=== PATIENT | male | born 1935 | race Caucasian/White ===

== ENCOUNTER 2025-02-06 14:50 | Inpatient (IN) | payer MEDICARE, SELFPAY ==
[2025-02-06] VITALS (32 sets, daily range): BP systolic 100–160; BP diastolic 41–110; PULSE 35–89; RESP 13–30; TEMP 36.4–36.5; O2SAT 90–100; BMI 24.5
--- NOTE | ~2025-02-06 | CT_ITS ---
CT cervical spine wo con Ordering provider: Fernando Banuelos MD History: . Found down . Comparison: None. Technique: CT of the cervical spine was performed without contrast. Sagittal and coronal reformatted images were also obtained and reviewed. Automated exposure control and iterative reconstruction satish hnique were employed. The dose-length product was 459.76 mGy-cm. FINDINGS: VERTEBRAE: No subluxation or acute fracture. The occipital condyles are intact. Postoperative changes involving C5, C6 and C7. 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 DISC SPACES: Normal. Multilevel facet joint disease.. Multilevel uncovertebral joint osteoarthritic changes. Narrowing of the foramina at the level of C3-C4. Narrowing of the left foramina at the level of C4-C5. PARASPINOUS SOFT TISSUES: Normal. Atelectatic changes in the right lung posteriorly. Enlarged thyroid gland with nodules. Ultrasound ev aluation advised. IMPRESSION: No acute osseous abnormality cervical spine. Multilevel degenerative disc disease. Postoperative changes. Reviewed, dictated and finalized at location A.
--- NOTE | ~2025-02-06 | XR_ITS ---
XR knee LT 3V Ordering provider: Raza Terrazas MD History: . pain after a fall . Comparison: None. FINDINGS: BONES: No acute fracture or dislocation. JOINT SPACES: Normal. SOFT TISSUES: Normal. IMPRESSION: No acute osseous abnormality left knee. Reviewed, dictated and finalized at location A.
--- NOTE | ~2025-02-06 | US_ITS ---
Limited Abdominal Sonogram: Real-time sonographic imaging of the right upper quadrant was performed. Clinical History: Abnormal gallbladder on CT Findings: The liver appears echogenic, with no evidence of mass lesion or bile duct dilatation. Main portal vein demonstrates normal direction of flow. The gallbladder dose is mild wall thickening up t o 4 mm. Questionable stone at the gallbladder fundus. The common bile duct measures 5 mm. The visual ized pancreas, aorta, and IVC are unremarkable. Impression: Mild gallbladder wall thickening. Questionable gallstone. Consider MR/MRCP as indicated. Reviewed, dictated and finalized at location M. Impression: Mild gallbladder wall thickening. Questionable gallstone. Consider MR/MRCP as i ndicated.
--- NOTE | ~2025-02-06 | CT_ITS ---
CT brain wo con Ordering provider: Fernando Banuelos MD History: 89 years Male with . Found down, unresponsive . Comparison: July 02, 2007 Technique: CT of the head without contrast. Radiation reduction technique utilized.The dose-length pr oduct was 1210.67 mGy-cm. FINDINGS: BRAIN PARENCHYMA AND CSF SPACES: Mild leukoaraiosis and diffuse cortical atrophy. Mild atheromatous d isease. No midline shift, mass effect or hemorrhage. The brain parenchyma and CSF spaces are otherwi se normal. VISUALIZED PARANASAL SINUSES: Bilateral maxillary and ethmoid sinus disease. Otherwise, Well aerated. MASTOIDS: Status post left mastoidectomy with soft tissue density which may be fluid is seen in the l eft middle ear. Effusion is seen in the remaining left mastoid air cells and in the right mastoid air cells posteriorly. BONES: The bones appear intact. SOFT TISSUES: Visualized nasopharynx is normal. Superficial soft tissues are normal. IMPRESSION: No acute intracranial findings. Reviewed, dictated and finalized at location A.
--- NOTE | ~2025-02-06 | CT_ITS ---
EXAMINATION: CTA chest abdomen pelvis DATE: 02/06/2025 16:42 INDICATION: Found down and unresponsive TECHNIQUE: Computed tomographic angiography (CTA) of the chest, abdomen and pelvis was performed with 100 cc of Omnipaque-350 intravenous contrast. Additional 3D reconstructions utilizing rotating maxim um intensity projection (MIP) were performed. Automated exposure control and iterative reconstruction technique were employed. The dose-length product was 1116.75 mGy-cm. COMPARISON: None FINDINGS: Chest: There are few scattered bilateral calcified pulmonary nodules along with calcified bilateral hilar an d mediastinal lymph nodes consistent with old granulomatous disease. Dependent atelectasis in the alo ateral upper and lower lobes. No pneumonia, pulmonary edema, pleural effusion or pneumothorax. Cardio megaly. Atherosclerotic coronary artery calcification. No pericardial effusion. Thoracic aorta is nor mal in caliber with no dissection. No pathologically enlarged thoracic lymphadenopathy. Multinodular goiter with up to 3.6 cm mass in the left thyroid lobe. Possible small sliding-type hiatal hernia. C5 -C6 and C6-C7 anterior spinal fusion with interbody bone graft cages and anterior plate-screw fixatio n. There are bridging osteophytes at multiple levels in the thoracic spine consistent with diffuse id iopathic skeletal hyperostosis (DISH). Abdomen and pelvis: Stenting of the distal common bile duct extending through the ampulla into the duodenum with secondar y pneumobilia in the normal caliber common bile duct, the nondilated gallbladder and in the nondepend ent intrahepatic biliary tree in the left hepatic lobe. There is edematous wall thickening of the gal lbladder but without surrounding inflammatory stranding or dilation to suggest acute cholecystitis. S pleen, pancreas and bilateral adrenal glands are normal. There are multiple bilateral renal cysts. Th ere is severe left hydronephrosis with no evident obstructing stone or mass at the transition point a t the ureteropelvic junction. Asymmetric moderate to severe left-sided and mild right-sided renal atr ophy. There are few scattered colonic diverticula without adjacent inflammatory stranding to suggest diverticulitis. No bowel obstruction. Distention of the bladder which could be related to outlet obst ruction from the enlarged prostate which measures 5.6 x 4.9 cm. 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 No free intraperitoneal gas or fluid. No pathologically enlarged abdomin al or pelvic lymphadenopathy. Moderate lumbar spondylosis with L4 laminectomy and instrumented L4-L5 posterior spinal fusion with bilateral vertical saniya and pedicle screw fixation. Abdominal aorta is normal in caliber with extensive nonhemodynamically significant atherosclerotic pl aque. No aneurysm or dissection. 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 IMPRESSION: 1. Dependent atelectasis in both lungs. No aortic aneurysm, dissection or other acute cardiopulmonary disease. 2. Cardia megaly. 3. Possible small sliding-type hiatal hernia. 4. Pneumobilia likely related to a distal biliary stent. 5. Edematous wall thickening of the gallbladder but without dilation or pericholecystic inflammatory stranding to suggest acute cholecystitis is more likely related to either chronic cholecystitis, hear t failure, renal failure or other generalized edema forming states. 6. 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 7. 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 8. Distended bladder which could be due to chronic outlet obstruction from the enlarged prostate. Reviewed, dictated and finalized at location A. IMPRESSION: 1. Dependent atelectasis in both lungs. No aortic aneurysm, dissection or other acute cardiopulmonary disease. 2. Cardia megaly. 3. Possible small sliding-type hiatal hernia. 4. Pneumobilia likely related to a distal biliary stent. 5. Edematous wall thickening of the gallbladder but without dilation or pericho lecystic inflammatory stranding to suggest acute cholecystitis is more likely r elated to either chronic cholecystitis, heart failure, renal failure or other g eneralized edema forming states. 6. 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 7. 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 8. Distended bladder which could be due to chronic outlet obstruction from the enlarged prostate.
--- NOTE | ~2025-02-06 | XR_ITS ---
Exam: Abdomen 1V HISTORY: Pancreatic Stent Placement Verification COMPARISON: Reference is made to a CT examination of the chest abdomen and pelvis dated 02/06/2025 TECHNIQUE: Supine images of the abdomen FINDINGS: Redemonstration of what appears to be a bare metal stent, better seen on recent CT examination within the distal common bile duct rather than the pancreatic duct. The orientation of the stent is unchanged from recent CT scan. IMPRESSION: Orientation of the biliary stent is unchanged from recent CT examination dated 02/06/2025, as detailed above. Reviewed, dictated and finalized at location A.
--- NOTE | 2025-02-06 14:58 | ECG_ITS ---
Test Date: 2025-02-06 15:05:51 Measurements Intervals [place] Rate: 59 P: 0 CA: 0 QRS: 34 QRSD: 149 T: 40 QT: 475 QTc: 471 Interpretive Statements SINUS BRADYCARDIA WITH MARKED FIRST DEGREE AV BLOCK WITH VENTRICULAR PREMATURE COMPLEXES RIGHT BUNDLE BRANCH BLOCK BASELINE ARTIFACT- I, II, II, AVR, AVL, AVF, V1-V6 ABNORMAL ECG No previous ECG available for comparison Electronically Signed On 02-06-2025 15:12:49 CDT by Frederick Fried D.O.
--- NOTE | 2025-02-06 15:21 | ECG_ITS ---
Test Date: 2025-02-06 15:23:19 Measurements Intervals [place] Rate: 48 P: 0 [place]: 0 QRS: 22 QRSD: 158 T: 31 QT: 495 QTc: 443 Interpretive Statements SINUS RHYTHM WITH SECOND DEGREE AV BLOCK, TYPE I (MOBITZ I) RIGHT BUNDLE BRANCH BLOCK BASELINE ARTIFACT- I, II, III, AVR, AVL, AVF, V1-V6 ABNORMAL ECG Compared to ECG 02/06/2025 15:05:51 SECOND DEGREE AV BLOCK NOW PRESENT Electronically Signed On 02-06-2025 15:32:12 CDT by Frederick Fried D.O.
[2025-02-06 15:26] LABS: Basophils Percent Auto 0.4 % (0.2-1.2); Eosinophils Absolute Auto 0.1 K/mm3 (0-0.3); Eosinophils Percent Auto 0.6 % (0-4.4); Hematocrit 35.3 % (42.0-52.0); Hemoglobin 11.7 g/dL (14.0-18.0); Immature Granulocyte Absolute 0.03 K/mm3 (0.00-0.031); Immature Granulocyte Percent A 0.3 % (0-0.5); Lymphocytes Absolute Auto 1.59 K/mm3 (0.9-3.2); Lymphocytes Percent Auto 15.8 % (18.3-44.2); Mean Corpuscular HGB Conc 33.1 g/dl (32-36); Mean Corpuscular Hemoglobin 30.2 pg (26-34); Mean Corpuscular Volume 91.2 fl (80-100); Mean Platelet Volume 9.9 fl (7.4-10.4); Monocytes Absolute Auto 1.1 K/mm3 (0.1-0.6); Monocytes Percent Auto 10.9 % (2.6-8.5); Neutrophils Absolute Auto 7.2 K/mm3 (1.3-6.7); Platelet Count Result 307 k/mm3 (150-375); Red Blood Count 3.87 M/mm3 (4.6-6.20); Red Cell Distribution Width 14.4 % (11.5-14.5); White Blood Count 10.1 K/mm3 (4.5-10.0)
[2025-02-06] MEDS: NALOXONE HCL 0.4 MG/ML VIAL IV PUSH (15:27)
[2025-02-06 15:30] LABS: Glucose Point of Care 106 mg/dl (65-105)
[2025-02-06 15:38] LABS: Alanine Aminotransferase 17 U/L (6-50); Albumin Level 4.1 g/dL (3.5-5.1); Alkaline Phosphatase 152 U/L (38-126); Anion Gap 11 mmol/L (4-12); Aspartate Amino Transferase 24 U/L (17-59); Bilirubin,Total 0.7 mg/dL (0.2-1.3); Blood Urea Nitrogen 52 mg/dL (9-20); Calcium 8.8 mg/dL (8.4-10.2); Carbon Dioxide 21 mmol/L (22-30); Chloride 105 mmol/L (98-107); Estimated CRCL calculation 18 ml/min; Estimated Glomerular Filt Rate 22; Glucose 111 mg/dL (65-110); Potassium 4.6 mmol/L (3.4-5.0); Sodium 137 mmol/L (137-145)
[2025-02-06 15:42] LABS: INR 1.1; Prothrombin Time 14.6 Seconds (11.1-14.7)
[2025-02-06 15:43] LABS: Add Urine Microscopic? YES; Appearance Urine Cloudy (Clear); Bacteria Urine 4+ /hpf; Bilirubin Urine Negative (Negative); Blood Urine 2+ (Negative); Color Urine Yellow (Yellow); Glucose Urine UA Negative (Negative); Ketones Urine Negative (Negative); Leukocyte Esterase Ur 3+ LEU/UL (Negative); Nitrate Urine Negative (Negative); Protein Urine 1+ mg/dL (Negative); RBC Urine 21-50 /hpf (0-2); Specific Grav Ur 1.015 (1.001-1.035); Squamous Epithelial Cell Urine None Seen /hpf (Few); Urobilinogen Urine 0.2 mg/dL (<2.0); WBC Urine >100 /hpf (0-3); pH Urine 5.5 (5.0-9.0)
--- OUTSIDE RECORDS SUMMARY | 2025-02-06 15:45 | XMS_ITS | Clinical Summary ---
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 Name Role Phone Unavailable Primary Care Provider Unavailabl e Social History Tobacco Use Types Packs/Day Years Used Date Smoking Tobacco: Never Assessed Sex and Gender Information Value Date Recorded Sex Assigned at Not on file Legal Sex Male 5:43 PM CDT Gender Identity Not on file Sexual Orientation Not on file Plan of Treatment Health Maintenance Due Date Last Done Comments DTaP, Tdap and Td Vaccines ( 1 - Tdap) 1956 Zoster Vaccines (1 of 2) 1987 Pneumococcal Vaccine: 65+ Ye ars (1 of 1 - PCV) 2002 RSV Immunization or 60+ Years (1 - 1-dose 75+ series) 2012 COVID-19 Vaccine ( - 2023-2 5 season) 2024 Meningococcal B Vaccine Aged Out No l onger eligible based on patient's age to complete this topic Meningococcal Vaccine Aged Out No suyapa homer eligible based on patient's age to complete this topic RSV Immunizations Under 20 Months Aged Out No longer eligible based on patient's age to complete this topic
--- OUTSIDE RECORDS SUMMARY | 2025-02-06 15:46 | XMS_ITS | Clinical Summary ---
Author Organization [facility] Address [address] [place] [address] Care Team Providers Care Back Shoe Operator Name Role Phone Patricio Yeboah MD Primary Care Provider [phone] Allergies No known active allergies Medications miscellaneous medical supply misc 1 each once for 1 dose 1 each 1 02/12/20 24 Active mometasone (NASONEX) 50 mcg/actuation nasal sprayIndication s:Seasonal allergic rhinitis, unspecified trigger Administer 2 sprays into each nostril daily 17 g 11/11/19 25 Active diclofenac sodium (VOLTAREN) 1 % gel Apply 4 g topically 4 (four) times a day 200 g 01/07/20 25 026 Active lisinopril-hydr oCHLOROthiazide (ZESTORETIC) 20-25 mg per tabletIndicatio ns:hypertension Take 2 tablets by mouth daily 60 tablet 11 01/10/20 25 026 Active terazosin (HYTRIN) 5 mg capsuleIndicati ons:Primary hypertension,Be nign prostatic hyperplasia with nocturia Take 1 capsule (5 mg total) by mouth nightly 90 capsule 1 01/10/20 25 026 Active atenoloL (TENORMIN) 25 mg tabletIndicatio ns:Essential hypertension,Pr imary hypertension Take 1 tablet (25 mg total) by mouth daily 90 tablet 3 01/10/20 25 026 Active amLODIPine (NORVASC) 10 mg tabletIndicatio ns:Essential hypertension Take 1 tablet (10 mg total) by mouth daily 90 tablet 2 01/10/20 25 Active traMADoL (ULTRAM) 50 mg tabletIndicatio ns:Chronic midline low back pain without sciatica Take 1 tablet (50 mg total) by mouth every 8 (eight) hours as needed for pain 90 tablet 3 01/10/20 25 Active zolpidem CR (AMBIEN CR) 12.5 mg CR tabletIndicatio ns:Insomnia Take 1 tablet (12.5 mg total) by mouth nightly as needed for sleep 30 tablet 3 01/10/20 25 025 Active pregabalin (LYRICA) 25 mg capsuleIndicati ons:Neuropathy Take 2 capsules (50 mg total) by mouth nightly 180 capsule 3 01/10/20 25 026 Active testosterone 20.25 mg/1.25 gram (1.62 %) gel in metered-dose pumpIndications :Male hypogonadism Place 1 Pump on the skin daily 75 g 5 01/10/20 25 Active pregabalin (LYRICA) 25 mg capsule Take 2 capsules (50 mg total) by mouth nightly 180 capsule 3 05/10/20 23 025 Discontinued(R eorder) traMADoL (ULTRAM) 50 mg tabletIndicatio ns:Chronic midline low back pain without sciatica Take 1 tablet (50 mg total) by mouth every 8 (eight) hours as needed for pain 90 tablet 3 08/12/20 24 025 Discontinued lisinopril-hydr oCHLOROthiazide (ZESTORETIC) 20-25 mg per tabletIndicatio ns:hypertension Take 2 tablets by mouth daily 60 tablet 11 11/11/19 25 025 Discontinued(R eorder) terazosin (HYTRIN) 5 mg capsuleIndicati ons:Primary hypertension,Be nign prostatic hyperplasia with nocturia Take 1 capsule (5 mg total) by mouth nightly 90 capsule 1 11/11/19 25 025 Discontinued(R eorder) testosterone 20.25 mg/1.25 gram (1.62 %) gel in metered-dose pumpIndications :Male hypogonadism Place 1 Pump on the skin daily 75 g 5 11/11/19 25 025 Discontinued(R eorder) atenoloL (TENORMIN) 50 mg tabletIndicatio ns:Essential hypertension,Pr imary hypertension Take 1 tablet (50 mg total) by mouth daily 90 tablet 3 11/11/19 25 025 Discontinued amLODIPine (NORVASC) 10 mg tabletIndicatio ns:Essential hypertension Take 1 tablet (10 mg total) by mouth daily 90 tablet 2 11/11/19 25 025 Discontinued(R eorder) zolpidem CR (AMBIEN CR) 12.5 mg CR tabletIndicatio ns:Insomnia Take 1 tablet (12.5 mg total) by mouth nightly as needed for sleep 30 tablet 3 12/31/19 25 025 Discontinued(R eorder) traMADoL (ULTRAM) 50 mg tabletIndicatio ns:Chronic midline low back pain without sciatica Take 1-2 tablets (50-100 mg total) by mouth every 8 (eight) hours as needed for pain 60 tablet 12/31/19 25 025 Discontinued Active Problems Problem Noted Date Diagnosed Date Choledocholithiasis 01/20/2025 Erosive osteoarthritis of both hands 01/06/2025 Dental caries 08/12/2024 Hearing aid worn 05/12/2024 Pseudophakia of both eyes 03/20/2024 Assessment & Plan (03/20/2024 1:13 PM CDT): Stable. Observe. Epiretinal membrane (ERM) of right eye Assessment & Plan (03/20/2024 1:14 PM CDT): Minimal impact on vision at present. Observe. 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 Pre-treatment iop: 30/27. S/p SLT. IOP great today off drops. No loss on OCT. CTM off drops. F/u annually. 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 IOP high pretreatment. Has significant trouble with medications - SLT may not eliminate gtts. R/B/A discussed, offered SLT OU today. Pt would like to proceed with SLT OU today. Depression screening:Neg 2020 NOv 12/02/2019 Neuropathy 07/30/2019 Primary insomnia 06/16/2019 Alcohol screening Neg 11/2006/16/2019 Male hypogonadism 03/04/2019 Eczema 02/12/2019 Chronic midline low back pain without sciatica 0 12/03/2018 CRD (chronic renal disease), stage III 8 Does not exercise 09/05/2016 Chronic fatigue 07/08/2015 Erectile dysfunction 04/16/2014 Hypertension 06/27/2011 Hypogonadism in male 03/09/2008 Enlarged prostate without lo wer urinary tract symptoms (luts) 03/09/2008 Resolved Problems Problem Noted Date Diagnosed Date Resolved Date Medicare annual wellness vis it, subsequent:05/1705/18/2020 11/15/2021 Acute low back pain with right-sided sciatica 05/06/20 19 06/16/2019 Rash 01/29/2019 12/02/2019 Sudden hearing loss, bilateral 06/12/2018 06/03/2019 Assessment & Plan (06/12/2018 3:17 PM CDT): - likely secondary cerumen impaction; otherwise his SNHL is long-standing Bilateral impacted cerumen 06/12/2018 0 06/18/2018 Assessment & Plan (06/12/2018 3:16 PM CDT): I discussed the management of cerumen impaction, which includes avoiding q-tips and manipulation of the ear canal. The patient may also try either a few drops mineral oil, sweet oil, diluted hydrogen peroxide, or Debrox once a week 10-15 minutes prior to showering. The patient was advised to call if the ear canal became painful, started draining, or hearing loss was noticed. 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 06/12/2018 06/18/2018 Assessment & Plan (06/12/2018 3:17 PM CDT): - recommend trial of hearing aids Nuclear sclerotic cataract 11/15/2016 0 04/09/2019 Encounters Date Type Department Care Team Description 02/06/2025 Telephone [facility] Gastroenterology [address] [place] [address] Medical Office Building [address], [address] [place] [phone] Vaishali Nowak RN GI call back 02/05/2025 Telephone [facility] Gastroenterology [address] [place] [address] Medical Office Building [address], [address] [place] [address] Vaishali Nowak RN GI post ERCP kub recs 01/27/2025 2:30 PM CDT - 01/27/2025 3:30 PM CDT Surgery [address] [place] [id number] Doug Maldonado MD ENDO ENDOSCOPIC RETROGRADE CHOLANGIOPANCREATOGRAPHY WITH STENT PLACEMENT [GI509] 01/27/2025 2:16 PM CDT Anesthesia Event [address] [place] [id number] Teo Boykin MD Leach, Shannin L., CRNA 01/27/2025 1:51 PM CDT - 01/27/2025 4:35 PM CDT Hospital Encounter [address] [place] [id number] Doug Maldonado MD Calculus of bile duct without cholecystitis and without obstruction Discharge Disposition: Discharge to home or self care 01/21/[address] [phone] Patricio Yeboah MD 01/20/2025 3:20 PM CDT Office Visit [address] [phone] Patricio Yeboah MD Choledocholithiasis (Primary Dx) 01/16/2025 7:26 AM CDT - 01/16/2025 11:59 PM CDT Hospital Encounter [facility] Radiology [address] [place] [address] Elevated alkaline phosphatas e level; Transaminitis Discharge Disposition: Discharge to home or self care 01/16/2025 Telephone [facility] Services [address] [place] [address] Noemy Mascorro RN GI Preprocedure 01/16/2025 Orders Only [address] [phone] Patricio Yeboah MD Calculus of bile duct without cholecystitis and without obstruction (Primary Dx) 01/13/2025 Results Follow-Up [address] [phone] Maisha Carrera CMA 01/12/[address] [phone] Patricio Yeboah MD 01/12/2025 Orders Only [address] [phone] Patricio Yeboah MD Elevated alkaline phosphatase level (Primary Dx); Transaminitis 01/09/2025 2:20 PM CDT Office Visit [address] [phone] Patricio Yeboah MD Neuropathy (Primary Dx); Essential hypertension; Primary hypertension; Benign prostatic hyperplasia with nocturia; Chronic midline low back pain without sciatica; Primary insomnia; Male hypogonadism 01/06/2025 2:00 PM CDT Office Visit [facility] Rhe[facility]ology [id number] 5[address] [place] [address] [place] [phone] Eliseo Ziegler MD PhD Erosive osteoarthritis of both hands (Primary Dx); Pain in both hands 12/03/[address] [phone] Patricio Yeboah MD Med Refill 11/12/[address] [phone] Patricio Yeboah MD 11/11/2024 11:35 AM NITROGLYCERIN SUPERVISOR Lab [address] [phone] 11/11/2024 10:20 AM NITROGLYCERIN SUPERVISOR Office Visit [address] [phone] Patricio Yeboah MD Chronic fatigue (Primary Dx); Essential hypertension; Primary hypertension; Male hypogonadism; Stage 3b chronic kidney disease (HCC); Benign prostatic hyperplasia with nocturia; Primary insomnia; Seasonal allergic rhinitis, unspecified trigger from Last 3 Months Immunizations Immunization Administration Dates Next Due DT 03/02/2015 Influenza, Quadrivalent, Hig h Dose, Preservative Free, Intrr 08/24/2023,08/22/2022,08/16/2021,08/17 Influenza, Trivalent, Adjuva nted, Intramuscular 08/01/2018 Influenza, Trivalent, High D ose, Split, Preservative Free, Intramuscular 08/12/2024,07/04/2019,07/31/2017,07/08 Influenza, Trivalent, Preser vative Free, Intramuscular 07/13/2016 Influenza, Unspecified 07/29/2021,2019,08/12/2014,07/29,08/29/2009,08/03/2006,08/31/2005 ,09/05/2003,09/04/2002,09/05/2001 Moderna SARS-CoV-2 Monovalen t Vaccination (12+ YRS) 03/09/2022,09/12/2021,01/09/2021,12/12 Pneumococcal Conjugate PCV 13 03/02/2015, 013 Pneumococcal Conjugate Pcv20 01/30/2023 Pneumococcal Polysaccharide PPV23 11/27/2005 Pneumococcal, Unspecified 11/27/2005 Tdap 12/21/2023,08/12/2014 ZOSTER Recombinant 06/17/2019,03/29/2018 Surgical History Surgery Date Site/Laterality Comments BACK SURGERY Back Surgery - spinal fusion (Added by TW Conv) [place] TRACHEOSTOMY PLANNED SEPA RATE PROCEDURE Tracheostomy - for appx 4 months 1996 (Added by TW Conv) EYE SURGERY CATARACT EXTRACTION Bilateral Medical History Medical History Date Comments Personal history of other di seases of the circulatory system History of hypertension - (A dded by TW Conv) 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 - (Added by TW Conv) Rash and other nonspecific s kin eruption Maculopapular rash, generali zed - (Added by TW Conv) Personal history of other in fectious and parasitic diseases History of scabies - (Added by TW Conv) Pain in right hip Right hip pain - (Added by TW Conv) Generalized skin eruption du e to drugs and medicaments taken internally Cephalosporin drug ra sh - (Added by TW Conv) Family History Medical History Relation Name Comments Heart attack Brother Cancer Father Lung Heart attack Mother Family history of myocardial infarction - mi (Added by TW Conv) Glaucoma Neg Hx Relation Name Status Comments Brother Father Mother Social History Tobacco Use Types Packs/Day Years Used Date Smoking Tobacco: Never Smokeless Tobacco: Never Tobacco Cessation:Counseling Given: Not Answered Alcohol Use Standard Drinks/Week Comments Not Currently 0 (1 standard drink = 0.6 oz pur e alcohol) AUDIT-C Answer Date Recorded Q1: How often do you have a drink containing alc ohol? Never 01/27/2025 Average Number of Drinks Not on file 025 Frequency of Binge Drinking Not on file 10/2024 PHQ-2 Answer Date Recorded PHQ-2 Total Score (If total score is 3 or more points, staff should administer the PHQ-9) 0 05/16/2022 Personal Safety Answer Date Recorded Have you ever been in or are you currently in a harmful physical or emotional relationship or is someone making you feel afraid or unsafe? 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 Gender Identity Not on file Sexual Orientation Not on file Occupation Industry Job Start Date Job End Date Retired Not on file Not on file Not on file Obstetrics History Last Filed Vital Signs Vital Sign Reading Time Taken Comments Blood Pressure 113/60 01/27/2025 4:16 PM CDT Pulse 43 01/27/2025 4:16 PM CDT Temperature 36.1 C (97 F) 01/27/2025 3:16 PM CDT Respiratory Rate 17 01/27/2025 4:16 PM CDT Oxygen Saturation 96% 01/27/2025 4:16 PM CDT Inhaled Oxygen Concentration - - Weight 79.4 kg (175 lb) 01/27/2025 2:04 PM CDT Height 175.3 cm (5' 9 ) 01/27/2025 2:04 PM CDT Body Mass Index 25.84 01/27/2025 2:04 PM CDT Plan of Treatment Health Maintenance Due Date Last Done Comments Hepatitis B Screening 1953 Depression Screening 05/16/2023 05/16/2022 Covid-19 Vaccine (2023-11 5 season) 2024 03/09/2022, 09/12/2021, 01/09/2021, Additional history exists Well Visit 65+ 05/12/2025 05/12/2024, 04/28, 05/16/2022, Additional history exists Fall Risk Assessment 01/27/2026 01/27/2025, 05/16/20 22 DTaP/Tdap/Td Vaccine (4 - Td or Tdap) 12/21/2033 12/21/2023, 03/02/2015, 08/12/2014 Zoster Vaccine Completed 06/17/2019, 03/29/2018 Pneumococcal vaccine 65+ Completed 023, 03/02/2015, 08/25/2013, Additional history exists Influenza Vaccine Completed 08/12/2024, , 08/22/2022, Additional history exists Medical Devices Implanted Type Area Family Medicine Physician Assistant Device Identifier Shelf Expiration Date Model / Serial / Lot [employer] Carvalho 5fr 9cm Pancreatic Stent [id number] - [id number] Implanted:Qty: 1 on 01/27/2025 by Doug Maldonado MD at [facility] N/A: Pancreas [employer] 08/29/2029 [id number] / / [id number] Conmed Lashanda Viabil 8mm X 4cm Shortwire [id number] - [id number] - [id number] Implanted:Qty: 1 on 01/27/2025 by Doug Maldonado MD at [facility] N/A: Bile Duct [employer] L[employer] 09/29/2027 [id number] / [id number] / Procedures Procedure Name Priority Date/Time Associated Diagnosis Comments ERCP IP Routine 01/27/2025 3:12 PM CDT Calculus of bile duct without cholecystitis and without obstruction ERCP IP Routine 01/27/2025 3:12 PM CDT Calculus of bile duct without cholecystitis and without obstruction ERCP IP Routine 01/27/2025 3:12 PM CDT Calculus of bile duct without cholecystitis and without obstruction ERCP IP Routine 01/27/2025 3:01 PM CDT RAD S AND I BILIARY AND PANCREATIC DUCTAL SYSTEMS 01/27/2025 2:16 PM CDT Calculus of bile duct without cholecystitis and without obstruction ERCP 01/27/2025 1:54 PM CDT US ABDOMEN COMPLETE Schedule Routine, Read Routine (OP Routine) 01/16/2025 9:14 AM CDT Elevated alkaline phosphatase level Transaminitis TOTAL TESTOSTERONE Routine 01/09/2025 2: 39 PM CDT Male hypogonadism COMPREHENSIVE METABOLIC PANEL Routine 01/09/2025 2:39 PM CDT Essential hypertension CBC WITH AUTO DIFFERENTIAL Routine 01/09/2025 2:39 PM CDT Essential hypertension Male hypogonadism PSA SCREEN Routine 01/09/2025 2:39 PM CDT Benign prostatic hyperplasia with nocturia Male hypogonadism TOTAL TESTOSTERONE Routine 11/11/2024 11:17 AM NITROGLYCERIN SUPERVISOR Male hypogonadism COMPREHENSIVE METABOLIC PANEL Routine 11/11/2024 11:17 AM NITROGLYCERIN SUPERVISOR Chronic fatigue CBC WITH AUTO DIFFERENTIAL Routine 11/11/2024 11:17 AM NITROGLYCERIN SUPERVISOR Chronic fatigue Male hypogonadism from Last 3 Months Results * FL ERCP Biliary and Pancreatic (01/27/2025 3:01 PM CDT) Narrative RAD_PACS_[facility] - 01/27/2025 3:01 PM CDT The images from this study are not interpreted by Radiology. Please refer to the physician's procedure / OR operative note. us Doug Maldonado MD IMG FLUOROSCOPY PROCEDURES Final Result RAD_PACS[facility] * ERCP (01/27/2025 1:54 PM CDT) Anatomical Region Laterality Modality Other Narrative Procedure Note Doug Maldonado MD - 01/27/2025 1:54 PM CDT GI ENDOSCOPY [facility] Patient Name: Jose Armando Filter Procedure Date: 01/27/2025 1:54 PM Date of : 1935 Admit Type: Outpatient Age: 89 Gender: Male Attending MD: Doug Maldonado M.D. Room: [facility] ENDOSCOPY ROOM 1 Note Status: Finalized Procedure: ERCP Indications: Bile duct stone(s) Referring MD: Patricio Yeboah M.D. Providers: Doug Maldonado M.D. Medicines: Monitored Anesthesia Care Complications: No immediate complications. Estimated Blood Loss: Estimated blood loss: none. Procedure: Pre-Anesthesia Assessment: - The risks and benefits of the procedure and the sedation options and risks were discussed with the patient. All questions were answered and informed consent was obtained. - Immediately prior to administration ofmedications, the patient was re-assessed for adequacy to receive sedatives. The benefits, risks, and alternatives to theprocedure and sedation were discussed and informed consentwas obtained. The [id number] Duodenoscope wasintroduced through the mouth, and used to inject contrast into and used to inject contrast into the bile duct. The ERCP was accomplished without difficulty. Thepatient tolerated the procedure well. Findings: The basting cleaner film was normal. The esophagus was successfully intubated under direct vision without detailed examination of the pharynx,larynx, and associated structures, and upper GI tract. The upper GI tract was grossly normal. The major papilla was on the rim of a diverticulum.The ventral pancreatic duct was deeply cannulated with the short-nosed traction sphincterotome. Contrast was injected. I personallyinterpreted the pancreatic duct images. Ductal flow of contrast was adequate.Image quality was adequate. Contrast extended to the pancreatic duct. The entire opacified area was normal. A 0.035 inch x 260 cm straight Dreamwire was passed into the ventral pancreatic duct. The guidewirewas left in place to cannulate via the double wire technique. A 0.025inch x 450 cm straight Visiglide wire was passed into the biliary tree. The short-nosed traction sphincterotome was passed over the guidewire and the bile duct was then deeply cannulated. Contrast was injected. The main bile duct contained three stones, the largest of which was 6 mmin diameter. An 8 mm biliary sphincterotomy was made with a traction (standard) sphincterotome using ERBE electrocautery. There was no post-sphincterotomy bleeding. To discover objects, the biliary treewas swept with an 11.5 mm balloon starting at the upper third of the main bile duct. Three stones were removed. No stones remained. After stone removal there was a little oozing from the sphincterotomy site. One 5Fr by 9 cm plastic stent with a 3/4 external pigtail was placed into the ventral pancreatic duct. Clear fluid flowed through the stent. Thestent was in good position. One 8 mm by 4 cm covered metal stent was placed into the common bile duct. Bile flowed through the stent. The stentwas in good position. The endoscope was withdrawn from the patient. Impression: - The major papilla was on the rim of adiverticulum. - Choledocholithiasis was found. Complete removalwas accomplished by biliary sphincterotomy and balloon extraction. - A biliary sphincterotomy was performed. - The biliary tree was swept. - Normal limited pancreatogram, one plastic stentwas placed into the ventral pancreatic duct. - One covered metal stent was placed into thecommon bile duct. Recommendation: - Observe patient's clinical course. - Avoid aspirin and nonsteroidal anti-inflammatory medicines for 10 days. - Watch for pancreatitis, bleeding, perforation,and cholangitis. - Return to referring physician as previously scheduled. - Repeat ERCP in 4 months to remove stent. - KUB in 3 weeks to assess pancreatic duct stent. Attending Participation: I personally performed the entire procedure. Electronically signed by Doug Maldonado M.D. Doug Maldonado M.D. 02/04/2025 9:44:16 AM . Number of Addenda: 0 Note Initiated On: 01/27/2025 1:54 PM us Doug Maldonado MD ENDOSCOPY PROCEDURES Final Result * US Abdomen Complete (01/16/2025 9:14 AM CDT) Anatomical Region Laterality Modality Abdomen N/A Ultrasound 01/16/2025 9:51 AM CDT Impressions 01/16/2025 12:07 PM CDT 1. Dilated bile ducts with obstruction caused by multiple common bile duct stones. 2. Cystic area in the left renal sinus corresponding with a multilobulated cystic structure seen on comparison CT from 2014. This structure is grossly decreased in size compared to the 2014 exam. The Critical results were discussed with Dr. Yeboah by Dr. Espino on 01/16/2025 at 9:47 AM. Dictated by: Manijt Espino M.D. ([place]aman[place]) The radiology attending physician has personally reviewed this study, and had reviewed and/or edited this written report and agrees with it. Electronically signed by: London Madden M.D. Narrative 01/16/2025 12:07 PM CDT EXAMINATION: COMPLETE ABDOMINAL SONOGRAM HISTORY: 89-year-old male with elevated alkaline phosphatase and transaminitis. COMPARISON: Ultrasound 12/25/2013. Chest CT 07/22/2013. FINDINGS: Liver: The liver is normal in size. The echotexture is normal. The echogenicity is normal. There is no surface nodularity. No focal solid lesions are visualized. Gallbladder: The gallbladder is contracted. There are small stones and sludge within the gallbladder. There is no gallbladder wall thickening. Bile Duct: There is intrahepatic bile duct dilatation. The diameter of the common duct is 12 mm in the proximal segment and 10 mm in the mid segment and 6 mm in the distal segment. There are multiple stones in the distal segment of the common bile duct, one of them measuring 7 mm in size. Kidneys: There is a 3 x 2.6 x 1.8 cm simple simple cyst in the inferior pole of the right kidney. The left kidney is atrophic with cortical thinning and a cystic structure in the renal sinus that is decreased in size compared to prior examinations. Pancreas: The visualized portions of the pancreas demonstrate no focal lesions. The imaged portion of the pancreatic duct is normal. Spleen: The spleen is normal in size. Aorta: The proximal aorta is normal. Inferior vena cava: The proximal IVC is normal. Other Findings: There is no ascites. Procedure Note London Madden MD - 01/16/2025 EXAMINATION: COMPLETE ABDOMINAL SONOGRAM HISTORY: 89-year-old male with elevated alkaline phosphatase and transaminitis. COMPARISON: Ultrasound 12/25/2013. Chest CT 07/22/2013. FINDINGS: Liver: The liver is normal in size. The echotexture is normal. The echogenicity is normal. There is no surface nodularity. No focal solid lesions are visualized. Gallbladder: The gallbladder is contracted. There are small stones and sludge within the gallbladder. There is no gallbladder wall thickening. Bile Duct: There is intrahepatic bile duct dilatation. The diameter of the common duct is 12 mm in the proximal segment and 10 mm in the mid segment and 6 mm in the distal segment. There are multiple stones in the distal segment of the common bile duct, one of them measuring 7 mm in size. Kidneys: There is a 3 x 2.6 x 1.8 cm simple simple cyst in the inferior pole of the right kidney. The left kidney is atrophic with cortical thinning and a cystic structure in the renal sinus that is decreased in size compared to prior examinations. Pancreas: The visualized portions of the pancreas demonstrate no focal lesions. The imaged portion of the pancreatic duct is normal. Spleen: The spleen is normal in size. Aorta: The proximal aorta is normal. Inferior vena cava: The proximal IVC is normal. Other Findings: There is no ascites. IMPRESSION: 1. Dilated bile ducts with obstruction caused by multiple common bile duct stones. 2. Cystic area in the left renal sinus corresponding with a multilobulated cystic structure seen on comparison CT from 2014. This structure is grossly decreased in size compared to the 2014 exam. The Critical results were discussed with Dr. Yeboah by Dr. Espino on 01/16/2025 at 9:47 AM. Dictated by: Manjit Espino M.D. ([place]) The radiology attending physician has personally reviewed this study, and had reviewed and/or edited this written report and agrees with it. Electronically signed by: London Madden M.D. Patricio Yeboah MD IMG US PROCEDURES Final Re sult * (ABNORMAL) PSA screen (01/09/2025 2:39 PM CDT) Pathologist [facility] PSA, Total 9.7(HH) 0.0 - 4.0 ng/mL [facility] Comment:notified provider Blood 01/09/2025 2:39 PM CDT 01/09/2025 2:56 PM CDT Patricio Yeboah MD LAB BLOOD ORDERABLES Final Result [facility] [address] [place] [address] * (ABNORMAL) CBC with auto differential (01/09/2025 2:39 PM CDT) WBC 8.6 3.5 - 10.0 K/uL [facility] RBC 3.83(L) 4.60 - 6.20 M/uL [facility] Hemoglobin 11.7(L) 13.9 - 17.7 g/dL [facility] Hematocrit 33.0(L) 35.0 - 55.0 % [facility] MCV 86.1 75.0 - 100.0 fL [facility] MCH 30.70 25.00 - 35.00 pg [facility] MCHC 35.60 31.00 - 38.00 g/dL [facility] RDW 14.0 11.0 - 16.0 % [facility] Platelets 275 140 - 400 K/uL [facility] MPV 8.5 8.0 - 11.0 fL [facility] Granulocyte, Absolute 6.5 1.2 - 8.0 K/uL [facility] Lymphocyte, Absolute 1.6 0.5 - 5.0 K/uL [facility] Monocyte, Absolute 0.5 0.1 - 1.5 K/uL [facility] Granulocyte, Percentage 75.5 35.0 - 80.0 % [facility] Lymphocyte, Percentage 19.2 15.0 - 50.0 % [facility] Monocyte, Percentage 5.3 2.0 - 15.0 % [facility] Blood 01/09/2025 2:39 PM CDT 01/09/2025 2:56 PM CDT Patricio Yeboah MD LAB BLOOD ORDERABLES Final Result Performing Organization Address [facility] Co de Phone Number [facility] [address] [place] [address] * Total testosterone (01/09/2025 2:39 PM CDT) [facility] Testosterone 335.5 193.0 - 740.0 ng/dL [facility] Blood 01/09/2025 2:39 PM CDT 01/09/2025 2:56 PM CDT Patricio Yeboah MD LAB BLOOD ORDERABLES Final Result Performing Organization Address [facility] Co de Phone Number [facility] [address] [place] [address] * (ABNORMAL) Comprehensive metabolic panel (01/09/2025 2:39 PM CDT) Glucose 128 74 - 200 mg/dL [facility] BUN 39(H) 18 - 23 mg/dL [facility] Creatinine 2.0(H) 0.7 - 1.3 mg/dL [facility] eGFR 32 mL/min/1.7 3m2 [facility] BUN/Creat Ratio 20 Ratio [facility] Bilirubin, Total 1.0 0.0 - 1.2 mg/dL [facility] AST (SGOT) 64(H) 0 - 40 U/L [facility] ALT (SGPT) 53(H) 10 - 50 U/L [facility] Alkaline phosphatase 339(H) 40 - 129 U/L [facility] Calcium 8.6(L) 8.8 - 10.2 mg/dL [facility] Sodium 135 135 - 145 mEq/L [facility] Potassium 4.4 3.5 - 5.1 mEq/L [facility] Chloride 102 98 - 107 mEq/L [facility] CO2 22.2 22.0 - 32.0 mEq/L [facility] Anion Gap 11 3 - 12 mEq/L [facility] Total Protein 6.6 6.0 - 8.1 g/dL [facility] Albumin 3.7 3.5 - 5.2 g/dL [facility] Globulin 2.9 g/dL [facility] Albumin/Globulin 1.3 Ratio [facility] Blood 01/09/2025 2:39 PM CDT 01/09/2025 2:56 PM CDT Patricio Yeboah MD LAB BLOOD ORDERABLES Final Result Performing Organization Address City/State/[facility] Co de Phone Number [facility] [address] [place] [address] * CBC with auto differential (11/11/2024 11:17 AM NITROGLYCERIN SUPERVISOR) WBC 10.0 3.5 - 10.0 K/uL [facility] RBC 5.13 4.60 - 6.20 M/uL [facility] Hemoglobin 15.3 13.9 - 17.7 g/dL [facility] Hematocrit 44.1 35.0 - 55.0 % [facility] MCV 86.0 75.0 - 100.0 fL [facility] MCH 29.80 25.00 - 35.00 pg [facility] MCHC 34.70 31.00 - 38.00 g/dL [facility] RDW 13.8 11.0 - 16.0 % [facility] Platelets 223 140 - 400 K/uL [facility] MPV 9.3 8.0 - 11.0 fL [facility] Granulocyte, Absolute 7.7 1.2 - 8.0 K/uL [facility] Lymphocyte, Absolute 1.7 0.5 - 5.0 K/uL [facility] Monocyte, Absolute 0.6 0.1 - 1.5 K/uL [facility] Granulocyte, Percentage 77.7 35.0 - 80.0 % [facility] Lymphocyte, Percentage 17.1 15.0 - 50.0 % [facility] Monocyte, Percentage 5.2 2.0 - 15.0 % [facility] Blood 11/11/2024 11:1 7 AM NITROGLYCERIN SUPERVISOR 11/11/2024 11:29 AM NITROGLYCERIN SUPERVISOR Patricio Yeboah MD LAB BLOOD ORDERABLES Final Result Performing Organization Address [facility] de Phone Number [facility] [address] [place] [address] * Total testosterone (11/11/2024 11:17 AM NITROGLYCERIN SUPERVISOR) Pathologist [facility] Testosterone 278.8 193.0 - 740.0 ng/dL [facility] Blood 11/11/2024 11:1 7 AM NITROGLYCERIN SUPERVISOR 11/11/2024 11:29 AM NITROGLYCERIN SUPERVISOR Patricio Yeboah MD LAB BLOOD ORDERABLES Final Result Performing Organization Address [facility] de Phone Number [facility] [address] [place] [address] * (ABNORMAL) Comprehensive metabolic panel (11/11/2024 11:17 AM NITROGLYCERIN SUPERVISOR) Glucose 106 74 - 200 mg/dL [facility] BUN 40(H) 18 - 23 mg/dL [facility] Creatinine 2.3(H) 0.7 - 1.3 mg/dL [facility] eGFR 27 mL/min/1.7 3m2 [facility] BUN/Creat Ratio 18 Ratio [facility] Bilirubin, Total 0.2 0.0 - 1.2 mg/dL [facility] AST (SGOT) 21 0 - 40 U/L [facility] ALT (SGPT) 18 10 - 50 U/L [facility] Alkaline phosphatase 94 40 - 129 U/L [facility] Calcium 9.3 8.8 - 10.2 mg/dL [facility] Sodium 139 135 - 145 mEq/L [facility] Potassium 4.4 3.5 - 5.1 mEq/L [facility] Chloride 105 98 - 107 mEq/L [facility] CO2 24.8 22.0 - 32.0 mEq/L [facility] Anion Gap 9 3 - 12 mEq/L [facility] Total Protein 7.0 6.0 - 8.1 g/dL [facility] Albumin 4.1 3.5 - 5.2 g/dL [facility] Globulin 2.9 g/dL [facility] Albumin/Globulin 1.4 Ratio [facility] Blood 11/11/2024 11:1 7 AM NITROGLYCERIN SUPERVISOR 11/11/2024 11:29 AM NITROGLYCERIN SUPERVISOR Patricio Yeboah MD LAB BLOOD ORDERABLES Final Result Performing Organization Address City/State/[facility] Phone Number [facility] [address] [place] [address] from Last 3 Months Insurance [facility] MEDICARE ADVANTAGE [facility] Address: [facility] [address] [place] [address] [facility] MEDICARE ADVANTAGE MEDICARE COMMERCIAL GENERIC Member Subscriber Plan / Payer (Ef fective 2019-Present) Name:Jose Armando Greenberg Member ID:[id number] Relation to Subscriber:Self Name:Jose Armando Greenberg Subscriber ID:[id number] Payer ID:[id number] Type:COMMERCIAL Address: [place] [address] [facility] MEDICARE ADVANTAGE Care Teams Back Shoe Operator Relationship Specialty Start Date End Date Patricio Yeboah MD [address] [place] [address] PCP - General 12/11/16
--- OUTSIDE RECORDS SUMMARY | 2025-02-06 15:46 | XMS_ITS | Encounter Summary ---
Author Organization [facility] Address [address] [place] [address] Phone Care Team Providers Care Overnight Babysitter Name Role Phone Patricio Yeboah MD Primary Care Provider [phone] Reason for Visit * Reason Onset Date Comments GI post ERCP kub recs 02/05/2025 Encounter Details Date Type Department Care Team (Late st Contact Info) Description 02/05/2025 Telephone [facility] Gastroenterology [address] [place] [address] Medical Office [address] [place] [address] Vaishali Nowak RN GI post ERCP kub recs Social History Tobacco Use Types Packs/Day Years Used Date Smoking Tobacco: Never Smokeless Tobacco: Never Alcohol Use Standard Drinks/Week Comments Not Currently [...] on file 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 Gender Identity Not on file Sexual Orientation Not on file Occupation Industry Job Start Date Job End Date Retired Not on file Not on file Not on file documented as of this encounter Miscellaneous Notes * Telephone Encounter - Vaishali Nowak RN - 02/06/2025 10:58 AM CDT Called patient to discuss following information but had to leave a message for callback * Telephone Encounter - Vaishali Nowak RN - 02/05/2025 3:15 PM CDT Called patient to discuss following information but had to leave a message for callback ----- Message from Nurse Vaishali Duran sent at 02/05/2025 8:16 AM CDT ----- Regarding: post ERCP KUB 3 week due 02.17.2025 KUB in 3 weeks to assess pancreatic duct stent. documented in this encounter Plan of Treatment Not on file documented as of this encounter Visit Diagnoses Not on filedocumented in this encounter Care Teams Overnight Babysitter Relationship Specialty Start Date End Date Patricio Yeboah MD [address] [place] [address] PCP - General 12/11/16 documented as of this encounter
--- OUTSIDE RECORDS SUMMARY | 2025-02-06 15:46 | XMS_ITS | Referral Summary ---
Author Organization [facility] Address [address] [place] [address] Care Team Providers Care Associate Accountant Name Role Phone Patricio Yeboah MD Primary Care Provider [phone]- [phone] Encounters Date Type Department Care Team Description 02/06/2025 Telephone [facility] Gastroenterology [address] [place] [address] Office Building [address], [address] [place] [phone] Vaishali Nowak RN GI call back 02/05/2025 Telephone [facility] Gastroenterology [address] [place] [address] Medical Office Building [address], [address] [place] [phone] Vaishali Nowak RN GI post ERCP kub recs 01/27/2025 2:16 PM CDT Anesthesia Event [facility] Disease [address] [place] [address] Teo Boykin MD Leach, Shannin L., HAND WOOD SANDER 01/27/2025 2:30 PM CDT - 01/27/2025 3:30 PM CDT Surgery [facility] [address] [place] [address] Doug Maldoando MD ENDO ENDOSCOPIC RETROGRADE CHOLANGIOPANCREATOGRAPHY WITH STENT PLACEMENT [GI509] 01/27/2025 1:51 PM CDT - 01/27/2025 4:35 PM CDT Hospital Encounter [facility] [address] [place] [address] Doug Maldonado MD Calculus of bile duct without cholecystitis and without obstruction Discharge Disposition: Discharge to home or self care 01/21/[address] [address] Patricio Yeboah MD 01/20/2025 3:20 PM CDT Office Visit [address] [address] Patricio Yeboah MD Choledocholithiasis (Primary Dx) 01/16/2025 Telephone [facility] Specialty Services [address] [place] [address] Noemy Mascorro RN GI Preprocedure 01/16/2025 Orders Only [address] [address] Patricio Yeboah MD Calculus of bile duct without cholecystitis and without obstruction (Primary Dx) 01/16/2025 7:26 AM CDT - 01/16/2025 11:59 PM CDT Hospital Encounter [facility] Radiology [address] [place] [address] Elevated alkaline phosphatas e level; Transaminitis Discharge Disposition: Discharge to home or self care 01/13/2025 Results Follow-Up [address] [phone] Maisha Carrera CMA 01/12/[address] [phone] Patricio Yeboah MD 01/12/2025 Orders Only [address] [phone] Patricio Yeboah MD Elevated alkaline phosphatase level (Primary Dx); Transaminitis 01/09/2025 2:20 PM CDT Office Visit [address] [phone] Patricio Yeboah MD Neuropathy (Primary Dx); Essential hypertension; Primary hypertension; Benign prostatic hyperplasia with nocturia; Chronic midline low back pain without sciatica; Primary insomnia; Male hypogonadism 01/06/2025 2:00 PM CDT Office Visit [facility] Rheumatology [address] [facility] 5[address] [place] [address] [place] [address] Eliseo Ziegler MD PhD Erosive osteoarthritis of both hands (Primary Dx); Pain in both hands 12/03/[address] [address] Patricio Yeboah MD Med Refill 11/12/[address] [address] Patricio Yeboah MD 11/11/2024 11:35 AM BEEF GRADER Lab [address] [address] 11/11/2024 10:20 AM BEEF GRADER Office Visit [address] [phone] Patricio Yeboah MD Chronic fatigue (Primary Dx); Essential hypertension; Primary hypertension; Male hypogonadism; Stage 3b chronic kidney disease (HCC); Benign prostatic hyperplasia with nocturia; Primary insomnia; Seasonal allergic rhinitis, unspecified trigger from Last 3 Months Allergies No known active allergies Medications miscellaneous medical supply misc 1 each once for 1 dose 1 each 02/12/20 24 Active mometasone (NASONEX) 50 mcg/actuation nasal sprayIndication s:Seasonal allergic rhinitis, unspecified trigger Administer 2 sprays into each nostril daily 17 g 11/11/19 25 Active diclofenac sodium (VOLTAREN) 1 % gel Apply 4 g topically 4 (four) times a day 200 g 01/07/20 25 026 Active lisinopril-hydr oCHLOROthiazide (ZESTORETIC) 20-25 mg per tabletIndicatio ns:hypertension Take 2 tablets by mouth daily 60 tablet 01/10/20 25 026 Active terazosin (HYTRIN) 5 mg capsuleIndicati ons:Primary hypertension,Be nign prostatic hyperplasia with nocturia Take 1 capsule (5 mg total) by mouth nightly 90 capsule 01/10/20 026 Active atenoloL (TENORMIN) 25 mg tabletIndicatio [...] by mouth daily 90 tablet 2 11/11/19 025 Discontinued(R eorder) zolpidem CR (AMBIEN CR) 12.5 mg CR tabletIndicatio ns:Insomnia Take 1 tablet (12.5 mg total) by mouth nightly as needed for sleep 30 tablet 3 12/31/19 025 Discontinued(R eorder) traMADoL (ULTRAM) 50 mg tabletIndicatio ns:Chronic midline low back pain without sciatica Take 1-2 tablets (50-100 mg total) by mouth every 8 (eight) hours as needed for pain 60 tablet 12/31/19 025 Discontinued Active Problems Problem Noted Date [...] 1:13 PM CDT): Small c:d. Pre-treatment iop: . S/p SLT. IOP great today off drops. No loss on OCT. CTM off drops. F/u annually. Assessment & Plan (12/30/2019 11:30 AM BEEF GRADER): Small CD ratio - risc at risk. [...] aids Nuclear sclerotic cataract 11/15/2016 0 04/09/2019 Immunizations Immunization Administration Dates Next Due DT [...] Unspecified 11/27/2005 Tdap 12/21/2023,08/12/2014 ZOSTER Recombinant 06/17/2019,03/29/2018 Social History Tobacco Use Types Packs/Day Years [...] on file Legal Sex Male 3:29 AM BEEF GRADER Gender Identity Not on file Sexual Orientation Not on file Occupation Industry Job Start Date Job End Date Retired Not on file Not on file Not on file Last Filed Vital Signs Vital Sign Reading [...] 01/27/2025 2:04 PM CDT Plan of Treatment Not on file Medical Devices Implanted Type Area Allergist/Immunologist Physician Device Identifier Shelf Expiration Date Model / Serial / Lot [employer] Carvalho 5fr 9cm Pancreatic Stent [id number] - [id number] Implanted:Qty: 1 on 01/27/2025 by Doug Maldonado MD at [facility] N/A: Pancreas [employer] 08/29/2029 [id number] / / [id number] Conmed Lashanda Viabil 8mm X 4cm Shortwire [id number] - [id number] - [id number] Implanted:Qty: 1 on 01/27/2025 by Doug Maldonado MD at [facility] N/A: Bile Duct [employer] 09/29/2027 [id number] / [id number] / Procedures Procedure Name Priority Date/Time Associated [...] hypogonadism TOTAL TESTOSTERONE Routine 11/11/2024 11:17 AM BEEF GRADER Male hypogonadism COMPREHENSIVE METABOLIC PANEL Routine 11/11/2024 11:17 AM BEEF GRADER Chronic fatigue CBC WITH AUTO DIFFERENTIAL Routine 11/11/2024 11:17 AM BEEF GRADER Chronic fatigue Male hypogonadism from Last 3 Months Results * FL ERCP Biliary and Pancreatic (01/27/2025 3:01 PM CDT) Narrative [facility] - 01/27/2025 3:01 PM CDT The images from this study are not interpreted by Radiology. Please refer to the physician's procedure / OR operative note. us Doug Maldonado MD IMG FLUOROSCOPY PROCEDURES Final Result [facility] * ERCP (01/27/2025 1:54 PM CDT) Anatomical Region Laterality Modality Other Narrative Procedure Note Doug Maldonado MD - 01/27/2025 1:54 PM CDT [facility] END[facility] Patient Name: Jose Armando Filter Procedure Date: 01/27/2025 1:54 PM Date of : 1935 Admit Type: Outpatient Age: 89 Gender: Male Attending MD: Doug Maldonado M.D. Room: [facility] ENDOSCOPY ROOM 1 Note Status: Finalized [...] were discussed and informed consentwas obtained. The [id number] Duodenoscope wasintroduced through the mouth, and used to inject contrast into and used to inject contrast into the bile duct. The ERCP was accomplished without difficulty. Thepatient tolerated the procedure well. Findings: The orchard sprayer film was normal. The esophagus was successfully [...] (ABNORMAL) PSA screen (01/09/2025 2:39 PM CDT) PSA, Total 9.7(HH) 0.0 - 4.0 ng/mL [facility] Comment:notified provider Blood 01/09/2025 2:39 PM CDT 01/09/2025 2:56 PM CDT Patricio Yeboah MD LAB BLOOD ORDERABLES Final Result [facility] [address] [place] [address] * (ABNORMAL) CBC with auto differential (01/09/2025 2:39 PM CDT) WBC 8.6 3.5 - 10.0 K/uL [facility] RBC 3.83(L) 4.60 - 6.20 M/uL [facility] Hemoglobin 11.7(L) 13.9 - 17.7 g/dL [facility] Hematocrit 33.0(L) 35.0 - 55.0 % [facility] MCV 86.1 75.0 - 100.0 fL [facility] MCH 30.70 25.00 - 35.00 pg [facility] MCHC 35.60 31.00 - 38.00 g/dL [facility] RDW 14.0 11.0 - 16.0 % [facility] Platelets 275 140 - 400 K/uL [facility] MPV 8.5 8.0 - 11.0 fL [facility] Granulocyte, Absolute 6.5 1.2 - 8.0 K/uL [facility] Lymphocyte, Absolute 1.6 0.5 - 5.0 K/uL [facility] Monocyte, Absolute 0.5 0.1 - 1.5 K/uL [facility] Granulocyte, Percentage 75.5 35.0 - 80.0 % [facility] Lymphocyte, Percentage 19.2 15.0 - 50.0 % [facility] Monocyte, Percentage 5.3 2.0 - 15.0 % [facility] Blood 01/09/2025 2:39 PM CDT 01/09/2025 2:56 PM CDT Patricio Yeboah MD LAB BLOOD ORDERABLES Final Result Performing Organization Address City/[facility] Co de Phone Number [facility] [address] [place] [address] * Total testosterone (01/09/2025 2:39 PM CDT) Testosterone 335.5 193.0 - 740.0 ng/dL [facility] Blood 01/09/2025 2:39 PM CDT 01/09/2025 2:56 PM CDT Patricio Yeboah MD LAB BLOOD ORDERABLES Final Result Performing Organization Address City/[facility] Co de Phone Number [facility] [address] [place] [address] * (ABNORMAL) Comprehensive metabolic panel (01/09/2025 2:39 PM CDT) Pathologist [facility] Glucose 128 74 - 200 mg/dL [facility] BUN 39(H) 18 - 23 mg/dL [facility] Creatinine 2.0(H) 0.7 - 1.3 mg/dL [facility] eGFR 32 mL/min/1.7 3m2 [facility] BUN/Creat Ratio 20 Ratio [facility] Bilirubin, Total 1.0 0.0 - 1.2 mg/dL [facility] AST (SGOT) 64(H) 0 - 40 U/L [facility] ALT (SGPT) 53(H) 10 - 50 U/L [facility] Alkaline phosphatase 339(H) 40 - 129 U/L [facility] Calcium 8.6(L) 8.8 - 10.2 mg/dL [facility] Sodium 135 135 - 145 mEq/L [facility] Potassium 4.4 3.5 - 5.1 mEq/L [facility] Chloride 102 98 - 107 mEq/L [facility] CO2 22.2 22.0 - 32.0 mEq/L [facility] Anion Gap 11 3 - 12 mEq/L [facility] Total Protein 6.6 6.0 - 8.1 g/dL [facility] Albumin 3.7 3.5 - 5.2 g/dL [facility] Globulin 2.9 g/dL [facility] Albumin/Globulin 1.3 Ratio [facility] Blood 01/09/2025 2:39 PM CDT 01/09/2025 2:56 PM CDT Patricio Yeboah MD LAB BLOOD ORDERABLES Final Result [facility] [address] [place] [address] * CBC with auto differential (11/11/2024 11:17 AM BEEF GRADER) Pathologist [facility] WBC 10.0 3.5 - 10.0 K/uL [facility] RBC 5.13 4.60 - 6.20 M/uL [facility] Hemoglobin 15.3 13.9 - 17.7 g/dL [facility] Hematocrit 44.1 35.0 - 55.0 % [facility] MCV 86.0 75.0 - 100.0 fL [facility] MCH 29.80 25.00 - 35.00 pg [facility] MCHC 34.70 31.00 - 38.00 g/dL [facility] RDW 13.8 11.0 - 16.0 % [facility] Platelets 223 140 - 400 K/uL [facility] MPV 9.3 8.0 - 11.0 fL [facility] Granulocyte, Absolute 7.7 1.2 - 8.0 K/uL [facility] Lymphocyte, Absolute 1.7 0.5 - 5.0 K/uL [facility] Monocyte, Absolute 0.6 0.1 - 1.5 K/uL [facility] Granulocyte, Percentage 77.7 35.0 - 80.0 % [facility] Lymphocyte, Percentage 17.1 15.0 - 50.0 % [facility] Monocyte, Percentage 5.2 2.0 - 15.0 % [facility] Blood 11/11/2024 11:1 7 AM BEEF GRADER 11/11/2024 11:29 AM BEEF GRADER Patricio Yeboah MD LAB BLOOD ORDERABLES Final Result Performing Organization Address City/[facility] Co de Phone Number [facility] [address] [place] [address] * Total testosterone (11/11/2024 11:17 AM BEEF GRADER) Testosterone 278.8 193.0 - 740.0 ng/dL [facility] Blood 11/11/2024 11:1 7 AM BEEF GRADER 11/11/2024 11:29 AM BEEF GRADER Patricio Yeboah MD LAB BLOOD ORDERABLES Final Result Performing Organization Address [facility] Co de Phone Number [facility] [address] [place] [address] * (ABNORMAL) Comprehensive metabolic panel (11/11/2024 11:17 AM BEEF GRADER) Glucose 106 74 - 200 mg/dL [facility] BUN 40(H) 18 - 23 mg/dL [facility] Creatinine 2.3(H) 0.7 - 1.3 mg/dL [facility] eGFR 27 mL/min/1.7 3m2 [facility] BUN/Creat Ratio 18 Ratio [facility] Bilirubin, Total 0.2 0.0 - 1.2 mg/dL [facility] AST (SGOT) 21 0 - 40 U/L [facility] ALT (SGPT) 18 10 - 50 U/L [facility] Alkaline phosphatase 94 40 - 129 U/L [facility] Calcium 9.3 8.8 - 10.2 mg/dL [facility] Sodium 139 135 - 145 mEq/L [facility] Potassium 4.4 3.5 - 5.1 mEq/L [facility] Chloride 105 98 - 107 mEq/L [facility] CO2 24.8 22.0 - 32.0 mEq/L [facility] Anion Gap 9 3 - 12 mEq/L [facility] Total Protein 7.0 6.0 - 8.1 g/dL [facility] Albumin 4.1 3.5 - 5.2 g/dL [facility] Globulin 2.9 g/dL [facility] Albumin/Globulin 1.4 Ratio [facility] Blood 11/11/2024 11:1 7 AM BEEF GRADER 11/11/2024 11:29 AM BEEF GRADER Patricio Yeboah MD LAB BLOOD ORDERABLES Final Result Performing Organization Address City/State/[facility] de Phone Number [facility] [address] [place] [address] from Last 3 Months Insurance [facility] MEDICARE ADVANTAGE [facility] Address: [facility] [address] [place] [address] [facility] MEDICARE ADVANTAGE MEDICARE [facility] Address[facility] [id number] [place] [phone] COMMERCIAL GENERIC [facility] MEDICARE ADVANTAGE Care Teams Associate Accountant Relationship Specialty Start Date End Date Patricio Yeboah MD [address] [place] [address] PCP - General 12/11/16
--- OUTSIDE RECORDS SUMMARY | 2025-02-06 15:46 | XMS_ITS | Encounter Summary ---
Author Organization [facility] Address [address] [place] [address] Phone Care Team Providers Care Car Conditioner Name Role Phone Patricio Yeboah MD Primary Care Provider +1- [phone] Reason for Visit * Reason Onset Date Comments GI call back 02/06/2025 Encounter Details Date Type Department Care Team (Late st Contact Info) Description 02/06/2025 Telephone [facility] Gastroenterology [address] [place] [address] Medical Office Building [address], [address] [place] [address] Vaishali Nowak RN GI call back Social History Tobacco Use Types Packs/Day Years [...] on file 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 Hest[place] that Jose Armando has been going downhill the last couple of day and he fell out of bed this morning I advised that they should call an ambulance immediately for assistance as Adrian states the patient hasn't been cognitively at baseline today and hard to rouse. I called the non-emergency line of the [place] police dept and they stated an ambulance is already en route to the residence. documented in this encounter Plan of Treatment Not on file documented as of this encounter Visit Diagnoses Not on filedocumented in this encounter Care Teams Car Conditioner Relationship Specialty Start Date End Date Patricio Yeboah MD [address] [place] [address] PCP - General 12/11/16 documented as of this encounter
[2025-02-06 16:04] LABS: Alveolar/Arterial O2 Gradient 41.9 mmHg; Base Excess ABG -4.7 mEq/l (+/-2.0); Fractional Inspired Oxygen 21 %; HCO3 ABG 19.4 mEq/l (22.0-26.0); Oxygen Content ABG 15.7 %vol (16.0-22.0); Oxygen Saturation ABG 93.7 % (95.0-100.0); Oxyhemoglobin 92.7 % THb (90.0-100.0); PO2 ABG 68.3 mmHg (80.0-100.0); PO2 FiO2 Ratio Arterial Blood 3.25 %; pH ABG 7.388 (7.350-7.450)
[2025-02-06 16:05] LABS: Device ROOM AIR; Modified Allen's Test Pass; Site Drawn LEFT RADIAL
[2025-02-06 16:08] LABS: Acetaminophen < 10 ug/mL (10-30); Ethanol < 10 mg/dL (<10); Salicylate < 1.0 mg/dL (2-20)
[2025-02-06 16:09] LABS: Creatine Kinase 94 U/L (55-170); Lipase 109 U/L (23-300); Magnesium 2.4 mg/dL (1.6-2.3); Phosphorus 4.7 mg/dL (2.5-4.5)
[2025-02-06 16:21] LABS: NT Pro B Type Natriuretic Pept 2510 pg/mL (19.9-100); Troponin I < 0.012 ng/mL (0.000-0.034)
[2025-02-06 16:30] LABS: Influenza A QL RT-PCR Negative (Negative); Influenza B QL RT-PCR Negative (Negative); RSV RNA, RT-PCR Negative (Negative); SARS-CoV-2 RNA PCR Negative (Negative)
[2025-02-06 17:44] LABS: Amphetamine Screen Urine Negative (Negative); Barbiturate Screen Urine Negative (Negative); Benzodiazepines Screen Urine Negative (Negative); Cannabinoid Screen Urine Negative (Negative); Cocaine Screen Urine Negative (Negative); Methadone Screen Urine Negative (Negative); Opiate Screen Urine Negative (Negative); Phencyclidine Screen Urine Negative (Negative)
[2025-02-06] MEDS: LIDOCAINE 2% GEL UROJET 10 ML PKG (18:10)
[2025-02-06 18:36] LABS: Thyroid Stimulating Hormone Reflex 0.867 uIU/mL (0.465-4.68)
--- NOTE | 2025-02-06 18:42 | ED_ITS ---
HPI - General Adult General Chief complaint: Fall Stated complaint: AMS Time Seen by Provider: 02/06/25 15:18 History of Present Illness HPI narrative: This is an 89-year-old male presenting for altered mental status. On arrival patient is somnolent and cannot provide any meaningful information. His roommates heard bedside. They said they had a urologic procedure 2 weeks ago. He had been doing well afterwards but then starting several days ago he started to become more weak. He developed swelling of his legs was having difficulty getting around. When they woke him up for breakfast this morning he did not come upstairs and when they went back down to cm they found him laying on the floor. They called EMS and while he was arousable he would quickly fall back asleep. They deny any history drug or alcohol use. Unknown what urologic procedure the patient had but his daughter believes it was performed by a Dr. Maldonado at [facility]. Related Data Allergies Allergy/AdvReac Type Severity Reaction Status Date / Time No Known Allergies Allergy Verified 02/06/25 14:58 Exam 2 Narrative: APPEARANCE: Somnolent, responsive to pain Head: atraumatic. EYES: Pinpoint pupils NOSE: Atraumatic NECK: Trachea midline RESPIRATORY: No increased rate of breathing CTAB CARDIOVASCULAR: RRR, mild edema lower extremities ABDOMINAL: Non-distended, soft nontender MUSCULOSKELETAl: No obvious deformities NEURO: Somnolent, Moving 4/4 extremities SKIN:: Warm, dry. Normal color PSYCHIATRIC: Somnolent Course Vital Signs Vital signs: Vital Signs Temperature 97.6 F 02/06/25 14:49 Pulse Rate 65 02/06/25 14:49 Respiratory Rate 20 02/06/25 14:49 Blood Pressure 131/59 L 02/06/25 14:49 Pulse Oximetry 99 02/06/25 14:49 Oxygen Delivery Room Air 02/06/25 14:49 Temperature 97.6 F 02/06/25 14:49 Pulse Rate 53 L 02/06/25 17:17 Respiratory Rate 30 H 02/06/25 17:17 Blood Pressure 146/74 H 02/06/25 17:17 Pulse Oximetry 92 02/06/25 17:17 Oxygen Delivery Room Air 02/06/25 14:49 Medical Decision Making [facility] Narrative Medical decision making narrative: -Course: 89-year-old male presenting after being found down and unresponsive. Vital signs significant for bradycardia. Blood pressure stable. Patient had pinpoint pupils on arrival and was given 0.4 of Narcan without significant effect. Broad workup obtained. CT head/cspine unremarkable. CTA chest abdomen pelvis with multiple findings. Patient has cardiomegaly with dependent atelectasis in both lungs. Edematous wall thickening of gallbladder which is likely due to congestive changes as opposed to acute cholecystitis. 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 Distended bladder. A Nichole has been placed to relieve the bladder obstruction. Urine is positive for infection. Patient started on ceftriaxone. Independent interpretation of studies: White count 10.1, hemoglobin 11.7 ABG showed 7.38/33/68.3/19.4 -hypoxic respiratory failure - placed on 2 L oxygen Metabolic panel significant for a BUN of 52 with creatinine of 2.72. No baseline available as he has never been in our hospital for. could be obstructive versus pre renal. Urine drug screen and alcohol level were negative. tox negative. Viral swabs negative. On re-evaluation the patient has started to wake up more. He has slurred speech although I spoke with his roommates and they stated he has spoken like that for 10 years. I was also concerned for left facial droop however the roommate said that is normal for him and is not a new finding. Full neurologic exam was performed he is moving all extremities appropriately with no focal neurologic deficits. CVA is less likely given he has been getting weaker over the last several days. Patient will be admitted to the hospital for further management of his urinary tract infection and altered mental status. Vital Signs Vital Signs: Vital Signs Temperature 97.6 F 02/06/25 14:49 Pulse Rate 65 02/06/25 14:49 Respiratory Rate 20 02/06/25 14:49 Blood Pressure 131/59 L 02/06/25 14:49 Pulse Oximetry 99 02/06/25 14:49 Oxygen Delivery Room Air 02/06/25 14:49 Temperature 97.6 F 02/06/25 14:49 Pulse Rate 53 L 02/06/25 17:17 Respiratory Rate 30 H 02/06/25 17:17 Blood Pressure 146/74 H 02/06/25 17:17 Pulse Oximetry 92 02/06/25 17:17 Oxygen Delivery Room Air 02/06/25 14:49 Lab Data 02/06/25 15:17 02/06/25 15:17 Labs: Lab Results 02/06/25 02/06/25 02/06/25 Range/Units 15:15 15:17 15:24 WBC 10.1 H (4.5-10.0) K/mm3 RBC 3.87 L (4.6-6.20) M/mm3 Hgb 11.7 L (14.0-18.0) g/dL Hct 35.3 L (42.0-52.0) % MCV 91.2 (80-100) fl MCH 30.2 (26-34) pg MCHC 33.1 (32-36) g/dl RDW 14.4 (11.5-14.5) % Plt Count 307 (150-375) k/mm3 MPV 9.9 (7.4-10.4) fl Immature Gran % (Auto) 0.3 (0-0.5) % Neut % (Auto) 72.0 (45.5-73.1) % Lymph % (Auto) 15.8 L (18.3-44.2) % [place] % (Auto) 10.9 H (2.6-8.5) % Eos % (Auto) 0.6 (0-4.4) % Baso % (Auto) 0.4 (0.2-1.2) % Lymph # (Auto) 1.59 (0.9-3.2) K/mm3 [place] # (Auto) 1.1 H (0.1-0.6) K/mm3 Eos # (Auto) 0.1 (0-0.3) K/mm3 Baso # (Auto) 0.0 (0.0-0.1) K/mm3 Abs Immat Gran (auto) 0.03 (0.00-0.031) K/mm3 Absolute Neuts (auto) 7.2 H (1.3-6.7) K/mm3 Absolute Nucleated RBC 0.000 (0.0-0.012) K/mm3 Nucleated RBC % 0.0 (0.0-0.2) % PT 14.6 (11.1-14.7) Seconds INR 1.1 APTT 35.0 (22.3-36.8) Seconds Sodium 137 (137-145) mmol/L Potassium 4.6 (3.4-5.0) mmol/L Chloride 105 (98-107) mmol/L Carbon Dioxide 21 L (22-30) mmol/L Anion Gap 11 (4-12) mmol/L BUN 52 H (9-20) mg/dL Creatinine 2.72 H (0.7-1.3) mg/dL Estim Creat Clear Calc 18 ml/min Estimated GFR 22 L (59 - ) Glucose 111 H (65-110) mg/dL POC Capillary Glucose 106 H (65-105) mg/dl Lactic Acid Calcium 8.8 (8.4-10.2) mg/dL Phosphorus 4.7 H (2.5-4.5) mg/dL Magnesium 2.4 H (1.6-2.3) mg/dL Total Bilirubin 0.7 (0.2-1.3) mg/dL AST 24 (17-59) U/L ALT 17 (6-50) U/L Alkaline Phosphatase 152 H (38-126) U/L Total Creatine Kinase 94 (55-170) U/L Troponin I < 0.012 (0.000-0.034) ng/mL NT-Pro-B Natriuret Pep 2510 H (19.9-100) pg/mL Total Protein 8.0 (6.3-8.2) g/dL Albumin 4.1 (3.5-5.1) g/dL Lipase 109 (23-300) U/L TSH (Reflex) 0.867 (0.465-4.68) uIU/mL Urine Color (Yellow) Urine Appearance (Clear) Urine pH (5.0-9.0) Ur Specific [place] (1.001-1.035) Urine Protein (Negative) mg/dL Urine Glucose (UA) (Negative) mg/dL Urine Ketones (Negative) mg/dL Ur Blood (Man) (Negative) Urine Nitrate (Negative) Urine Bilirubin (Negative) Urine Urobilinogen (<2.0) mg/dL Leukocyte Esterase Rfl (Negative) MAMIE/UL Urine RBC (0-2) /hpf Urine WBC (0-3) /hpf Ur Squamous Epith Cells (Few) /hpf Urine Bacteria /hpf Urine Casts Salicylates < 1.0 L (2-20) mg/dL Urine Opiates Screen (Negative) Urine Methadone Screen (Negative) Acetaminophen < 10 L (10-30) ug/mL Ur Barbiturates Screen (Negative) Ur Phencyclidine Scrn (Negative) Ur Amphetamine Screen (Negative) U Benzodiazepines Scrn (Negative) Urine Cocaine Screen (Negative) U Cannabinoids Screen (Negative) Ethyl Alcohol < 10 (<10) mg/dL Influenza A (RT-PCR) (Negative) Influenza B (RT-PCR) (Negative) RSV (RT-PCR) (Negative) SARS-CoV-2 RNA (RT-PCR) (Negative) 02/06/25 02/06/25 02/06/25 Range/Units 15:32 15:49 18:08 WBC (4.5-10.0) K/mm3 RBC (4.6-6.20) M/mm3 Hgb (14.0-18.0) g/dL Hct (42.0-52.0) % MCV (80-100) fl MCH (26-34) pg MCHC (32-36) g/dl RDW (11.5-14.5) % Plt Count (150-375) k/mm3 MPV (7.4-10.4) fl Immature Gran % (Auto) (0-0.5) % Neut % (Auto) (45.5-73.1) % Lymph % (Auto) (18.3-44.2) % [place] % (Auto) (2.6-8.5) % Eos % (Auto) (0-4.4) % Baso % (Auto) (0.2-1.2) % Lymph # (Auto) (0.9-3.2) K/mm3 [place] # (Auto) (0.1-0.6) K/mm3 Eos # (Auto) (0-0.3) K/mm3 Baso # (Auto) (0.0-0.1) K/mm3 Abs Immat Gran (auto) (0.00-0.031) K/mm3 Absolute Neuts (auto) (1.3-6.7) K/mm3 Absolute Nucleated RBC (0.0-0.012) K/mm3 Nucleated RBC % (0.0-0.2) % PT Pending (11.1-14.7) Seconds INR Pending APTT Pending (22.3-36.8) Seconds Sodium (137-145) mmol/L Potassium (3.4-5.0) mmol/L Chloride (98-107) mmol/L Carbon Dioxide (22-30) mmol/L Anion Gap (4-12) mmol/L BUN (9-20) mg/dL Creatinine (0.7-1.3) mg/dL Estim Creat Clear Calc ml/min Estimated GFR (59 - ) Glucose (65-110) mg/dL POC Capillary Glucose (65-105) mg/dl Lactic Acid Pending Calcium (8.4-10.2) mg/dL Phosphorus (2.5-4.5) mg/dL Magnesium (1.6-2.3) mg/dL Total Bilirubin (0.2-1.3) mg/dL AST (17-59) U/L ALT (6-50) U/L Alkaline Phosphatase (38-126) U/L Total Creatine Kinase (55-170) U/L Troponin I Pending (0.000-0.034) ng/mL NT-Pro-B Natriuret Pep (19.9-100) pg/mL Total Protein (6.3-8.2) g/dL Albumin (3.5-5.1) g/dL Lipase (23-300) U/L TSH (Reflex) (0.465-4.68) uIU/mL Urine Color Yellow (Yellow) Urine Appearance Cloudy H (Clear) Urine pH 5.5 (5.0-9.0) Ur Specific [place] 1.015 (1.001-1.035) Urine Protein 1+ H (Negative) mg/dL Urine Glucose (UA) Negative (Negative) mg/dL Urine Ketones Negative (Negative) mg/dL Ur Blood (Man) 2+ H (Negative) Urine Nitrate Negative (Negative) Urine Bilirubin Negative (Negative) Urine Urobilinogen 0.2 (<2.0) mg/dL Leukocyte Esterase Rfl 3+ H (Negative) MAMIE/UL Urine RBC 21-50 H (0-2) /hpf Urine WBC >100 H (0-3) /hpf Ur Squamous Epith Cells None seen (Few) /hpf Urine Bacteria 4+ H /hpf Urine Casts 3-5 Salicylates (2-20) mg/dL Urine Opiates Screen Negative (Negative) Urine Methadone Screen Negative (Negative) Acetaminophen (10-30) ug/mL Ur Barbiturates Screen Negative (Negative) Ur Phencyclidine Scrn Negative (Negative) Ur Amphetamine Screen Negative (Negative) U Benzodiazepines Scrn Negative (Negative) Urine Cocaine Screen Negative (Negative) U Cannabinoids Screen Negative (Negative) Ethyl Alcohol (<10) mg/dL Influenza A (RT-PCR) Negative (Negative) Influenza B (RT-PCR) Negative (Negative) RSV (RT-PCR) Negative (Negative) SARS-CoV-2 RNA (RT-PCR) Negative (Negative) ABG Data ABG results: 02/06/25 15:58 Puncture Site Left radial ABG pH 7.388 ABG pCO2 33.0 L ABG pO2 68.3 L ABG PO2/FiO2 Ratio 3.25 ABG HCO3 19.4 L ABG O2 Saturation 93.7 L ABG O2 Content 15.7 L ABG Base Excess -4.7 A-a Gradient 41.9 Oxyhemoglobin 92.7 Total Hemoglobin 12.0 O2 Delivery Device Room air O2 Liters/Min Not Reportable FiO2 21 Discharge Plan Discharge Clinical Impression: AMS (altered mental status), Acute kidney injury, Acute UTI Patient Disposition: Still a Patient Condition: Guarded Prognosis Patient Language: Cuban Follow-up/Referrals: FARZANA,ANNETTE Rich M.D. [Primary Care Provider] -
[2025-02-06 18:56] LABS: Troponin I < 0.012 ng/mL (0.000-0.034)
[2025-02-06 19:06] LABS: Lactic Acid Reflex 1.4 mmol/L (0.7-2.0)
--- NOTE | 2025-02-06 19:44 | PM.IMHP ---
H&P: HPI History of Present Illness Date/Time: 02/06/25 19:44 Chief Complaint: 1. Loss of consciousness Narrative: Jose Armando Greenberg is an 89-year-old male with a mHx significant for BPH EMR, the for the [place] for his medical conditions and recently underwent a urologic procedure (unable to give information); was believed to have been discharged on opiates for pain control which has been taking religiously nose prior to admission by roommate is said to have become deeply somnolence and difficult to arouse. With no known modifying factors to his symptoms, it came to be associated with anorexia, and a restriction with ADLs. There were no mention of fevers, chills, dysuria, hematuria, dizziness or localized pain concerns. Unable to obtain information about his smoking history, alcohol dependence history or recreational/illicit drug use Work-up findings VS demonstrate bradycardia; worse on deep sleep WBC 10, Hb 11, MCV 91, PLT 307 ABG: pH 7.3; pCO2 33; PO2 68 Na 130 7p; K 4.6; Cl 105; CO2 21; HGB 11; BUN 652; CR 2.72; GFR 22 Lactic acid 1.4; phosphorus 4.7; Mg 2.4; AST 24; ALT 17; ALP 152; c. bilirubin 0.7 Troponin <0.012; BNP 2510 ECG: Sinus bradycardia; 1AVB; PVC; RBBB. no evidence of ischemia UDS: Unremarkable Influenza A/B, RSV, COVID-19: Negative CT head: No acute findings CTA chest, abdomen, Pelvis: 1. Dependent atelectasis in both lungs. No aortic aneurysm, dissection or other acute cardiopulmonary disease. 2. Cardia megaly. 3. Possible small sliding-type hiatal hernia. 4. Pneumobilia likely related to a distal biliary stent. 5. Edematous wall thickening of the gallbladder but without dilation or pericholecystic inflammatory stranding to suggest acute cholecystitis is more likely related to either chronic cholecystitis, heart failure, renal failure or other generalized edema forming states. 6. 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 7. 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 8. Distended bladder which could be due to chronic outlet obstruction from the enlarged prostate. CT cervical spine: No acute osseous abnormality cervical spine. Multilevel degenerative disc disease. Jose Armando Greenberg will be admitted, evaluated and managed for urinary retention and increased somnolence Review of Systems Review of Systems: ROS unobtainable: Yes unobtainable due to medical condition and unobtainable due to mental status Meds Home Medications and Allergies Allergies Allergy/AdvReac Type Severity Reaction Status Date / Time No Known Allergies Allergy Verified 02/06/25 14:58 Vital Signs Vital Signs - 24 hr 02/06/25 14:49 02/06/25 15:03 02/06/25 15:15 Temperature 97.6 F Pulse Rate 65 58 L 53 L Respiratory Rate 20 21 H 19 Blood Pressure 131/59 L Pulse Oximetry 99 95 92 Oxygen Delivery Room Air 02/06/25 15:21 02/06/25 15:31 02/06/25 15:32 Temperature Pulse Rate 63 66 73 Respiratory Rate 18 15 16 Blood Pressure 142/58 H 133/69 Pulse Oximetry 95 Oxygen Delivery 02/06/25 16:34 02/06/25 16:41 02/06/25 17:06 Temperature Pulse Rate 66 70 79 Respiratory Rate 15 16 15 Blood Pressure 149/65 H 139/62 100/83 Pulse Oximetry 93 95 96 Oxygen Delivery 02/06/25 17:17 02/06/25 17:45 02/06/25 18:30 Temperature Pulse Rate 53 L 75 49 L Respiratory Rate 30 H 18 20 Blood Pressure 146/74 H 160/68 H Pulse Oximetry 92 96 91 Oxygen Delivery 02/06/25 18:45 02/06/25 18:46 02/06/25 19:00 Temperature Pulse Rate 49 L 43 L 69 Respiratory Rate 16 16 20 Blood Pressure 136/55 L 128/110 H Pulse Oximetry 91 90 97 Oxygen Delivery 02/06/25 19:01 02/06/25 19:22 02/06/25 19:43 Temperature Pulse Rate 65 50 L 42 L Respiratory Rate 15 14 15 Blood Pressure 145/41 H Pulse Oximetry 98 98 96 Oxygen Delivery Exam Const: General: no acute distress HENMT: Face/Nose/Sinus: Normal nares present Mouth: Yes dry mucous membranes Eyes: Sclera: sclerae normal Pupils: Equal, round and reactive pupils present EOM: EOMs intact bilaterally Cardio: Rate: bradycardic Rhythm: abnormal rhythm Urinary Catheter: Urinary Catheter: patent and draining and urine clear Skin: General skin exam: normal color Neuro: Speech: No normal speech (Garbled speech) Psych: Mental Status: mental status grossly abnormal Affect: No normal affect H&P: Results Labs Labs: Short CBC 02/06/25 Range/Units 15:17 WBC 10.1 H (4.5-10.0) K/mm3 Hgb 11.7 L (14.0-18.0) g/dL Hct 35.3 L (42.0-52.0) % Plt Count 307 (150-375) k/mm3 BMP 02/06/25 15:17 Sodium 137 Potassium 4.6 Chloride 105 Carbon Dioxide 21 L BUN 52 H Creatinine 2.72 H Glucose 111 H Calcium 8.8 Cardiac Enzymes 02/06/25 02/06/25 Range/Units 15:15 18:08 Total Creatine Kinase 94 (55-170) U/L Troponin I < 0.012 < 0.012 (0.000-0.034) ng/mL Liver Function 02/06/25 Range/Units 15:17 Total Bilirubin 0.7 (0.2-1.3) mg/dL AST 24 (17-59) U/L ALT 17 (6-50) U/L Alkaline Phosphatase 152 H (38-126) U/L Albumin 4.1 (3.5-5.1) g/dL Urine 02/06/25 Range/Units 15:32 Urine Color Yellow (Yellow) Urine Appearance Cloudy H (Clear) Urine pH 5.5 (5.0-9.0) Ur Specific [place] 1.015 (1.001-1.035) Urine Protein 1+ H (Negative) mg/dL Urine Glucose (UA) Negative (Negative) mg/dL Assessment and Plan Assessment and plan (1) Acute metabolic encephalopathy: Code(s): G93.41 - Metabolic encephalopathy Status: Acute (2) Urinary retention: Code(s): R33.9 - Retention of urine, unspecified Status: Acute (3) Bradycardia: Code(s): R00.1 - Bradycardia, unspecified Status: Acute (4) Heart block AV first degree: Code(s): I44.0 - Atrioventricular block, first degree Status: Acute Plan Acute and principal conditions 1. Acute encephalopathy; likely metabolic 2. UTI 3. Urinary retention 4. Arrhythmias; Bradycardia. 1AVB 5. Elevated BNP; probable CHF, unknown EF 6. Hypermagnesemia; Hyperphosphatemia 7. Acute renal insufficiency; probably post-renal. Rx: A. Gentle hydration; IV Ceftriaxone B. Blood and urine cultures C. TTE; Telemetry monitoring; may need EPS involvement D. Monitor electrolytes; E. Falls and safety precautions F. Monitor renal function; avoid nephrotoxins Chronic and stable condition 1. Enlarged prostate; BPH Through medical history when he is more lucid Miscellaneous care 1. Code status. Full 2. Nutrition. Advance as tolerated 3. VTE prophylaxis. SCDs; [facility] Quality VTE Prophylaxis VTE prophylaxis: mechanical ordered and pharmacologic ordered Hospitalist [facility] Advance Care Plan I have confirmed that the patient's Advanced Care Plan is present, code status is documented, or surrogate decision maker is listed in patient medical record.: Yes Medication Reconciliation I have utilized all available resources to obtain, update and review the patients current medications (includes all prescriptions, OTC, herbals, cannabis, and nutritional supplements).: Yes The patient is not eligible for med reconciliation; the patient is in a emergent medical situation where delaying treatment would jeopardize the patients health.: Yes
--- NOTE | 2025-02-06 19:58 | PC.NURSE ---
RN notified that blue top hemolized. RN redraw complete.
[2025-02-06 20:13] LABS: INR 1.1; Prothrombin Time 14.3 Seconds (11.1-14.7)
[2025-02-06 20:15] LABS: Partial Thromboplastin Time 32.7 Seconds (22.3-36.8)
--- NOTE | 2025-02-06 21:44 | ADMGEN ---
This patient, Jose Armando Greenberg, was admitted to IMU Room 205-02 on 02/06/25 at 2110. Patient/family oriented to hospital policies and general routines including ID bracelet, bed and alarms, visiting hours, pain management, procedures, bathroom and other care routines, personal items, smoking policy, room service/diet, and visiting hours. Information on how to activate the Rapid Response Team has been discussed. Patient/Family are encouraged to report perceived risks to care and to ask questions if they do not understand what they are told or what they should do.
[2025-02-07] VITALS (22 sets, daily range): BP systolic 121–145; BP diastolic 43–98; PULSE 37–89; RESP 17–22; TEMP 36.4–37.4; O2SAT 94–100
--- NOTE | 2025-02-07 | ECHO_ITS ---
Patient Info Name: Jose Armando Greenberg Age: 89 years : 1935 Gender: Male Ht: 69 in Wt: 173 lbs BSA: 1.96 m2 HR: 40 bpm BP: 121 / 98 mmHg Heart Rhythm: Atrial Fibrillation Technical Quality: Fair Exam Date: 02/07/2025 8:36 AM Exam Location: Echo Lab Patient Status: Inpatient Admit Date: 02/06/2025 Staff Ordering Physician: Adan Stallings MD Academic Affairs Manager: Nancy Lin RDCS Attending Provider: Adan Stallings MD Referring Physician: Haylie SPENCER; Exam Type: CA echo doppler color flow Study Info Indications - Elevated BNP Complete two-dimensional, color flow and Doppler transthoracic echocardiogram is performed. Summary 1. Complete two-dimensional, color flow and Doppler transthoracic echocardiogram is performed. 2. There is normal biventricular size and systolic function. 3. There were no significant valvular abnormalities. Left Ventricle Left ventricle is normal in size and systolic function. The left ventricular ejection fraction is visually estimated to be 65-70%. There are no regional wall motion abnormalities. Right Ventricle The right ventricle is normal in size and systolic function. Left Atria The left atrium is mildly dilated. Right Atria The right atrium is normal size. Atrial Septum The atrial septum appears visually intact. Aortic Valve The aortic valve is trileaflet and sclerotic but opens well. There is no aortic regurgitation. Pulmonic Valve The pulmonic valve is not well visualized. There is no color Doppler evidence of pulmonic valve regurgitation. Mitral Valve The mitral valve is opening well. There is no mitral regurgitation. Tricuspid Valve The tricuspid valve is normal. There is trace tricuspid regurgitation. Pericardium/Pleural Pericardium is normal in appearance with no evidence for significant pericardial effusion. Inferior Vena Cava Inferior vena cava is not well visualized. Aorta The aortic root at the level of the sinus of Valsalva measures 3.6 cm in diameter. Left Ventricular Outflow Tract Name Value Normal LVOT 2D LVOT Diameter 2.1 cm LVOT Doppler LVOT Peak Gradient 4 mmHg LVOT Mean Gradient 2 mmHg LVOT VTI 25 cm LVOT VTI/AV VTI Ratio 0.6 LVOT Stroke Volume 86 ml LVOT CO 3.1 l/min LVOT CI 1.6 l/min/m2 Pulmonic Valve Name Value Normal RVOT Doppler RVOT Peak Gradient 3 mmHg PV Doppler PV Peak Gradient 5 mmHg Mitral Valve Name Value Normal MV Doppler MV Decel Ford 948 cm/s2 MV PHT 42 ms MV Area (PHT) 5.3 cm2 4.0-5.0 MV Diastolic Function MV E Peak Velocity 137 cm/s MV A Peak Velocity 2 cm/s MV E/A 89.6 MV Decel Time 144 ms MV Annular TDI MV E/e' (Septal) 12.1 <=8.0 MV E/e' (Lateral) 13.2 <=8.0 MV E/e' (Average) 12.6 Tricuspid Valve Name Value Normal TV Regurgitation Doppler TR Peak Velocity 305 cm/s TR Peak Gradient 37 mmHg Aortic Valve Name Value Normal AV Doppler AV Peak Velocity 179 cm/s AV Peak Gradient 13 mmHg AV Mean Gradient 6 mmHg AV VTI 42 cm AV Area (Cont Eq VTI) 2.0 cm2 >=3.0 AV Area (Cont Eq Tremaine) 2.0 cm2 AV Regurgitation 2D LVOT Area 3.4 cm2 Ventricles Name Value Normal LV Dimensions 2D/MM IVS Diastolic Thickness (2D) 1.1 cm 0.6-1.0 LVID Diastole (2D) 5.4 cm 4.2-5.8 LVIW Diastolic Thickness (2D) 0.9 cm 0.6-1.0 LVID Systole (2D) 3.9 cm 2.5-4.0 LVOT Diameter 2.1 cm LV Mass (2D Cubed) 205.07 g 88.00-224.00 LV Mass Index (2D Cubed) 104 g/m2 49-115 Relative Wall Thickness (2D) 0.33 LV Fractional Shortening/Ejection Fraction 2D/MM LV Fractional Shortening (2D) 29 % 25-43 LV EF (2D Teicholz) 55 % 52-72 LV Diastolic Volume (4C MOD) 141 ml LV EF (4C MOD) 71 % LV Diastolic Volume (2C MOD) 161 ml LV EF (2C MOD) 70 % LV Diastolic Volume (BP MOD) 151 ml 62-150 LV Diastolic Volume Index (BP MOD) 77 ml/m2 34-74 LV Systolic Volume (BP MOD) 46 ml 21-61 LV Systolic Volume Index (BP MOD) 23 ml/m2 11-31 LV EF (BP MOD) 70 % 52-72 LV Diastolic Length (4C) 9.7 cm LV Systolic Length (4C) 7.1 cm LV Stroke Volume (4C MOD) 101 ml Atria Name Value Normal LA Dimensions LA Volume (4C A-L) 69 ml LA Volume (BP A-L) 77 ml RA Dimensions RA Area (4C) 15.8 cm2 <=18.0 Report Signatures
[2025-02-07 00:27] LABS: Ammonia 10 umol/L (9-30)
[2025-02-07] MEDS: SODIUM CHLORIDE 0.9% IV 1,000 ML 30 ML IV CONT (00:30)
[2025-02-07] MEDS: HEPARIN SODIUM 5,000 UNITS/ML VIAL 5000 UNITS SUB-Q ×3 (00:30→21:16)
[2025-02-07] MEDS: ACETAMINOPHEN 325 MG TABLET 650 MG PO ×3 (00:58→12:06)
[2025-02-07 05:01] LABS: Basophils Percent Auto 0.5 % (0.2-1.2); Eosinophils Absolute Auto 0.1 K/mm3 (0-0.3); Eosinophils Percent Auto 1.3 % (0-4.4); Hematocrit 37.5 % (42.0-52.0); Hemoglobin 12.3 g/dL (14.0-18.0); Immature Granulocyte Absolute 0.02 K/mm3 (0.00-0.031); Immature Granulocyte Percent A 0.2 % (0-0.5); Lymphocytes Percent Auto 14.9 % (18.3-44.2); Mean Corpuscular HGB Conc 32.8 g/dl (32-36); Mean Corpuscular Hemoglobin 29.8 pg (26-34); Mean Corpuscular Volume 90.8 fl (80-100); Mean Platelet Volume 10.1 fl (7.4-10.4); Monocytes Absolute Auto 0.9 K/mm3 (0.1-0.6); Monocytes Percent Auto 10.7 % (2.6-8.5); Neutrophils Absolute Auto 6.3 K/mm3 (1.3-6.7); Neutrophils Percent Auto 72.4 % (45.5-73.1); Platelet Count Result 317 k/mm3 (150-375); Red Blood Count 4.13 M/mm3 (4.6-6.20); Red Cell Distribution Width 14.5 % (11.5-14.5); White Blood Count 8.7 K/mm3 (4.5-10.0)
[2025-02-07 05:12] LABS: Alanine Aminotransferase 15 U/L (6-50); Albumin Level 3.8 g/dL (3.5-5.1); Alkaline Phosphatase 146 U/L (38-126); Anion Gap 14 mmol/L (4-12); Aspartate Amino Transferase 22 U/L (17-59); Bilirubin,Total 0.7 mg/dL (0.2-1.3); Blood Urea Nitrogen 43 mg/dL (9-20); Calcium 8.9 mg/dL (8.4-10.2); Carbon Dioxide 19 mmol/L (22-30); Chloride 107 mmol/L (98-107); Estimated CRCL calculation 21 ml/min; Estimated Glomerular Filt Rate 27; Glucose 85 mg/dL (65-110); Potassium 4.3 mmol/L (3.4-5.0); Sodium 140 mmol/L (137-145)
--- NOTE | 2025-02-07 08:01 | ECG_ITS ---
Test Date: 2025-02-07 09:44:25 Measurements Intervals [place] Rate: 44 P: -72 PA: 332 QRS: -10 QRSD: 154 T: 42 QT: 476 QTc: 411 Interpretive Statements SINUS RHYTHM WITH SLOW VENTRICULAR RESPONSE WITH SECOND DEGREE AV BLOCK, TYPE I (MOBITZ I) RIGHT BUNDLE BRANCH BLOCK BASELINE ARTIFACT- I, II, III, AVR, AVL, AVF ABNORMAL ECG Compared to ECG 02/06/2025 15:23:19 HEART RATE HAS DECREASED Electronically Signed On 02-07-2025 10:04:07 CDT by Frederick Fried D.O.
--- NOTE | 2025-02-07 13:41 | PM.IMPN ---
Progress Note: A&P Assessment and Plan (1) Acute metabolic encephalopathy: Code(s): G93.41 - Metabolic encephalopathy Status: Acute Assessment and Plan: Patient presents with altered mental status. CT brain showing no acute findings. CT cervical spine showing no acute osseous abnormalities. WBC essentially normal. ABG 7.39/33/68 on RA. TSH normal. Lactic normal. Ammonia negative. UDS negative. Alcohol, Acet and Salicylate level negative. COVID, Influenza and RSV PCR negative. UA consistent with UTI; Blood and Urine cultures collected. Rocephin started. Related to UTI and/or medications (narcotics, Ambien) and/or DAVIDSON. Mental status better. Monitor for now. Follow up on cultures. Check B12 levels. 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 EKG initially showing 1st degree AVB. Repeat EKG showing 2nd degree AVB Type I. Echo showing normal biventricular size and systolic fxn, EF 65-70% and no significant valvular disease. He was on atenolol on admission but this was stopped. No plans on resuming this. Cardiology consulted with consideration of PM if his bradycardia does not improve. 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 Distended bladder which could be due to chronic outlet obstruction from the enlarged prostate. Nichole placed for retention. Retention could be related to recent urologic procedure and/or recent narcotics. Cr was 2.7 on admission and now trending down since Nichole in place. Metabolic mild gap acidosis noted felt related to the DAVIDSON. Baseline Cr unknown but suspect some CKD given the renal atrophy. Good UOP. Follow UOP, electrolytes and renal fxn. Monitor closely since CALLI inhibitor started. Plan for voiding trial prior to discharge when he is more awake and alert. (4) Urinary retention: Code(s): R33.9 - Retention of urine, unspecified Status: Acute Assessment and Plan: As above (5) Acute UTI: Code(s): N39.0 - Urinary tract infection, site not specified Status: Acute Assessment and Plan: UA is consistent with UTI. UCx collected. Rocephin started. UCx pending. Follow up on UCx results. (6) Hypertension: Code(s): I10 - Essential (primary) hypertension Status: Acute Assessment and Plan: Patient's blood pressure was reviewed on 02/07 Blood pressure remains reasonably well controlled. BP may run higher to compensate for low heart rate. Continue to monitor (7) Thyroid nodule: Code(s): E04.1 - Nontoxic single thyroid nodule Status: Acute Assessment and Plan: CTA chest showing multinodular goiter with up to 3.6 cm mass in the left thyroid lobe. TSH normal. Plan for thyroid US as outpatient. (8) BPH (benign prostatic hyperplasia): Code(s): N40.0 - Benign prostatic hyperplasia without lower urinary tract symptoms Status: Acute Assessment and Plan: Stable. Terazosin on hold. Plan Code status - Full VTE prophylaxis - SCDs; TANA Subjective Date/time seen: 02/07/25 13:41 Interval history: 89yo male with BPH here for altered mental status. He had recently underwent a urological procedure and was sent home with opioids for pain control. He is more awake but still confused. he has family/friends in the room. No alcohol or illegal drug use. No hx of seizures. Noted that patient has had weakness in his legs for the past 3-4 days. Review of Systems Review of Systems: ROS unobtainable: Yes unobtainable due to mental status Exam Narrative: AF 97.9 143/43 64 20 94% ra Gen - NARD Chest - clear anteriorly and in the flanks, nml RR CV - bradycardia. Tele showing 2nd degree AVB Type I Abd - Soft, NT/ND, Positive BS - Nichole secured draining clear yellow urine Ext - No pedal edema Neuro - Alert and oriented to location ('[facility]') and nabil name. Diffusely weak but no focal weakness. SHETTY. Psych - Nml mood and affect Skin - Warm and dry Objective Data Vital Signs Vital Signs: Vital Signs - 24 hr 02/06/25 14:49 02/06/25 15:03 02/06/25 15:15 Temperature 97.6 F Pulse Rate 65 58 L 53 L Respiratory Rate 20 21 H 19 Blood Pressure 131/59 L Pulse Oximetry 99 95 92 Oxygen Delivery Room Air 02/06/25 15:21 02/06/25 15:31 02/06/25 15:32 Temperature Pulse Rate 63 66 73 Respiratory Rate 18 15 16 Blood Pressure 142/58 H 133/69 Pulse Oximetry 95 Oxygen Delivery 02/06/25 16:34 02/06/25 16:41 02/06/25 17:06 Temperature Pulse Rate 66 70 79 Respiratory Rate 15 16 15 Blood Pressure 149/65 H 139/62 100/83 Pulse Oximetry 93 95 96 Oxygen Delivery 02/06/25 17:17 02/06/25 17:45 02/06/25 18:30 Temperature Pulse Rate 53 L 75 49 L Respiratory Rate 30 H 18 20 Blood Pressure 146/74 H 160/68 H Pulse Oximetry 92 96 91 Oxygen Delivery 02/06/25 18:45 02/06/25 18:46 02/06/25 19:00 Temperature Pulse Rate 49 L 43 L 69 Respiratory Rate 16 16 20 Blood Pressure 136/55 L 128/110 H Pulse Oximetry 91 90 97 Oxygen Delivery 02/06/25 19:01 02/06/25 19:22 02/06/25 19:43 Temperature Pulse Rate 65 50 L 42 L Respiratory Rate 15 14 15 Blood Pressure 145/41 H Pulse Oximetry 98 98 96 Oxygen Delivery 02/06/25 20:07 02/06/25 20:15 02/06/25 20:16 Temperature Pulse Rate 42 L 35 L 42 L Respiratory Rate 16 13 17 Blood Pressure 139/43 L Pulse Oximetry 93 99 95 Oxygen Delivery 02/06/25 20:30 02/06/25 20:31 02/06/25 20:45 Temperature Pulse Rate 49 L 42 L 40 L Respiratory Rate 17 17 13 Blood Pressure 149/47 H Pulse Oximetry 94 94 98 Oxygen Delivery 02/06/25 20:46 02/06/25 20:47 02/06/25 21:02 Temperature 97.6 F Pulse Rate 42 L 43 L 54 L Respiratory Rate 16 17 18 Blood Pressure 154/42 H 146/45 H Pulse Oximetry 98 97 100 Oxygen Delivery 02/06/25 21:10 02/06/25 21:20 02/06/25 21:27 Temperature 97.7 F Pulse Rate 62 62 63 Respiratory Rate 18 18 Blood Pressure 144/61 H Pulse Oximetry 96 96 Oxygen Delivery Room Air 02/06/25 22:00 02/06/25 23:01 02/07/25 00:00 Temperature Pulse Rate 54 L 89 68 Respiratory Rate 17 Blood Pressure 130/54 L Pulse Oximetry 100 Oxygen Delivery 02/07/25 00:30 02/07/25 02:00 02/07/25 03:35 Temperature 98.4 F Pulse Rate 89 44 L 54 L Respiratory Rate 17 17 Blood Pressure 121/98 H Pulse Oximetry 100 100 Oxygen Delivery Room Air 02/07/25 04:00 02/07/25 04:30 02/07/25 06:00 Temperature Pulse Rate 46 L 81 37 L Respiratory Rate 18 Blood Pressure Pulse Oximetry 100 Oxygen Delivery Room Air 02/07/25 08:00 02/07/25 08:00 02/07/25 08:01 Temperature 99.3 F Pulse Rate 75 75 44 L Respiratory Rate 22 H Blood Pressure 135/54 L Pulse Oximetry 98 Oxygen Delivery Room Air 02/07/25 10:00 02/07/25 11:33 02/07/25 12:00 Temperature 97.9 F Pulse Rate 52 L 48 L 75 Respiratory Rate 20 Blood Pressure 143/43 H Pulse Oximetry 94 Oxygen Delivery Room Air 02/07/25 12:00 Temperature Pulse Rate 64 Respiratory Rate Blood Pressure Pulse Oximetry Oxygen Delivery Intake/Output Intake/Output: Intake & Output 02/04/25 02/05/25 02/06/25 02/07/25 23:59 23:59 23:59 23:59 Intake Total 50 360 Output Total 700 1200 Balance -650 -840 Meds/Results Medications: Active Medications Generic Name Dose Route Start Last Admin Trade Name Rcq PRN Reason Stop Dose Admin Acetaminophen 650 mg 02/06/25 19:43 02/07/25 12:06 Acetaminophen 325 Mg Tablet PO 650 mg Q4H PRN Administration Mild Pain (1-3) or Fever Bisacodyl 10 mg 02/06/25 19:43 Bisacodyl 10 Mg Suppository RECTAL ONCE PRN Constipation Heparin Sodium (Porcine) 5,000 units 02/06/25 21:00 02/07/25 00:30 Heparin Sodium 5,000 Units/Ml Vial SUB-Q 5,000 units Q12HR TANA Administration Ceftriaxone Sodium 1 gm in 50 mls @ 100 mls/hr 02/07/25 18:00 Rocephin 1 Gm/Ns 50 Ml IVPB Q24H TANA Sodium Chloride 1,000 mls @ 30 mls/hr 02/06/25 20:03 02/07/25 00:30 Normal Saline Iv IV CONT 02/07/25 20:02 30 mls/hr .Q24H STA Administration Naloxone HCl 0.1 mg 02/06/25 19:43 Naloxone Hcl 0.4 Mg/Ml Vial IV PUSH Q2M PRN Opiate Reversal Perflutren Lipid Microsphere 0 ml 02/06/25 19:49 Perflutren Lipid Microspheres 1.5 Ml Vial Diluted To 10 Ml Total Volume IV PUSH 02/09/25 19:49 ONCE PRN adequate visualization Protocol Prochlorperazine Edisylate 10 mg 02/06/25 19:43 Prochlorperazine Edisylate 10 Mg/2 Ml Vial IV PUSH Q6H PRN Nausea And Vomiting Radiology Results: ITS Impressions Head CT 02/06/25 16:43 IMPRESSION: No acute intracranial findings. Chest/Abdomen/Pelvis CTA 02/06/25 16:45 IMPRESSION: 1. Dependent atelectasis in both lungs. No aortic aneurysm, dissection or other acute cardiopulmonary disease. 2. Cardia megaly. 3. Possible small sliding-type hiatal hernia. 4. Pneumobilia likely related to a distal biliary stent. 5. Edematous wall thickening of the gallbladder but without dilation or pericholecystic inflammatory stranding to suggest acute cholecystitis is more likely related to either chronic cholecystitis, heart failure, renal failure or other generalized edema forming states. 6. 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 7. 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 8. Distended bladder which could be due to chronic outlet obstruction from the enlarged prostate. Cervical Spine CT 02/06/25 16:53 IMPRESSION: No acute osseous abnormality cervical spine. Multilevel degenerative disc disease. Postoperative changes. Labs Labs: Laboratory Results - last 24 hr 02/06/25 02/06/25 02/06/25 15:15 15:17 15:24 WBC 10.1 H RBC 3.87 L Hgb 11.7 L Hct 35.3 L MCV 91.2 MCH 30.2 MCHC 33.1 RDW 14.4 Plt Count 307 MPV 9.9 Immature Gran % (Auto) 0.3 Neut % (Auto) 72.0 Lymph % (Auto) 15.8 L [place] % (Auto) 10.9 H Eos % (Auto) 0.6 Baso % (Auto) 0.4 Lymph # (Auto) 1.59 [place] # (Auto) 1.1 H Eos # (Auto) 0.1 Baso # (Auto) 0.0 Abs Immat Gran (auto) 0.03 Absolute Neuts (auto) 7.2 H Absolute Nucleated RBC 0.000 Nucleated RBC % 0.0 PT 14.6 INR 1.1 APTT 35.0 Puncture Site ABG pH ABG pCO2 ABG pO2 ABG PO2/FiO2 Ratio ABG HCO3 ABG O2 Saturation ABG O2 Content ABG Base Excess A-a Gradient Oxyhemoglobin Total Hemoglobin O2 Delivery Device O2 Liters/Min FiO2 Sodium 137 Potassium 4.6 Chloride 105 Carbon Dioxide 21 L Anion Gap 11 BUN 52 H Creatinine 2.72 H Estim Creat Clear Calc 18 Estimated GFR 22 L Glucose 111 H POC Capillary Glucose 106 H Lactic Acid Calcium 8.8 Phosphorus 4.7 H Magnesium 2.4 H Total Bilirubin 0.7 AST 24 ALT 17 Alkaline Phosphatase 152 H Ammonia Total Creatine Kinase 94 Troponin I < 0.012 NT-Pro-B Natriuret Pep 2510 H Total Protein 8.0 Albumin 4.1 Lipase 109 TSH (Reflex) 0.867 Urine Color Urine Appearance Urine pH Ur Specific [place] Urine Protein Urine Glucose (UA) Urine Ketones Ur Blood (Man) Urine Nitrate Urine Bilirubin Urine Urobilinogen Leukocyte Esterase Rfl Urine RBC Urine WBC Ur Squamous Epith Cells Urine Bacteria Urine Casts Salicylates < 1.0 L Urine Opiates Screen Urine Methadone Screen Acetaminophen < 10 L Ur Barbiturates Screen Ur Phencyclidine Scrn Ur Amphetamine Screen U Benzodiazepines Scrn Urine Cocaine Screen U Cannabinoids Screen Ethyl Alcohol < 10 Influenza A (RT-PCR) Influenza B (RT-PCR) RSV (RT-PCR) SARS-CoV-2 RNA (RT-PCR) 02/06/25 02/06/25 02/06/25 15:32 15:49 15:58 WBC RBC Hgb Hct MCV MCH MCHC RDW Plt Count MPV Immature Gran % (Auto) Neut % (Auto) Lymph % (Auto) [place] % (Auto) Eos % (Auto) Baso % (Auto) Lymph # (Auto) [place] # (Auto) Eos # (Auto) Baso # (Auto) Abs Immat Gran (auto) Absolute Neuts (auto) Absolute Nucleated RBC Nucleated RBC % PT INR APTT Puncture Site Left radial ABG pH 7.388 ABG pCO2 33.0 L ABG pO2 68.3 L ABG PO2/FiO2 Ratio 3.25 ABG HCO3 19.4 L ABG O2 Saturation 93.7 L ABG O2 Content 15.7 L ABG Base Excess -4.7 A-a Gradient 41.9 Oxyhemoglobin 92.7 Total Hemoglobin 12.0 O2 Delivery Device Room air O2 Liters/Min Not Reportable FiO2 21 Sodium Potassium Chloride Carbon Dioxide Anion Gap BUN Creatinine Estim Creat Clear Calc Estimated GFR Glucose POC Capillary Glucose Lactic Acid Calcium Phosphorus Magnesium Total Bilirubin AST ALT Alkaline Phosphatase Ammonia Total Creatine Kinase Troponin I NT-Pro-B Natriuret Pep Total Protein Albumin Lipase TSH (Reflex) Urine Color Yellow Urine Appearance Cloudy H Urine pH 5.5 Ur Specific [place] 1.015 Urine Protein 1+ H Urine Glucose (UA) Negative Urine Ketones Negative Ur Blood (Man) 2+ H Urine Nitrate Negative Urine Bilirubin Negative Urine Urobilinogen 0.2 Leukocyte Esterase Rfl 3+ H Urine RBC 21-50 H Urine WBC >100 H Ur Squamous Epith Cells None seen Urine Bacteria 4+ H Urine Casts 3-5 Salicylates Urine Opiates Screen Negative Urine Methadone Screen Negative Acetaminophen Ur Barbiturates Screen Negative Ur Phencyclidine Scrn Negative Ur Amphetamine Screen Negative U Benzodiazepines Scrn Negative Urine Cocaine Screen Negative U Cannabinoids Screen Negative Ethyl Alcohol Influenza A (RT-PCR) Negative Influenza B (RT-PCR) Negative RSV (RT-PCR) Negative SARS-CoV-2 RNA (RT-PCR) Negative 02/06/25 02/06/25 02/07/25 18:08 19:57 00:11 WBC RBC Hgb Hct MCV MCH MCHC RDW Plt Count MPV Immature Gran % (Auto) Neut % (Auto) Lymph % (Auto) [place] % (Auto) Eos % (Auto) Baso % (Auto) Lymph # (Auto) [place] # (Auto) Eos # (Auto) Baso # (Auto) Abs Immat Gran (auto) Absolute Neuts (auto) Absolute Nucleated RBC Nucleated RBC % PT 14.3 INR 1.1 APTT 32.7 Puncture Site ABG pH ABG pCO2 ABG pO2 ABG PO2/FiO2 Ratio ABG HCO3 ABG O2 Saturation ABG O2 Content ABG Base Excess A-a Gradient Oxyhemoglobin Total Hemoglobin O2 Delivery Device O2 Liters/Min FiO2 Sodium Potassium Chloride Carbon Dioxide Anion Gap BUN Creatinine Estim Creat Clear Calc Estimated GFR Glucose POC Capillary Glucose Lactic Acid 1.4 Calcium Phosphorus Magnesium Total Bilirubin AST ALT Alkaline Phosphatase Ammonia 10 Total Creatine Kinase Troponin I < 0.012 NT-Pro-B Natriuret Pep Total Protein Albumin Lipase TSH (Reflex) Urine Color Urine Appearance Urine pH Ur Specific [place] Urine Protein Urine Glucose (UA) Urine Ketones Ur Blood (Man) Urine Nitrate Urine Bilirubin Urine Urobilinogen Leukocyte Esterase Rfl Urine RBC Urine WBC Ur Squamous Epith Cells Urine Bacteria Urine Casts Salicylates Urine Opiates Screen Urine Methadone Screen Acetaminophen Ur Barbiturates Screen Ur Phencyclidine Scrn Ur Amphetamine Screen U Benzodiazepines Scrn Urine Cocaine Screen U Cannabinoids Screen Ethyl Alcohol Influenza A (RT-PCR) Influenza B (RT-PCR) RSV (RT-PCR) SARS-CoV-2 RNA (RT-PCR) 02/07/25 04:45 WBC 8.7 RBC 4.13 L Hgb 12.3 L Hct 37.5 L MCV 90.8 MCH 29.8 MCHC 32.8 RDW 14.5 Plt Count 317 MPV 10.1 Immature Gran % (Auto) 0.2 Neut % (Auto) 72.4 Lymph % (Auto) 14.9 L [place] % (Auto) 10.7 H Eos % (Auto) 1.3 Baso % (Auto) 0.5 Lymph # (Auto) 1.30 [place] # (Auto) 0.9 H Eos # (Auto) 0.1 Baso # (Auto) 0.0 Abs Immat Gran (auto) 0.02 Absolute Neuts (auto) 6.3 Absolute Nucleated RBC 0.000 Nucleated RBC % 0.0 PT INR APTT Puncture Site ABG pH ABG pCO2 ABG pO2 ABG PO2/FiO2 Ratio ABG HCO3 ABG O2 Saturation ABG O2 Content ABG Base Excess A-a Gradient Oxyhemoglobin Total Hemoglobin O2 Delivery Device O2 Liters/Min FiO2 Sodium 140 Potassium 4.3 Chloride 107 Carbon Dioxide 19 L Anion Gap 14 H BUN 43 H Creatinine 2.31 H Estim Creat Clear Calc 21 Estimated GFR 27 L Glucose 85 POC Capillary Glucose Lactic Acid Calcium 8.9 Phosphorus Magnesium Total Bilirubin 0.7 AST 22 ALT 15 Alkaline Phosphatase 146 H Ammonia Total Creatine Kinase Troponin I NT-Pro-B Natriuret Pep Total Protein 8.0 Albumin 3.8 Lipase TSH (Reflex) Urine Color Urine Appearance Urine pH Ur Specific [place] Urine Protein Urine Glucose (UA) Urine Ketones Ur Blood (Man) Urine Nitrate Urine Bilirubin Urine Urobilinogen Leukocyte Esterase Rfl Urine RBC Urine WBC Ur Squamous Epith Cells Urine Bacteria Urine Casts Salicylates Urine Opiates Screen Urine Methadone Screen Acetaminophen Ur Barbiturates Screen Ur Phencyclidine Scrn Ur Amphetamine Screen U Benzodiazepines Scrn Urine Cocaine Screen U Cannabinoids Screen Ethyl Alcohol Influenza A (RT-PCR) Influenza B (RT-PCR) RSV (RT-PCR) SARS-CoV-2 RNA (RT-PCR)
--- NOTE | 2025-02-07 14:41 | P.CONCA_ITS ---
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: Code(s): I44.1 - Atrioventricular block, second degree Status: Acute (3) Hypertension: Code(s): I10 - Essential (primary) hypertension Status: Acute Plan 89-year-old man was brought in due to hypersomnolence now found to have bradycardia with intermittent and second-degree AV block (both type 1 as well as 2:1) Bradycardia -given his clinical presentation, would discontinue atenolol and continue to monitor -recommend physical therapy to ensure chronotropic competence while exercising/ambulating Second-degree AV block -permanently discontinue atenolol -natural progression of this disease would be high-grade AV block and if his bradycardia and AV ramon function does not normalize with withdrawal of beta blockade, would recommend pacemaker evaluation -will follow his transthoracic echocardiogram Hypertension -given his chronic kidney disease, I will resume his lisinopril at a lower dose of 10 mg p.o. daily and discontinue the hydrochlorothiazide -given his age condition will liberalize systolic blood pressure go to 140 mm Hg History of Present Illness History of Present Illness Consult date/time: 02/07/25 14:41 Requesting physician: Raza Terrazas MD Consult reason: Other Reason For Visit: AMS Narrative: 89-year-old man was brought in due to hypersomnolence now found to have bradycardia with intermittent and second-degree AV block (both type 1 as well as 2:1). Patient typically is a functionally active person who has a roommate. He describes half a flight of stairs that he typically walks up and down 3 to 5 times a day without any cardiopulmonary limitations. He denies any lightheadedness or syncopal events with exertion. He endorsed that he is forgetful and quite possibly took his medications repeatedly 2-3 times yesterday morning that may have led him to become significantly drowsy and difficult to arouse. Overall, he appears pleasant and awake and shows no evidence of being difficult to arouse and is very conversational. Only current issue he has right now is lack of hearing aids. Of the, on review of his medical electronic records, he does live independently however not with a roommate. He lives in the same house as the home later who noted that the patient has not been cognitively at baseline and has been difficult to arouse. Review of Systems 2 Cardiovascular: Cardiovascular: Reports as per HPI Respiratory: Respiratory: Reports as per HPI [facility] Family History Family History Son Overdose Mother Unknown family medical history Father Unknown family medical history Daughter Cancer Overdose Heart problem Gout Sibling Cancer Sibling Unknown family medical history Social History Social History Years smoked: 3 Smoking status: Former smoker Tobacco type: cigarettes Alcohol intake: never Substance use: never Substance use type: does not use Do You Feel Safe in your Home?: Yes Lack of Transportation: No Lack of Food: Never True Current Housing: I Have Housing Concerned About Future Housing: No Difficulty Paying Gas/Electric Bills: No Difficulty Paying for Meds: No Currently Unemployed: No Education: Grade School Difficulty w/ Childcare or Family Care: No Spiritual care concerns: No Meds Home Medications and Allergies Home Medications ?Medication ?Instructions ?Recorded ?Confirmed ?Type amlodipine 10 mg tablet 10 mg PO DAILY 02/07/25 02/07/25 History atenolol 25 mg tablet 25 mg PO DAILY 02/07/25 02/07/25 History lisinopril 20 2 tablet PO DAILY 02/07/25 02/07/25 History mg-hydrochlorothiazide 25 mg tablet pregabalin 25 mg capsule 50 mg PO HS 02/07/25 02/07/25 History terazosin 5 mg capsule 5 mg PO HS 02/07/25 02/07/25 History testosterone 1 pump topical DAILY 02/07/25 02/07/25 History zolpidem 12.5 mg tablet,extended 12.5 mg PO HS PRN sleep 02/07/25 02/07/25 History release,multiphase Allergies Allergy/AdvReac Type Severity Reaction Status Date / Time No Known Allergies Allergy Verified 02/06/25 21:52 Vital Signs Vital Signs - 24 hr 02/06/25 14:49 02/06/25 15:03 02/06/25 15:15 Temperature 36.4 C Pulse Rate 65 58 L 53 L Respiratory Rate 20 21 H 19 Blood Pressure 131/59 L Pulse Oximetry 99 95 92 Oxygen Delivery Room Air 02/06/25 15:21 02/06/25 15:31 02/06/25 15:32 Temperature Pulse Rate 63 66 73 Respiratory Rate 18 15 16 Blood Pressure 142/58 H 133/69 Pulse Oximetry 95 Oxygen Delivery 02/06/25 16:34 02/06/25 16:41 02/06/25 17:06 Temperature Pulse Rate 66 70 79 Respiratory Rate 15 16 15 Blood Pressure 149/65 H 139/62 100/83 Pulse Oximetry 93 95 96 Oxygen Delivery 02/06/25 17:17 02/06/25 17:45 02/06/25 18:30 Temperature Pulse Rate 53 L 75 49 L Respiratory Rate 30 H 18 20 Blood Pressure 146/74 H 160/68 H Pulse Oximetry 92 96 91 Oxygen Delivery 02/06/25 18:45 02/06/25 18:46 02/06/25 19:00 Temperature Pulse Rate 49 L 43 L 69 Respiratory Rate 16 16 20 Blood Pressure 136/55 L 128/110 H Pulse Oximetry 91 90 97 Oxygen Delivery 02/06/25 19:01 02/06/25 19:22 02/06/25 19:43 Temperature Pulse Rate 65 50 L 42 L Respiratory Rate 15 14 15 Blood Pressure 145/41 H Pulse Oximetry 98 98 96 Oxygen Delivery 02/06/25 20:07 02/06/25 20:15 02/06/25 20:16 Temperature Pulse Rate 42 L 35 L 42 L Respiratory Rate 16 13 17 Blood Pressure 139/43 L Pulse Oximetry 93 99 95 Oxygen Delivery 02/06/25 20:30 02/06/25 20:31 02/06/25 20:45 Temperature Pulse Rate 49 L 42 L 40 L Respiratory Rate 17 17 13 Blood Pressure 149/47 H Pulse Oximetry 94 94 98 Oxygen Delivery 02/06/25 20:46 02/06/25 20:47 02/06/25 21:02 Temperature 36.4 C Pulse Rate 42 L 43 L 54 L Respiratory Rate 16 17 18 Blood Pressure 154/42 H 146/45 H Pulse Oximetry 98 97 100 Oxygen Delivery 02/06/25 21:10 02/06/25 21:20 02/06/25 21:27 Temperature 36.5 C Pulse Rate 62 62 63 Respiratory Rate 18 18 Blood Pressure 144/61 H Pulse Oximetry 96 96 Oxygen Delivery Room Air 02/06/25 22:00 02/06/25 23:01 02/07/25 00:00 Temperature Pulse Rate 54 L 89 68 Respiratory Rate 17 Blood Pressure 130/54 L Pulse Oximetry 100 Oxygen Delivery 02/07/25 00:30 02/07/25 02:00 02/07/25 03:35 Temperature 36.9 C Pulse Rate 89 44 L 54 L Respiratory Rate 17 17 Blood Pressure 121/98 H Pulse Oximetry 100 100 Oxygen Delivery Room Air 02/07/25 04:00 02/07/25 04:30 02/07/25 06:00 Temperature Pulse Rate 46 L 81 37 L Respiratory Rate 18 Blood Pressure Pulse Oximetry 100 Oxygen Delivery Room Air 02/07/25 08:00 02/07/25 08:00 02/07/25 08:01 Temperature 37.4 C Pulse Rate 75 75 44 L Respiratory Rate 22 H Blood Pressure 135/54 L Pulse Oximetry 98 Oxygen Delivery Room Air 02/07/25 10:00 02/07/25 11:33 02/07/25 12:00 Temperature 36.6 C Pulse Rate 52 L 48 L 75 Respiratory Rate 20 Blood Pressure 143/43 H Pulse Oximetry 94 Oxygen Delivery Room Air 02/07/25 12:00 Temperature Pulse Rate 64 Respiratory Rate Blood Pressure Pulse Oximetry Oxygen Delivery Exam 2 Const: General: comfortable HENMT: Mouth: Yes moist mucous membranes Eyes: EOM: EOMs intact bilaterally Neck: Neck: no JVD Resp: Effort & Inspection: normal respiratory effort Auscultation: clear to auscultation bilaterally Cardio: Rate: bradycardic Rhythm: regular rhythm GI: GI Palp: Yes Soft to palpation Extrem: General: no pedal edema Results Labs and Meds 02/07/25 04:45 02/07/25 04:45 Lab results: Cardiac Enzymes 02/06/25 02/06/25 02/06/25 Range/Units 15:15 15:17 18:08 AST 24 (17-59) U/L Troponin I < 0.012 < 0.012 (0.000-0.034) ng/mL 02/07/25 Range/Units 04:45 AST 22 (17-59) U/L Troponin I (0.000-0.034) ng/mL Coagulation 02/06/25 02/06/25 Range/Units 15:17 19:57 PT 14.6 14.3 (11.1-14.7) Seconds APTT 35.0 32.7 (22.3-36.8) Seconds CBC 02/06/25 02/07/25 Range/Units 15:17 04:45 WBC 10.1 H 8.7 (4.5-10.0) K/mm3 RBC 3.87 L 4.13 L (4.6-6.20) M/mm3 Hgb 11.7 L 12.3 L (14.0-18.0) g/dL Hct 35.3 L 37.5 L (42.0-52.0) % Plt Count 307 317 (150-375) k/mm3 Lymph # (Auto) 1.59 1.30 (0.9-3.2) K/mm3 [place] # (Auto) 1.1 H 0.9 H (0.1-0.6) K/mm3 Eos # (Auto) 0.1 0.1 (0-0.3) K/mm3 Baso # (Auto) 0.0 0.0 (0.0-0.1) K/mm3 Comprehensive Metabolic Panel 02/06/25 02/07/25 Range/Units 15:17 04:45 Sodium 137 140 (137-145) mmol/L Potassium 4.6 4.3 (3.4-5.0) mmol/L Chloride 105 107 (98-107) mmol/L Carbon Dioxide 21 L 19 L (22-30) mmol/L BUN 52 H 43 H (9-20) mg/dL Creatinine 2.72 H 2.31 H (0.7-1.3) mg/dL Glucose 111 H 85 (65-110) mg/dL Calcium 8.8 8.9 (8.4-10.2) mg/dL AST 24 22 (17-59) U/L ALT 17 15 (6-50) U/L Alkaline Phosphatase 152 H 146 H (38-126) U/L Total Protein 8.0 8.0 (6.3-8.2) g/dL Albumin 4.1 3.8 (3.5-5.1) g/dL Intake and Output 02/06/25 02/07/25 02/07/25 23:59 07:59 15:59 Intake Total 50 360 Output Total 700 1200 Balance -650 -1200 360 Intake: IV 50 cefTRIAXone 1 GM/NS 50 ML 1 gm 50 In 50 ml @ 100 mls/hr IVPB ONCE STA Rx#:[id number] Oral 360 Output: Catheter Urine 700 1200 Urethral Catheter 700 1200 Patient Weight 02/07/25 23:59 Weight 75.2 kg
[2025-02-07] MEDS: lisinopriL 10 MG TABLET PO (15:10)
[2025-02-08] VITALS (19 sets, daily range): BP systolic 141–166; BP diastolic 48–73; PULSE 38–84; RESP 18–20; TEMP 36.7–36.9; O2SAT 97–100
[2025-02-08] MEDS: ACETAMINOPHEN 325 MG TABLET 650 MG PO ×4 (03:19→22:21)
[2025-02-08 05:09] LABS: Basophils Absolute Auto 0.1 K/mm3 (0.0-0.1); Basophils Percent Auto 0.6 % (0.2-1.2); Eosinophils Absolute Auto 0.3 K/mm3 (0-0.3); Eosinophils Percent Auto 2.8 % (0-4.4); Hematocrit 38.4 % (42.0-52.0); Hemoglobin 12.5 g/dL (14.0-18.0); Immature Granulocyte Absolute 0.06 K/mm3 (0.00-0.031); Immature Granulocyte Percent A 0.6 % (0-0.5); Immature Platelet Fraction Pct 2.7 % (0.9-11.2); Lymphocytes Absolute Auto 2.08 K/mm3 (0.9-3.2); Lymphocytes Percent Auto 20.2 % (18.3-44.2); Mean Corpuscular HGB Conc 32.6 g/dl (32-36); Mean Corpuscular Hemoglobin 30.1 pg (26-34); Mean Corpuscular Volume 92.5 fl (80-100); Mean Platelet Volume 10.3 fl (7.4-10.4); Monocytes Absolute Auto 1.4 K/mm3 (0.1-0.6); Monocytes Percent Auto 13.8 % (2.6-8.5); Neutrophils Absolute Auto 6.4 K/mm3 (1.3-6.7); Platelet Count Result 300 k/mm3 (150-375); Red Blood Count 4.15 M/mm3 (4.6-6.20); Red Cell Distribution Width 14.6 % (11.5-14.5); White Blood Count 10.3 K/mm3 (4.5-10.0)
[2025-02-08 05:24] LABS: Alanine Aminotransferase 13 U/L (6-50); Albumin Level 3.7 g/dL (3.5-5.1); Alkaline Phosphatase 156 U/L (38-126); Anion Gap 12 mmol/L (4-12); Aspartate Amino Transferase 24 U/L (17-59); Bilirubin,Total 0.5 mg/dL (0.2-1.3); Blood Urea Nitrogen 36 mg/dL (9-20); Calcium 8.7 mg/dL (8.4-10.2); Carbon Dioxide 17 mmol/L (22-30); Chloride 111 mmol/L (98-107); Estimated CRCL calculation 23 ml/min; Estimated Glomerular Filt Rate 31; Glucose 105 mg/dL (65-110); Potassium 3.9 mmol/L (3.4-5.0); Sodium 140 mmol/L (137-145)
[2025-02-08 05:41] LABS: Vitamin D 25 Hydroxy 19.6 ng/mL
[2025-02-08 07:43] LABS: Folic Acid 5.9 ng/mL (2.76->20)
[2025-02-08] MEDS: HEPARIN SODIUM 5,000 UNITS/ML VIAL 5000 UNITS SUB-Q ×2 (09:41→22:18)
[2025-02-08] MEDS: CYANOCOBALAMIN INJ 1,000 MCG/ML VIAL 1000 MCG IM (09:41)
[2025-02-08] MEDS: CHOLECALCIFEROL 1,000 UNITS TABLET 1000 UNITS PO (09:42)
[2025-02-08] MEDS: amLODIPine BESYLATE 10 MG TABLET PO (09:43)
--- NOTE | 2025-02-08 09:56 | PM.IMPN ---
Progress Note: A&P Assessment and Plan (1) Acute metabolic encephalopathy: Code(s): G93.41 - Metabolic encephalopathy Status: Acute Assessment and Plan: Patient presents with altered mental status. CT brain showing no acute findings. CT cervical spine showing no acute osseous abnormalities. WBC essentially normal. ABG 7.39/33/68 on RA. TSH normal. Lactic normal. Ammonia negative. B12 311 (MMA ordered). VitD 19.6 UDS negative. Alcohol, Acet and Salicylate level negative. COVID, Influenza and RSV PCR negative. UA consistent with UTI; Blood and Urine cultures collected. Rocephin started. UCx negative BCx NGTD Related to medications (narcotics, Ambien) and/or DAVIDSON and/or urine retention. Mental status better. Monitor for now. Follow up on cultures. 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 EKG initially showing 1st degree AVB. Repeat EKG showing 2nd degree AVB Type I. Echo showing normal biventricular size and systolic fxn, EF 65-70% and no significant valvular disease. He was on atenolol on admission but this was stopped. No plans on resuming this. Cardiology consulted with consideration of PM if his bradycardia does not improve. 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 Distended bladder which could be due to chronic outlet obstruction from the enlarged prostate. Nichole placed for retention. Retention could be related to recent urologic procedure and/or recent narcotics. Cr was 2.7 on admission and now trending down since Nichole in place. Metabolic mild gap acidosis noted felt related to the DAVIDSON. Baseline Cr unknown but suspect some CKD given the renal atrophy. Good UOP. Follow UOP, electrolytes and renal fxn. Plan for voiding trial prior to discharge when he is more awake and alert. (4) Urinary retention: Code(s): R33.9 - Retention of urine, unspecified Status: Acute Assessment and Plan: As above (5) Acute UTI: Code(s): N39.0 - Urinary tract infection, site not specified Status: Acute Assessment and Plan: UA was consistent with UTI. UCx collected. Rocephin started. UCx negative. UTI ruled out (6) Hypertension: Code(s): I10 - Essential (primary) hypertension Status: Acute Assessment and Plan: Patient's blood pressure was reviewed on 02/08 Blood pressure remains mildly elevated Lisinopril and Norvasc resumed Continue to monitor (7) Thyroid nodule: Code(s): E04.1 - Nontoxic single thyroid nodule Status: Acute Assessment and Plan: CTA chest showing multinodular goiter with up to 3.6 cm mass in the left thyroid lobe. TSH normal. Plan for thyroid US as outpatient. (8) BPH (benign prostatic hyperplasia): Code(s): N40.0 - Benign prostatic hyperplasia without lower urinary tract symptoms Status: Acute Assessment and Plan: Stable. Terazosin on hold. Plan Code status - Full VTE prophylaxis - SCDs; TANA Subjective Date/time seen: 02/08/25 09:56 Interval history: 89yo male with BPH here for altered mental status. He had recently underwent a urological procedure and was sent home with opioids for pain control. Complains of left knee pain after a fall prior to admission. No CP or SOB. Denies using narcotics at home. No n/v. Eating okay. no dysuria or heamturia prior to admission. No urine retention symptoms prior to admission. Exam Narrative: AF 98.0 148/51 66 20 100% ra Gen - NARD Chest - CTA bilaterally CV - bradycardia. Tele showing 2nd degree AVB Abd - Soft, NT/ND, Positive BS - Nichole secured draining clear yellow urine Ext - No pedal edema. no pain to the right LE joints or the left hip or ankle. Localized and exquisite pain to the medial distal left knee overlying the tibial head (small amount of bruising noted at the site). Exam limited due to pain. no left knee joint swelling. Neuro - Alert and appropriate. Psych - Nml mood and affect Skin - Warm and dry Objective Data Vital Signs Vital Signs: Vital Signs - 24 hr 02/07/25 10:00 02/07/25 11:33 02/07/25 12:00 Temperature 97.9 F Pulse Rate 52 L 48 L 75 Respiratory Rate 20 Blood Pressure 143/43 H Pulse Oximetry 94 Oxygen Delivery Room Air 02/07/25 12:00 02/07/25 13:30 02/07/25 14:00 Temperature Pulse Rate 64 44 L Respiratory Rate Blood Pressure Pulse Oximetry Oxygen Delivery Room Air 02/07/25 15:41 02/07/25 16:00 02/07/25 16:00 Temperature 98.3 F Pulse Rate 45 L 75 37 L Respiratory Rate 20 Blood Pressure 138/83 Pulse Oximetry 95 Oxygen Delivery Room Air 02/07/25 18:00 02/07/25 18:13 02/07/25 19:42 Temperature 97.6 F Pulse Rate 71 59 L Respiratory Rate 20 Blood Pressure 145/59 H Pulse Oximetry 95 96 Oxygen Delivery Room Air 02/07/25 20:00 02/07/25 21:10 02/07/25 22:00 Temperature Pulse Rate 41 L 59 L 43 L Respiratory Rate 20 Blood Pressure Pulse Oximetry 96 Oxygen Delivery Room Air 02/07/25 23:50 02/08/25 00:00 02/08/25 00:00 Temperature 98.4 F Pulse Rate 40 L 40 L 38 L Respiratory Rate 20 20 Blood Pressure 156/48 H Pulse Oximetry 97 97 Oxygen Delivery Room Air 02/08/25 01:56 02/08/25 03:10 02/08/25 03:15 Temperature 98.3 F Pulse Rate 42 L 45 L 45 L Respiratory Rate 20 20 Blood Pressure 166/53 H Pulse Oximetry 99 99 Oxygen Delivery Room Air 02/08/25 04:00 02/08/25 06:00 02/08/25 07:49 Temperature 98.0 F Pulse Rate 51 L 45 L 66 Respiratory Rate 20 Blood Pressure 148/51 H Pulse Oximetry 100 Oxygen Delivery Intake/Output Intake/Output: Intake & Output 02/05/25 02/06/25 02/07/25 02/08/25 23:59 23:59 23:59 23:59 Intake Total 50 950 300 Output Total 700 2150 900 Balance -650 -1200 -600 Meds/Results Medications: Active Medications Generic Name Dose Route Start Last Admin Trade Name Freq PRN Reason Stop Dose Admin Acetaminophen 650 mg 02/06/25 19:43 02/08/25 09:41 Acetaminophen 325 Mg Tablet PO 650 mg Q4H PRN Administration Mild Pain (1-3) or Fever Amlodipine Besylate 10 mg 02/08/25 09:00 02/08/25 09:43 Amlodipine Besylate 10 Mg Tablet PO 10 mg DAILY TANA Administration Bisacodyl 10 mg 02/06/25 19:43 Bisacodyl 10 Mg Suppository RECTAL ONCE PRN Constipation Cyanocobalamin 1,000 mcg 02/08/25 09:00 02/08/25 09:41 Cyanocobalamin Inj 1,000 Mcg/Ml Vial IM 1,000 mcg WEEKLY TANA Administration Heparin Sodium (Porcine) 5,000 units 02/06/25 21:00 02/08/25 09:41 Heparin Sodium 5,000 Units/Ml Vial SUB-Q 5,000 units Q12HR TANA Administration Ceftriaxone Sodium 1 gm in 50 mls @ 100 mls/hr 02/07/25 18:00 02/07/25 19:00 Rocephin 1 Gm/Ns 50 Ml IVPB Infused Q24H TANA Infusion Lisinopril 10 mg 02/07/25 15:05 02/07/25 15:10 Lisinopril 10 Mg Tablet PO 10 mg DAILY TANA Administration Naloxone HCl 0.1 mg 02/06/25 19:43 Naloxone Hcl 0.4 Mg/Ml Vial IV PUSH Q2M PRN Opiate Reversal Perflutren Lipid Microsphere 0 ml 02/06/25 19:49 Perflutren Lipid Microspheres 1.5 Ml Vial Diluted To 10 Ml Total Volume IV PUSH 02/09/25 19:49 ONCE PRN adequate visualization Protocol Prochlorperazine Edisylate 10 mg 02/06/25 19:43 Prochlorperazine Edisylate 10 Mg/2 Ml Vial IV PUSH Q6H PRN Nausea And Vomiting Vitamin D 1,000 units 02/08/25 09:00 02/08/25 09:42 Cholecalciferol 1,000 Units Tablet PO 1,000 units DAILY TANA Administration Radiology Results: ITS Impressions Head CT 02/06/25 16:43 IMPRESSION: No acute intracranial findings. Chest/Abdomen/Pelvis CTA 02/06/25 16:45 IMPRESSION: 1. Dependent atelectasis in both lungs. No aortic aneurysm, dissection or other acute cardiopulmonary disease. 2. Cardia megaly. 3. Possible small sliding-type hiatal hernia. 4. Pneumobilia likely related to a distal biliary stent. 5. Edematous wall thickening of the gallbladder but without dilation or pericholecystic inflammatory stranding to suggest acute cholecystitis is more likely related to either chronic cholecystitis, heart failure, renal failure or other generalized edema forming states. 6. 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 7. 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 8. Distended bladder which could be due to chronic outlet obstruction from the enlarged prostate. Cervical Spine CT 02/06/25 16:53 IMPRESSION: No acute osseous abnormality cervical spine. Multilevel degenerative disc disease. Postoperative changes. Labs Labs: Laboratory Results - last 24 hr 02/08/25 04:55 WBC 10.3 H RBC 4.15 L Hgb 12.5 L Hct 38.4 L MCV 92.5 MCH 30.1 MCHC 32.6 RDW 14.6 H Plt Count 300 MPV 10.3 Immature Gran % (Auto) 0.6 H Neut % (Auto) 62.0 Lymph % (Auto) 20.2 [place] % (Auto) 13.8 H Eos % (Auto) 2.8 Baso % (Auto) 0.6 Lymph # (Auto) 2.08 [place] # (Auto) 1.4 H Eos # (Auto) 0.3 Baso # (Auto) 0.1 Abs Immat Gran (auto) 0.06 H Absolute Neuts (auto) 6.4 Absolute Nucleated RBC 0.000 Nucleated RBC % 0.0 % Immature Plt Fraction 2.7 Sodium 140 Potassium 3.9 Chloride 111 H Carbon Dioxide 17 L Anion Gap 12 BUN 36 H Creatinine 2.07 H Estim Creat Clear Calc 23 Estimated GFR 31 L Glucose 105 Calcium 8.7 Total Bilirubin 0.5 AST 24 ALT 13 Alkaline Phosphatase 156 H Total Protein 8.0 Albumin 3.7 Vitamin B12 311.0 Vitamin D 25-Hydroxy 19.6 Folate 5.9
--- NOTE | 2025-02-08 10:26 | PM.PNCARD ---
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: Code(s): I44.1 - Atrioventricular block, second degree Status: Acute (2) Bradycardia: Code(s): R00.1 - Bradycardia, unspecified Status: Acute (3) Hypertension: Code(s): I10 - Essential (primary) hypertension Status: Acute Plan 89-year-old man was brought in due to hypersomnolence now found to have bradycardia with intermittent and second-degree AV block (both type 1 as well as 2:1) Bradycardia -given his clinical presentation, would discontinue atenolol permanently and avoid beta-blockade -he endorses that he work with physical therapy yesterday without any lightheadedness or cardiopulmonary limitations -he is acceptable for discharge to follow-up with cardiology clinic 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 daily and amlodipine 10 p.o. daily -given his age condition will liberalize systolic blood pressure go to 140 mm Hg Knee pain -significant tenderness in the medial aspect his left knee -management per primary I have message my office to set up an appointment to follow-up with us in clinic and discussed with patient that he should be receiving a phone call from our office to set up an appointment Subjective Date/time seen: 02/08/25 10:26 Interval history: No lightheadedness or syncopal events. No chest pain or shortness of breath. Review of Systems Cardiovascular: Cardiovascular: Reports as per HPI Respiratory: Respiratory: Reports as per HPI Exam Const: General: comfortable HENMT: Mouth: Yes moist mucous membranes Eyes: EOM: EOMs intact bilaterally Neck: Neck: no JVD Resp: Effort & Inspection: normal respiratory effort Auscultation: clear to auscultation bilaterally Cardio: Rate: regular rate Rhythm: regular rhythm GI: GI Palp: Yes Soft to palpation Extrem: Other: Left medial knee tenderness Objective Data Vital Signs Vital Signs: Vital Signs - 24 hr 02/07/25 11:33 02/07/25 12:00 02/07/25 12:00 Temperature 36.6 C Pulse Rate 48 L 75 64 Respiratory Rate 20 Blood Pressure 143/43 H Pulse Oximetry 94 Oxygen Delivery Room Air 02/07/25 13:30 02/07/25 14:00 02/07/25 15:41 Temperature 36.8 C Pulse Rate 44 L 45 L Respiratory Rate 20 Blood Pressure 138/83 Pulse Oximetry 95 Oxygen Delivery Room Air 02/07/25 16:00 02/07/25 16:00 02/07/25 18:00 Temperature Pulse Rate 75 37 L 71 Respiratory Rate Blood Pressure Pulse Oximetry Oxygen Delivery Room Air 02/07/25 18:13 02/07/25 19:42 02/07/25 20:00 Temperature 36.4 C Pulse Rate 59 L 41 L Respiratory Rate 20 Blood Pressure 145/59 H Pulse Oximetry 95 96 Oxygen Delivery Room Air 02/07/25 21:10 02/07/25 22:00 02/07/25 23:50 Temperature Pulse Rate 59 L 43 L 40 L Respiratory Rate 20 20 Blood Pressure Pulse Oximetry 96 97 Oxygen Delivery Room Air Room Air 02/08/25 00:00 02/08/25 00:00 02/08/25 01:56 Temperature 36.9 C Pulse Rate 40 L 38 L 42 L Respiratory Rate 20 Blood Pressure 156/48 H Pulse Oximetry 97 Oxygen Delivery 02/08/25 03:10 02/08/25 03:15 02/08/25 04:00 Temperature 36.8 C Pulse Rate 45 L 45 L 51 L Respiratory Rate 20 20 Blood Pressure 166/53 H Pulse Oximetry 99 99 Oxygen Delivery Room Air 02/08/25 06:00 02/08/25 07:49 Temperature 36.7 C Pulse Rate 45 L 66 Respiratory Rate 20 Blood Pressure 148/51 H Pulse Oximetry 100 Oxygen Delivery Intake/Output Intake/Output: Intake & Output 02/05/25 02/06/25 02/07/25 02/08/25 23:59 23:59 23:59 23:59 Intake Total 50 950 540 Output Total 700 2150 900 Balance -650 -1200 -360 Meds/Results Medications: Active Medications Generic Name Dose Route Start Last Admin Trade Name Freq PRN Reason Stop Dose Admin Acetaminophen 650 mg 02/06/25 19:43 02/08/25 09:41 Acetaminophen 325 Mg Tablet PO 650 mg Q4H PRN Administration Mild Pain (1-3) or Fever Amlodipine Besylate 10 mg 02/08/25 09:00 02/08/25 09:43 Amlodipine Besylate 10 Mg Tablet PO 10 mg DAILY TANA Administration Bisacodyl 10 mg 02/06/25 19:43 Bisacodyl 10 Mg Suppository RECTAL ONCE PRN Constipation Cyanocobalamin 1,000 mcg 02/08/25 09:00 02/08/25 09:41 Cyanocobalamin Inj 1,000 Mcg/Ml Vial IM 1,000 mcg WEEKLY TANA Administration Heparin Sodium (Porcine) 5,000 units 02/06/25 21:00 02/08/25 09:41 Heparin Sodium 5,000 Units/Ml Vial SUB-Q 5,000 units Q12HR TANA Administration Ceftriaxone Sodium 1 gm in 50 mls @ 100 mls/hr 02/07/25 18:00 02/07/25 19:00 Rocephin 1 Gm/Ns 50 Ml IVPB Infused Q24H TANA Infusion Lisinopril 10 mg 02/07/25 15:05 02/07/25 15:10 Lisinopril 10 Mg Tablet PO 10 mg DAILY TANA Administration Naloxone HCl 0.1 mg 02/06/25 19:43 Naloxone Hcl 0.4 Mg/Ml Vial IV PUSH Q2M PRN Opiate Reversal Perflutren Lipid Microsphere 0 ml 02/06/25 19:49 Perflutren Lipid Microspheres 1.5 Ml Vial Diluted To 10 Ml Total Volume IV PUSH 02/09/25 19:49 ONCE PRN adequate visualization Protocol Prochlorperazine Edisylate 10 mg 02/06/25 19:43 Prochlorperazine Edisylate 10 Mg/2 Ml Vial IV PUSH Q6H PRN Nausea And Vomiting Vitamin D 1,000 units 02/08/25 09:00 02/08/25 09:42 Cholecalciferol 1,000 Units Tablet PO 1,000 units DAILY TANA Administration Radiology Results: ITS Impressions Head CT 02/06/25 16:43 IMPRESSION: No acute intracranial findings. Chest/Abdomen/Pelvis CTA 02/06/25 16:45 IMPRESSION: 1. Dependent atelectasis in both lungs. No aortic aneurysm, dissection or other acute cardiopulmonary disease. 2. Cardia megaly. 3. Possible small sliding-type hiatal hernia. 4. Pneumobilia likely related to a distal biliary stent. 5. Edematous wall thickening of the gallbladder but without dilation or pericholecystic inflammatory stranding to suggest acute cholecystitis is more likely related to either chronic cholecystitis, heart failure, renal failure or other generalized edema forming states. 6. 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 7. 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 8. Distended bladder which could be due to chronic outlet obstruction from the enlarged prostate. Cervical Spine CT 02/06/25 16:53 IMPRESSION: No acute osseous abnormality cervical spine. Multilevel degenerative disc disease. Postoperative changes. Labs Labs: Laboratory Results - last 24 hr 02/08/25 04:55 WBC 10.3 H RBC 4.15 L Hgb 12.5 L Hct 38.4 L MCV 92.5 MCH 30.1 MCHC 32.6 RDW 14.6 H Plt Count 300 MPV 10.3 Immature Gran % (Auto) 0.6 H Neut % (Auto) 62.0 Lymph % (Auto) 20.2 Hawkins % (Auto) 13.8 H Eos % (Auto) 2.8 Baso % (Auto) 0.6 Lymph # (Auto) 2.08 Hawkins # (Auto) 1.4 H Eos # (Auto) 0.3 Baso # (Auto) 0.1 Abs Immat Gran (auto) 0.06 H Absolute Neuts (auto) 6.4 Absolute Nucleated RBC 0.000 Nucleated RBC % 0.0 % Immature Plt Fraction 2.7 Sodium 140 Potassium 3.9 Chloride 111 H Carbon Dioxide 17 L Anion Gap 12 BUN 36 H Creatinine 2.07 H Estim Creat Clear Calc 23 Estimated GFR 31 L Glucose 105 Calcium 8.7 Total Bilirubin 0.5 AST 24 ALT 13 Alkaline Phosphatase 156 H Total Protein 8.0 Albumin 3.7 Vitamin B12 311.0 Vitamin D 25-Hydroxy 19.6 Folate 5.9
[2025-02-08] MEDS: lisinopriL 10 MG TABLET PO (12:18)
--- NOTE | 2025-02-08 16:17 | ADMGEN ---
This patient, Jose Armando Greenberg, was admitted to IMU Room 205-02 @ 1500. Patient/family oriented to hospital policies and general routines including ID bracelet, bed and alarms, visiting hours, pain management, procedures, bathroom and other care routines, personal items, smoking policy, room service/diet, and visiting hours. monitor 100% AV paced; no c/o pain or SOB Information on how to activate the Rapid Response Team has been discussed. Patient/Family are encouraged to report perceived risks to care and to ask questions if they do not understand what they are told or what they should do.
[2025-02-09] VITALS (19 sets, daily range): BP systolic 142–173; BP diastolic 65–95; PULSE 63–109; RESP 12–24; TEMP 36.6–36.8; O2SAT 94–98
[2025-02-09] MEDS: OLANZapine 10 MG INJ VIAL IM (01:55)
[2025-02-09 04:31] LABS: Basophils Absolute Auto 0.1 K/mm3 (0.0-0.1); Basophils Percent Auto 0.4 % (0.2-1.2); Eosinophils Percent Auto 0.2 % (0-4.4); Hematocrit 42.2 % (42.0-52.0); Hemoglobin 13.8 g/dL (14.0-18.0); Immature Granulocyte Absolute 0.06 K/mm3 (0.00-0.031); Immature Granulocyte Percent A 0.5 % (0-0.5); Lymphocytes Absolute Auto 1.42 K/mm3 (0.9-3.2); Lymphocytes Percent Auto 10.9 % (18.3-44.2); Mean Corpuscular HGB Conc 32.7 g/dl (32-36); Mean Corpuscular Hemoglobin 29.7 pg (26-34); Mean Corpuscular Volume 90.9 fl (80-100); Mean Platelet Volume 9.7 fl (7.4-10.4); Monocytes Absolute Auto 1.6 K/mm3 (0.1-0.6); Monocytes Percent Auto 12.1 % (2.6-8.5); Neutrophils Absolute Auto 9.9 K/mm3 (1.3-6.7); Neutrophils Percent Auto 75.9 % (45.5-73.1); Platelet Count Result 318 k/mm3 (150-375); Red Blood Count 4.64 M/mm3 (4.6-6.20); Red Cell Distribution Width 14.5 % (11.5-14.5)
[2025-02-09 04:48] LABS: Alanine Aminotransferase 19 U/L (6-50); Albumin Level 4.1 g/dL (3.5-5.1); Alkaline Phosphatase 143 U/L (38-126); Anion Gap 11 mmol/L (4-12); Aspartate Amino Transferase 31 U/L (17-59); Bilirubin,Total 0.5 mg/dL (0.2-1.3); Blood Urea Nitrogen 24 mg/dL (9-20); Calcium 8.8 mg/dL (8.4-10.2); Carbon Dioxide 22 mmol/L (22-30); Chloride 107 mmol/L (98-107); Estimated CRCL calculation 25 ml/min; Estimated Glomerular Filt Rate 35; Glucose 116 mg/dL (65-110); Potassium 3.8 mmol/L (3.4-5.0); Sodium 140 mmol/L (137-145)
[2025-02-09] MEDS: amLODIPine BESYLATE 10 MG TABLET PO (08:27)
[2025-02-09] MEDS: CHOLECALCIFEROL 1,000 UNITS TABLET 1000 UNITS PO (08:27)
[2025-02-09] MEDS: lisinopriL 10 MG TABLET PO (08:27)
[2025-02-09] MEDS: HEPARIN SODIUM 5,000 UNITS/ML VIAL 5000 UNITS SUB-Q ×2 (08:27→23:45)
--- NOTE | 2025-02-09 09:09 | PC.NURSE ---
02/09/25 at 0130- Pt with increased confusion. Pt A&O x2 at this time (person and president). Peripheral LFA IV found removed from Pt's arm with the IV catheter intact and laying on the floor at the foot of his bed. Pt also found with his urinary catheter bag ripped from the catheter tubing and the catheter bag laying on the floor. Catheter fixation device also found removed from Pt's leg and broken. When patient was asked why he removed/pulled out/broke his needed medical devices, he stated, I did not remove them. You did! Pt asking repeatedly to get up out of the bed and get dressed. Pt stating, A friend is coming to pick him up to take him home and he needs to get going. Pt also keeps talking about going to meet up with his boss. Pt now stating, He needs to get out of here because he is going to be late for work. Attempted to reorientate the patient multiple times unsuccessfully. Patient becoming suspicious towards staff and does not believe that he is at the hospital. Patient also does not recall any of the events that led him to his admission or how he got to the hospital. Pt reorientated to the events that led to his admission. Pt continues to attempt to climb out of bed. This RN and Ben Chowdhury RN pulled patient up in the bed and assisted to reposition. Pt attempted to kick at the ABIDA Contreras. Again, attempted to reorient patient unsuccessfully. ABIDA Contreras. to remain at Pt's bedside while this RN can leave the room to provide care for another patient. While this RN was returning back to this pt's room, a loud commotion heard with patient yelling at ABIDA Contreras. Pt's water pitcher, a large puddle of water and the patient's bed pad found laying on the floor by the wall at the foot of his bed. ABIDA Contreras. states that this patient was telling him that he needs to get out of bed and go home and became increasingly agitated when RN. Ben attempted to reorient him. This patient then grabbed his full ice water pitcher and threw it across the room towards Ben MAYES's head followed with his bed pad. 0145- Dr. Stallings notified of Pt's extreme confusion, agitation and aggressiveness towards staff members and pulling out his IV and attempting to pull out his urinary catheter. New orders received for bilateral soft wrist restraints and medication. 0205-Attempted to call Pt's grand daughter, Petra Fairbanks to update her regarding Pt's condition and orders received for restraints with no answer. Message left to return phone call for patient updates. lead ramp agent, Whitley Brown and Emissions Engineer, Justine Dietz called and updated with patient's condition and current orders.
[2025-02-09] MEDS: ACETAMINOPHEN 325 MG TABLET 650 MG PO ×2 (10:32→14:07)
--- NOTE | 2025-02-09 11:58 | PM.IMPN ---
Progress Note: A&P Assessment and Plan (1) Acute metabolic encephalopathy: Code(s): G93.41 - Metabolic encephalopathy Status: Acute Assessment and Plan: Patient presents with altered mental status. CT brain showing no acute findings. CT cervical spine showing no acute osseous abnormalities. WBC essentially normal. ABG 7.39/33/68 on RA. TSH normal. Lactic normal. Ammonia negative. B12 311 (MMA ordered). VitD 19.6 UDS negative. Alcohol, Acet and Salicylate level negative. COVID, Influenza and RSV PCR negative. UA consistent with UTI; Blood and Urine cultures collected. Rocephin started. UCx negative BCx NGTD Related to medications (narcotics, Ambien) and/or DAVIDSON and/or urine retention. Mental status better. Monitor for now. Follow up on cultures. 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 EKG initially showing 1st degree AVB. Repeat EKG showing 2nd degree AVB Type I. Echo showing normal biventricular size and systolic fxn, EF 65-70% and no significant valvular disease. He was on atenolol on admission but this was stopped. No plans on resuming this. Cardiology consulted with consideration of PM if his bradycardia does not improve. 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 Distended bladder which could be due to chronic outlet obstruction from the enlarged prostate. Nichole placed for retention. Retention could be related to recent urologic procedure and/or recent narcotics. Cr was 2.7 on admission and now trending down since Nichole in place. Metabolic mild gap acidosis noted felt related to the DAVIDSON. Baseline Cr unknown but suspect some CKD given the renal atrophy. Good UOP. Follow UOP, electrolytes and renal fxn. Plan for voiding trial prior to discharge when he is more awake and alert. (4) Urinary retention: Code(s): R33.9 - Retention of urine, unspecified Status: Acute Assessment and Plan: As above (5) Left knee pain: Code(s): M25.562 - Pain in left knee Status: Acute Assessment and Plan: - XR knee LT 3V: No acute osseous abnormality left knee. - PT/OT eval - Pt denies any SNF or HH - To be discharged after cleared by PT/OT (6) Acute UTI: Code(s): N39.0 - Urinary tract infection, site not specified Status: Acute Assessment and Plan: UA was consistent with UTI. UCx collected. Rocephin started. UCx negative. UTI ruled out (7) Hypertension: Code(s): I10 - Essential (primary) hypertension Status: Acute Assessment and Plan: Patient's blood pressure was reviewed on 02/08 Blood pressure remains mildly elevated Lisinopril and Norvasc resumed Continue to monitor (8) Thyroid nodule: Code(s): E04.1 - Nontoxic single thyroid nodule Status: Acute Assessment and Plan: CTA chest showing multinodular goiter with up to 3.6 cm mass in the left thyroid lobe. TSH normal. Plan for thyroid US as outpatient. (9) BPH (benign prostatic hyperplasia): Code(s): N40.0 - Benign prostatic hyperplasia without lower urinary tract symptoms Status: Acute Assessment and Plan: Stable. Terazosin on hold. Plan Code status - Full VTE prophylaxis - SCDs; TANA Subjective Date/time seen: 02/09/25 11:58 Interval history: 89yo male with BPH here for altered mental status. He had recently underwent a urological procedure and was sent home with opioids for pain control. Complains of left knee pain after a fall prior to admission. No CP or SOB. Denies using narcotics at home. No n/v. Eating okay. no dysuria or heamturia prior to admission. No urine retention symptoms prior to admission. 02/09/2025 Patient sitting in chair besides bed at time of examination. Cardiology signed off on 02/08 with careful instructions for the patient to followup with his office in the outpatient setting for eventual pacemaker placement. At this time patient denies any chest pain, shortness of breath, n/v, abdominal pain. He does still complain of left knee pain and struggled with physical therapy exercises. Pt determined not to be safe for discharge at this time as he lives with a roommate and would need additional services to assist with ADLs. Working with care coordination regarding possible SNF or HH to be set up. I was called to the floor as the patient was getting very agitated regarding having to stay in the hospital but we had a long discussion regarding the benefit of staying the hospital for the time being while working with PT/OT to be able to become independent for at home mobility or so that home health can be set up. Pt was amenable to this plan and will plan for possible discharge tomorrow pending HH or placement. Review of Systems Review of Systems: All systems reviewed & are unremarkable except as noted in HPI and below Exam Narrative: AF 98.0 147/78 90 12 100% ra Gen - NARD Chest - CTA bilaterally CV - - heart was regular rate and rhythm. S1-S2. No murmurs gallops or rubs Tele showing 2nd degree AVB Abd - Soft, NT/ND, Positive BS - Nichole secured draining clear yellow urine Ext - No pedal edema. no pain to the right LE joints or the left hip or ankle. Localized and exquisite pain to the medial distal left knee overlying the tibial head (small amount of bruising noted at the site). Exam limited due to pain. no left knee joint swelling. Neuro - Alert and appropriate. Psych - Nml mood and affect Skin - Warm and dry Const: General: no acute distress HENMT: Face/Nose/Sinus: Normal nares present Mouth: Yes dry mucous membranes Eyes: Sclera: sclerae normal Pupils: Equal, round and reactive pupils present EOM: EOMs intact bilaterally Cardio: Rate: bradycardic Rhythm: abnormal rhythm Urinary Catheter: Urinary Catheter: patent and draining and urine clear Skin: General skin exam: normal color Neuro: Cranial nerves: Yes Equal, round and reactive pupils present Speech: No normal speech (Garbled speech) Psych: Mental Status: mental status grossly abnormal Affect: No normal affect Objective Data Vital Signs Vital Signs: Vital Signs - 24 hr 02/08/25 12:30 02/08/25 14:00 02/08/25 15:46 Temperature 98.5 F Pulse Rate 46 L 84 76 Respiratory Rate 18 Blood Pressure 145/71 H Pulse Oximetry 98 Oxygen Delivery 02/08/25 16:00 02/08/25 18:00 02/08/25 19:40 Temperature 98.5 F Pulse Rate 78 46 L 81 Respiratory Rate 20 Blood Pressure 141/73 H Pulse Oximetry 99 Oxygen Delivery 02/08/25 19:50 02/08/25 20:00 02/08/25 22:00 Temperature Pulse Rate 81 57 L 74 Respiratory Rate 20 Blood Pressure Pulse Oximetry 99 Oxygen Delivery Room Air 02/09/25 00:00 02/09/25 00:00 02/09/25 00:20 Temperature 98.2 F Pulse Rate 79 88 83 Respiratory Rate 22 H 14 Blood Pressure 152/69 H Pulse Oximetry 98 97 Oxygen Delivery Room Air 02/09/25 02:00 02/09/25 03:40 02/09/25 04:00 Temperature Pulse Rate 109 H 97 101 H Respiratory Rate 24 H Blood Pressure Pulse Oximetry 97 Oxygen Delivery Room Air 02/09/25 04:20 02/09/25 06:00 02/09/25 07:22 Temperature 97.8 F 97.9 F Pulse Rate 97 92 95 Respiratory Rate 24 H 24 H Blood Pressure 155/83 H 142/95 H Pulse Oximetry 97 94 Oxygen Delivery 02/09/25 08:00 02/09/25 10:00 Temperature Pulse Rate 89 74 Respiratory Rate Blood Pressure Pulse Oximetry Oxygen Delivery Intake/Output Intake/Output: Intake & Output 02/06/25 02/07/25 02/08/25 02/09/25 23:59 23:59 23:59 23:59 Intake Total 50 950 1830 643 Output Total 700 2150 2930 440 Balance -650 -1200 -1100 203 Meds/Results Medications: Active Medications Generic Name Dose Route Start Last Admin Trade Name Freq PRN Reason Stop Dose Admin Acetaminophen 650 mg 02/06/25 19:43 02/09/25 10:32 Acetaminophen 325 Mg Tablet PO 650 mg Q4H PRN Administration Mild Pain (1-3) or Fever Amlodipine Besylate 10 mg 02/08/25 09:00 02/09/25 08:27 Amlodipine Besylate 10 Mg Tablet PO 10 mg DAILY TANA Administration Bisacodyl 10 mg 02/06/25 19:43 Bisacodyl 10 Mg Suppository RECTAL ONCE PRN Constipation Cyanocobalamin 1,000 mcg 02/08/25 09:00 02/08/25 09:41 Cyanocobalamin Inj 1,000 Mcg/Ml Vial IM 1,000 mcg WEEKLY TANA Administration Heparin Sodium (Porcine) 5,000 units 02/06/25 21:00 02/09/25 08:27 Heparin Sodium 5,000 Units/Ml Vial SUB-Q 5,000 units Q12HR TANA Administration Ceftriaxone Sodium 1 gm in 50 mls @ 100 mls/hr 02/07/25 18:00 02/08/25 18:10 Rocephin 1 Gm/Ns 50 Ml IVPB Infused Q24H TANA Infusion Lisinopril 10 mg 02/07/25 15:05 02/09/25 08:27 Lisinopril 10 Mg Tablet PO 10 mg DAILY TANA Administration Naloxone HCl 0.1 mg 02/06/25 19:43 Naloxone Hcl 0.4 Mg/Ml Vial IV PUSH Q2M PRN Opiate Reversal Perflutren Lipid Microsphere 0 ml 02/06/25 19:49 Perflutren Lipid Microspheres 1.5 Ml Vial Diluted To 10 Ml Total Volume IV PUSH 02/09/25 19:49 ONCE PRN adequate visualization Protocol Prochlorperazine Edisylate 10 mg 02/06/25 19:43 Prochlorperazine Edisylate 10 Mg/2 Ml Vial IV PUSH Q6H PRN Nausea And Vomiting Vitamin D 1,000 units 02/08/25 09:00 02/09/25 08:27 Cholecalciferol 1,000 Units Tablet PO 1,000 units DAILY TANA Administration Radiology Results: ITS Impressions Head CT 02/06/25 16:43 IMPRESSION: No acute intracranial findings. Chest/Abdomen/Pelvis CTA 02/06/25 16:45 IMPRESSION: 1. Dependent atelectasis in both lungs. No aortic aneurysm, dissection or other acute cardiopulmonary disease. 2. Cardia megaly. 3. Possible small sliding-type hiatal hernia. 4. Pneumobilia likely related to a distal biliary stent. 5. Edematous wall thickening of the gallbladder but without dilation or pericholecystic inflammatory stranding to suggest acute cholecystitis is more likely related to either chronic cholecystitis, heart failure, renal failure or other generalized edema forming states. 6. 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 7. 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 8. Distended bladder which could be due to chronic outlet obstruction from the enlarged prostate. Cervical Spine CT 02/06/25 16:53 IMPRESSION: No acute osseous abnormality cervical spine. Multilevel degenerative disc disease. Postoperative changes. Knee X-Ray 02/08/25 13:40 IMPRESSION: No acute osseous abnormality left knee. Upper Quadrant Ultrasound 02/08/25 20:13 Impression: Mild gallbladder wall thickening. Questionable gallstone. Consider MR/MRCP as indicated. Labs Labs: Laboratory Results - last 24 hr 02/09/25 04:17 WBC 13.0 H RBC 4.64 Hgb 13.8 L Hct 42.2 MCV 90.9 MCH 29.7 MCHC 32.7 RDW 14.5 Plt Count 318 MPV 9.7 Immature Gran % (Auto) 0.5 Neut % (Auto) 75.9 H Lymph % (Auto) 10.9 L [place] % (Auto) 12.1 H Eos % (Auto) 0.2 Baso % (Auto) 0.4 Lymph # (Auto) 1.42 [place] # (Auto) 1.6 H Eos # (Auto) 0.0 Baso # (Auto) 0.1 Abs Immat Gran (auto) 0.06 H Absolute Neuts (auto) 9.9 H Absolute Nucleated RBC 0.000 Nucleated RBC % 0.0 Sodium 140 Potassium 3.8 Chloride 107 Carbon Dioxide 22 Anion Gap 11 BUN 24 H D Creatinine 1.86 H Estim Creat Clear Calc 25 Estimated GFR 35 L Glucose 116 H Calcium 8.8 Total Bilirubin 0.5 AST 31 ALT 19 Alkaline Phosphatase 143 H Total Protein 8.0 Albumin 4.1 Quality VTE Prophylaxis VTE prophylaxis: mechanical ordered and pharmacologic ordered
--- NOTE | 2025-02-09 14:21 | PCOTNOTE ---
Attempted OT evaluation 1421. RN reported patient not appropriate at this time due to increased agitation.
[2025-02-09] MEDS: DICLOFENAC SODIUM 1% 100 GM GEL (*BKC) 1 APPLIC TOPICAL (17:28)
[2025-02-10] VITALS (15 sets, daily range): BP systolic 128–154; BP diastolic 46–67; PULSE 56–95; RESP 12–24; TEMP 36.3–37; O2SAT 97–100
[2025-02-10 04:45] LABS: Basophils Absolute Auto 0.1 K/mm3 (0.0-0.1); Basophils Percent Auto 0.4 % (0.2-1.2); Eosinophils Absolute Auto 0.3 K/mm3 (0-0.3); Eosinophils Percent Auto 2.9 % (0-4.4); Hematocrit 41.4 % (42.0-52.0); Hemoglobin 13.7 g/dL (14.0-18.0); Immature Granulocyte Absolute 0.04 K/mm3 (0.00-0.031); Immature Granulocyte Percent A 0.3 % (0-0.5); Lymphocytes Absolute Auto 2.31 K/mm3 (0.9-3.2); Lymphocytes Percent Auto 19.6 % (18.3-44.2); Mean Corpuscular HGB Conc 33.1 g/dl (32-36); Mean Corpuscular Hemoglobin 30.4 pg (26-34); Mean Corpuscular Volume 91.8 fl (80-100); Mean Platelet Volume 9.9 fl (7.4-10.4); Monocytes Absolute Auto 1.2 K/mm3 (0.1-0.6); Neutrophils Absolute Auto 7.9 K/mm3 (1.3-6.7); Neutrophils Percent Auto 66.8 % (45.5-73.1); Platelet Count Result 332 k/mm3 (150-375); Red Blood Count 4.51 M/mm3 (4.6-6.20); Red Cell Distribution Width 14.5 % (11.5-14.5); White Blood Count 11.8 K/mm3 (4.5-10.0)
[2025-02-10 05:13] LABS: Alanine Aminotransferase 15 U/L (6-50); Albumin Level 4.1 g/dL (3.5-5.1); Alkaline Phosphatase 128 U/L (38-126); Anion Gap 15 mmol/L (4-12); Aspartate Amino Transferase 30 U/L (17-59); Bilirubin,Total 0.7 mg/dL (0.2-1.3); Blood Urea Nitrogen 26 mg/dL (9-20); Calcium 8.9 mg/dL (8.4-10.2); Carbon Dioxide 17 mmol/L (22-30); Chloride 109 mmol/L (98-107); Estimated CRCL calculation 23 ml/min; Estimated Glomerular Filt Rate 31; Glucose 97 mg/dL (65-110); Potassium 3.8 mmol/L (3.4-5.0); Sodium 141 mmol/L (137-145)
[2025-02-10] MEDS: lisinopriL 10 MG TABLET PO (09:30)
[2025-02-10] MEDS: CHOLECALCIFEROL 1,000 UNITS TABLET 1000 UNITS PO (09:30)
[2025-02-10] MEDS: HEPARIN SODIUM 5,000 UNITS/ML VIAL 5000 UNITS SUB-Q ×2 (09:30→21:37)
[2025-02-10] MEDS: amLODIPine BESYLATE 10 MG TABLET PO (09:30)
[2025-02-10] MEDS: DICLOFENAC SODIUM 1% 100 GM GEL (*BKC) 1 APPLIC TOPICAL ×2 (09:37→13:46)
[2025-02-10] MEDS: ACETAMINOPHEN 325 MG TABLET 650 MG PO (10:48)
--- NOTE | 2025-02-10 13:07 | PC.NURSE ---
Updated granddaughter, Petra, via telephone about patient condition and plan of care.
--- NOTE | 2025-02-10 17:21 | PM.IMPN ---
Progress Note: A&P Assessment and Plan (1) Acute metabolic encephalopathy: Code(s): G93.41 - Metabolic encephalopathy Status: Acute Assessment and Plan: Patient presents with altered mental status. CT brain showing no acute findings. CT cervical spine showing no acute osseous abnormalities. WBC essentially normal. ABG 7.39/33/68 on RA. TSH normal. Lactic normal. Ammonia negative. B12 311 (MMA ordered). VitD 19.6 UDS negative. Alcohol, Acet and Salicylate level negative. COVID, Influenza and RSV PCR negative. UA consistent with UTI; Blood and Urine cultures collected. Rocephin started. UCx negative BCx NGTD Related to medications (narcotics, Ambien) and/or DAVIDSON and/or urine retention. Mental status better. Monitor for now. Follow up on cultures. 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 EKG initially showing 1st degree AVB. Repeat EKG showing 2nd degree AVB Type I. Echo showing normal biventricular size and systolic fxn, EF 65-70% and no significant valvular disease. He was on atenolol on admission but this was stopped. No plans on resuming this. Cardiology consulted with consideration of PM if his bradycardia does not improve. 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 Distended bladder which could be due to chronic outlet obstruction from the enlarged prostate. Nichole placed for retention. Retention could be related to recent urologic procedure and/or recent narcotics. Cr was 2.7 on admission and now trending down since Nichole in place. Metabolic mild gap acidosis noted felt related to the DAVIDSON. Baseline Cr unknown but suspect some CKD given the renal atrophy. Good UOP. Follow UOP, electrolytes and renal fxn. Plan for voiding trial prior to discharge when he is more awake and alert. (4) Urinary retention: Code(s): R33.9 - Retention of urine, unspecified Status: Acute Assessment and Plan: As above (5) Left knee pain: Code(s): M25.562 - Pain in left knee Status: Acute Assessment and Plan: - XR knee LT 3V: No acute osseous abnormality left knee. - PT/OT eval - Pt denies any SNF or HH - To be discharged after cleared by PT/OT (6) Acute UTI: Code(s): N39.0 - Urinary tract infection, site not specified Status: Acute Assessment and Plan: UA was consistent with UTI. UCx collected. Rocephin started. UCx negative. UTI ruled out (7) Hypertension: Code(s): I10 - Essential (primary) hypertension Status: Acute Assessment and Plan: Patient's blood pressure was reviewed on 02/08 Blood pressure remains mildly elevated Lisinopril and Norvasc resumed Continue to monitor (8) Thyroid nodule: Code(s): E04.1 - Nontoxic single thyroid nodule Status: Acute Assessment and Plan: CTA chest showing multinodular goiter with up to 3.6 cm mass in the left thyroid lobe. TSH normal. Plan for thyroid US as outpatient. (9) BPH (benign prostatic hyperplasia): Code(s): N40.0 - Benign prostatic hyperplasia without lower urinary tract symptoms Status: Acute Assessment and Plan: Stable. Terazosin on hold. Plan Patient is very hard of hearing as he left his hearing add at home, he presented with AMS change possibly 2/2 opiods, he mentation is improving, recently patient had a urological procedure outside, had urinary retention and patient has penile implant and it was difficulty to place Nichole, there is was concern his hypersomnolence and AMS may be related to bradycardia was seen by asbestos removal worker suspect 2/2 atenolol which was discountined, patient HR and BP more stable now and his mentation is improving. patient urine was suspicious for UTI patien was started on Rocephin, will follow up urine culture. Code status - Full VTE prophylaxis - SCDs; TANA Subjective Date/time seen: 02/10/25 17:21 Interval history: 89yo male with BPH here for altered mental status. He had recently underwent a urological procedure and was sent home with opioids for pain control. Complains of left knee pain after a fall prior to admission. No CP or SOB. Denies using narcotics at home. No n/v. Eating okay. no dysuria or heamturia prior to admission. No urine retention symptoms prior to admin. Patient sitting in chair besides bed at time of examination. Cardiology signed off on 02/08 with careful instructions for the patient to followup with his office in the outpatient setting for eventual pacemaker placement. At this time patient denies any chest pain, shortness of breath, n/v, abdominal pain. He does still complain of left knee pain and struggled with physical therapy exercises. Pt determined not to be safe for discharge at this time as he lives with a roommate and would need additional services to assist with ADLs. Working with care coordination regarding possible SNF or HH to be set up. I was called to the floor as the patient was getting very agitated regarding having to stay in the hospital but we had a long discussion regarding the benefit of staying the hospital for the time being while working with PT/OT to be able to become independent for at home mobility or so that home health can be set up. Pt was amenable to this plan and will plan for possible discharge tomorrow pending HH or placement. Patient is very hard of hearing as he left his hearing add at home, he presented with AMS change possibly 2/2 opiods, he mentation is improving, recently patient had a urological procedure outside, had urinary retention and patient has penile implant and it was difficulty to place Nichole, there is was concern his hypersomnolence and AMS may be related to bradycardia was seen by asbestos removal worker suspect 2/2 atenolol which was discountined, patient HR and BP more stable now and his mentation is improving. patient urine was suspicious for UTI patien was started on Rocephin, will follow up urine culture. Review of Systems Review of Systems: ROS unobtainable: Yes unobtainable due to mental status Exam Narrative: Patient is comfortable, NAD HEENT: eyes are clear and none icteric LUNGS:CTA HEART: RR S1S2 ABD: BS+, Soft and nontender Lower extremities: no edema SKIN: nonjaundiced Neuro: grossly intact. Objective Data Vital Signs Vital Signs: Vital Signs - 24 hr 02/09/25 18:00 02/09/25 19:29 02/09/25 20:00 Temperature 36.8 C Pulse Rate 77 100 91 Respiratory Rate 17 17 Blood Pressure 173/79 H Pulse Oximetry 96 96 Oxygen Delivery Room Air 02/09/25 20:00 02/09/25 23:43 02/09/25 23:44 Temperature Pulse Rate 91 63 63 Respiratory Rate 17 Blood Pressure Pulse Oximetry 96 Oxygen Delivery Room Air 02/10/25 00:00 02/10/25 03:40 02/10/25 04:00 Temperature 36.4 C L 36.7 C Pulse Rate 84 84 67 Respiratory Rate 17 18 Blood Pressure 136/67 128/65 Pulse Oximetry 97 99 Oxygen Delivery 02/10/25 04:00 02/10/25 06:00 02/10/25 08:00 Temperature 36.4 C L Pulse Rate 67 67 73 Respiratory Rate 18 24 H Blood Pressure 144/54 H Pulse Oximetry 99 99 Oxygen Delivery Room Air 02/10/25 08:00 02/10/25 10:00 02/10/25 11:56 Temperature 36.5 C Pulse Rate 95 70 82 Respiratory Rate 12 Blood Pressure 145/61 H Pulse Oximetry 100 Oxygen Delivery 02/10/25 12:00 02/10/25 14:00 02/10/25 15:48 Temperature Pulse Rate 83 83 Respiratory Rate Blood Pressure Pulse Oximetry Oxygen Delivery Room Air 02/10/25 15:54 Temperature 36.3 C L Pulse Rate 60 Respiratory Rate 16 Blood Pressure 145/51 H Pulse Oximetry 100 Oxygen Delivery Intake/Output Intake/Output: Intake & Output 02/07/25 02/08/25 02/09/25 02/10/25 23:59 23:59 23:59 23:59 Intake Total 950 1830 693 480 Output Total 2150 2930 890 400 Balance -1200 -1100 -197 80 Meds/Results Medications: Active Medications Generic Name Dose Route Start Last Admin Trade Name Freq PRN Reason Stop Dose Admin Acetaminophen 650 mg 02/06/25 19:43 02/10/25 10:48 Acetaminophen 325 Mg Tablet PO 650 mg Q4H PRN Administration Mild Pain (1-3) or Fever Amlodipine Besylate 10 mg 02/08/25 09:00 02/10/25 09:30 Amlodipine Besylate 10 Mg Tablet PO 10 mg DAILY TANA Administration Bisacodyl 10 mg 02/06/25 19:43 Bisacodyl 10 Mg Suppository RECTAL ONCE PRN Constipation Cyanocobalamin 1,000 mcg 02/08/25 09:00 02/08/25 09:41 Cyanocobalamin Inj 1,000 Mcg/Ml Vial IM 1,000 mcg WEEKLY TANA Administration Diclofenac Sodium 1 applic 02/09/25 14:23 02/10/25 13:46 Diclofenac Sodium 1% 100 Gm Gel (*Bkc) TOPICAL 1 applic QID PRN Administration knee pain Heparin Sodium (Porcine) 5,000 units 02/06/25 21:00 02/10/25 09:30 Heparin Sodium 5,000 Units/Ml Vial SUB-Q 5,000 units Q12HR TANA Administration Ceftriaxone Sodium 1 gm in 50 mls @ 100 mls/hr 02/07/25 18:00 02/09/25 17:40 Rocephin 1 Gm/Ns 50 Ml IVPB Infused Q24H TANA Infusion Lisinopril 10 mg 02/07/25 15:05 02/10/25 09:30 Lisinopril 10 Mg Tablet PO 10 mg DAILY TANA Administration Naloxone HCl 0.1 mg 02/06/25 19:43 Naloxone Hcl 0.4 Mg/Ml Vial IV PUSH Q2M PRN Opiate Reversal Prochlorperazine Edisylate 10 mg 02/06/25 19:43 Prochlorperazine Edisylate 10 Mg/2 Ml Vial IV PUSH Q6H PRN Nausea And Vomiting Vitamin D 1,000 units 02/08/25 09:00 02/10/25 09:30 Cholecalciferol 1,000 Units Tablet PO 1,000 units DAILY TANA Administration Radiology Results: ITS Impressions Head CT 02/06/25 16:43 IMPRESSION: No acute intracranial findings. Chest/Abdomen/Pelvis CTA 02/06/25 16:45 IMPRESSION: 1. Dependent atelectasis in both lungs. No aortic aneurysm, dissection or other acute cardiopulmonary disease. 2. Cardia megaly. 3. Possible small sliding-type hiatal hernia. 4. Pneumobilia likely related to a distal biliary stent. 5. Edematous wall thickening of the gallbladder but without dilation or pericholecystic inflammatory stranding to suggest acute cholecystitis is more likely related to either chronic cholecystitis, heart failure, renal failure or other generalized edema forming states. 6. 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 7. 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 8. Distended bladder which could be due to chronic outlet obstruction from the enlarged prostate. Cervical Spine CT 02/06/25 16:53 IMPRESSION: No acute osseous abnormality cervical spine. Multilevel degenerative disc disease. Postoperative changes. Knee X-Ray 02/08/25 13:40 IMPRESSION: No acute osseous abnormality left knee. Upper Quadrant Ultrasound 02/08/25 20:13 Impression: Mild gallbladder wall thickening. Questionable gallstone. Consider MR/MRCP as indicated. Labs Labs: Laboratory Results - last 24 hr 02/10/25 04:19 WBC 11.8 H RBC 4.51 L Hgb 13.7 L Hct 41.4 L MCV 91.8 MCH 30.4 MCHC 33.1 RDW 14.5 Plt Count 332 MPV 9.9 Immature Gran % (Auto) 0.3 Neut % (Auto) 66.8 Lymph % (Auto) 19.6 [place] % (Auto) 10.0 H Eos % (Auto) 2.9 Baso % (Auto) 0.4 Lymph # (Auto) 2.31 [place]borne # (Auto) 1.2 H Eos # (Auto) 0.3 Baso # (Auto) 0.1 Abs Immat Gran (auto) 0.04 H Absolute Neuts (auto) 7.9 H Absolute Nucleated RBC 0.000 Nucleated RBC % 0.0 Sodium 141 Potassium 3.8 Chloride 109 H Carbon Dioxide 17 L Anion Gap 15 H BUN 26 H Creatinine 2.03 H Estim Creat Clear Calc 23 Estimated GFR 31 L Glucose 97 Calcium 8.9 Total Bilirubin 0.7 AST 30 ALT 15 Alkaline Phosphatase 128 H Total Protein 8.0 Albumin 4.1 Quality VTE Prophylaxis VTE prophylaxis: mechanical ordered and pharmacologic ordered
--- NOTE | 2025-02-10 20:22 | ECG_ITS ---
Test Date: 2025-02-10 20:36:57 Measurements Intervals [place] Rate: 53 P: 0 AL: 0 QRS: -7 QRSD: 145 T: 54 QT: 465 QTc: 438 Interpretive Statements SINUS RHYTHM WITH SECOND DEGREE AV BLOCK, TYPE I OR II (2:1 AV BLOCK) WITH ATRIAL PREMATURE COMPLEXES RIGHT BUNDLE BRANCH BLOCK ABNORMAL ECG Compared to ECG 02/07/2025 09:44:25 HEART RATE HAS INCREASED Electronically Signed On 02-11-2025 06:58:36 CDT by Frederick Fried D.O.
[2025-02-11] VITALS (11 sets, daily range): BP systolic 128–152; BP diastolic 57–76; PULSE 46–92; RESP 8–18; TEMP 36.1–36.9; O2SAT 94–100
[2025-02-11] MEDS: ACETAMINOPHEN 325 MG TABLET 650 MG PO ×4 (00:19→20:46)
[2025-02-11] MEDS: DICLOFENAC SODIUM 1% 100 GM GEL (*BKC) 1 APPLIC TOPICAL ×3 (00:20→20:42)
[2025-02-11 04:29] LABS: Basophils Absolute Auto 0.1 K/mm3 (0.0-0.1); Basophils Percent Auto 0.6 % (0.2-1.2); Eosinophils Absolute Auto 0.5 K/mm3 (0-0.3); Eosinophils Percent Auto 4.9 % (0-4.4); Hematocrit 39.1 % (42.0-52.0); Hemoglobin 12.9 g/dL (14.0-18.0); Immature Granulocyte Absolute 0.02 K/mm3 (0.00-0.031); Immature Granulocyte Percent A 0.2 % (0-0.5); Lymphocytes Absolute Auto 2.63 K/mm3 (0.9-3.2); Mean Corpuscular Hemoglobin 29.9 pg (26-34); Mean Corpuscular Volume 90.5 fl (80-100); Mean Platelet Volume 9.9 fl (7.4-10.4); Monocytes Absolute Auto 1.1 K/mm3 (0.1-0.6); Neutrophils Absolute Auto 5.8 K/mm3 (1.3-6.7); Neutrophils Percent Auto 57.3 % (45.5-73.1); Platelet Count Result 288 k/mm3 (150-375); Red Blood Count 4.32 M/mm3 (4.6-6.20); Red Cell Distribution Width 14.5 % (11.5-14.5); White Blood Count 10.1 K/mm3 (4.5-10.0)
[2025-02-11 04:42] LABS: Alanine Aminotransferase 15 U/L (6-50); Albumin Level 3.6 g/dL (3.5-5.1); Alkaline Phosphatase 107 U/L (38-126); Anion Gap 12 mmol/L (4-12); Aspartate Amino Transferase 28 U/L (17-59); Bilirubin,Total 0.5 mg/dL (0.2-1.3); Blood Urea Nitrogen 31 mg/dL (9-20); Calcium 8.4 mg/dL (8.4-10.2); Carbon Dioxide 20 mmol/L (22-30); Chloride 107 mmol/L (98-107); Estimated CRCL calculation 23 ml/min; Estimated Glomerular Filt Rate 31; Glucose 94 mg/dL (65-110); Potassium 3.8 mmol/L (3.4-5.0); Sodium 139 mmol/L (137-145)
[2025-02-11] MEDS: amLODIPine BESYLATE 10 MG TABLET PO (08:35)
[2025-02-11] MEDS: lisinopriL 10 MG TABLET PO (08:35)
[2025-02-11] MEDS: HEPARIN SODIUM 5,000 UNITS/ML VIAL 5000 UNITS SUB-Q ×2 (08:35→20:46)
[2025-02-11] MEDS: CHOLECALCIFEROL 1,000 UNITS TABLET 1000 UNITS PO (08:35)
[2025-02-11 12:03] LABS: Methylmalonic Acid 474 nmol/L (85-423)
[2025-02-11] MEDS: CEPHALEXIN 250 MG CAPSULE PO (18:25)
--- NOTE | 2025-02-11 18:55 | P.PNIM_ITS ---
Progress Note: A&P Assessment and Plan (1) Acute metabolic encephalopathy: Code(s): G93.41 - Metabolic encephalopathy Status: Acute Assessment and Plan: Patient presents with altered mental status. CT brain showing no acute findings. CT cervical spine showing no acute osseous abnormalities. WBC essentially normal. ABG 7.39/33/68 on RA. TSH normal. Lactic normal. Ammonia negative. B12 311 (MMA ordered). VitD 19.6 UDS negative. Alcohol, Acet and Salicylate level negative. COVID, Influenza and RSV PCR negative. UA consistent with UTI; Blood and Urine cultures collected. Rocephin started. UCx negative BCx NGTD Related to medications (narcotics, Ambien) and/or DAVIDSON and/or urine retention. Mental status better. Monitor for now. Follow up on cultures. 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 EKG initially showing 1st degree AVB. Repeat EKG showing 2nd degree AVB Type I. Echo showing normal biventricular size and systolic fxn, EF 65-70% and no significant valvular disease. He was on atenolol on admission but this was stopped. No plans on resuming this. Cardiology consulted with consideration of PM if his bradycardia does not improve. 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 Distended bladder which could be due to chronic outlet obstruction from the enlarged prostate. Nichole placed for retention. Retention could be related to recent urologic procedure and/or recent narcotics. Cr was 2.7 on admission and now trending down since Nichole in place. Metabolic mild gap acidosis noted felt related to the DAVIDSON. Baseline Cr unknown but suspect some CKD given the renal atrophy. Good UOP. Follow UOP, electrolytes and renal fxn. Plan for voiding trial prior to discharge when he is more awake and alert. (4) Urinary retention: Code(s): R33.9 - Retention of urine, unspecified Status: Acute Assessment and Plan: As above (5) Left knee pain: Code(s): M25.562 - Pain in left knee Status: Acute Assessment and Plan: - XR knee LT 3V: No acute osseous abnormality left knee. - PT/OT eval - Pt denies any SNF or HH - To be discharged after cleared by PT/OT (6) Acute UTI: Code(s): N39.0 - Urinary tract infection, site not specified Status: Acute Assessment and Plan: UA was consistent with UTI. UCx collected. Rocephin started. UCx negative. UTI ruled out (7) Hypertension: Code(s): I10 - Essential (primary) hypertension Status: Acute Assessment and Plan: Patient's blood pressure was reviewed on 02/08 Blood pressure remains mildly elevated Lisinopril and Norvasc resumed Continue to monitor (8) Thyroid nodule: Code(s): E04.1 - Nontoxic single thyroid nodule Status: Acute Assessment and Plan: CTA chest showing multinodular goiter with up to 3.6 cm mass in the left thyroid lobe. TSH normal. Plan for thyroid US as outpatient. (9) BPH (benign prostatic hyperplasia): Code(s): N40.0 - Benign prostatic hyperplasia without lower urinary tract symptoms Status: Acute Assessment and Plan: Stable. Terazosin on hold. Plan Patient is very hard of hearing as he left his hearing add at home, he presented with AMS change possibly 2/2 opiods, he mentation is improving, recently patient had a urological procedure outside, had urinary retention and patient has penile implant and it was difficulty to place Nichole, there is was concern his hypersomnolence and AMS may be related to bradycardia was seen by financial foundations associate suspect 2/2 atenolol which was discountined, patient HR and BP more stable now and his mentation is improving. patient urine was suspicious for UTI patien was started on Rocephin, will follow up urine culture. Code status - Full VTE prophylaxis - SCDs; TANA Subjective Date/time seen: 02/11/25 18:55 Interval history: 89yo male with BPH here for altered mental status. He had recently underwent a urological procedure and was sent home with opioids for pain control. Complains of left knee pain after a fall prior to admission. No CP or SOB. Denies using narcotics at home. No n/v. Eating okay. no dysuria or heamturia prior to admission. No urine retention symptoms prior to admin. Patient sitting in chair besides bed at time of examination. Cardiology signed off on 02/08 with careful instructions for the patient to followup with his office in the outpatient setting for eventual pacemaker placement. At this time patient denies any chest pain, shortness of breath, n/v, abdominal pain. He does still complain of left knee pain and struggled with physical therapy exercises. Pt determined not to be safe for discharge at this time as he lives with a roommate and would need additional services to assist with ADLs. Working with care coordination regarding possible SNF or HH to be set up. I was called to the floor as the patient was getting very agitated regarding having to stay in the hospital but we had a long discussion regarding the benefit of staying the hospital for the time being while working with PT/OT to be able to become independent for at home mobility or so that home health can be set up. Pt was amenable to this plan and will plan for possible discharge tomorrow pending HH or placement. Patient is very hard of hearing as he left his hearing add at home, he presented with AMS change possibly 2/2 opiods, he mentation is improving, recently patient had a urological procedure outside, had urinary retention and patient has penile implant and it was difficulty to place Nichole, there is was concern his hypersomnolence and AMS may be related to bradycardia was seen by financial [employer] associate suspect 2/2 atenolol which was discountined, patient HR and BP more stable now and his mentation is improving. patient urine was suspicious for UTI patien was started on Rocephin, will follow up urine culture. Review of Systems Review of Systems: All systems reviewed & are unremarkable except as noted in HPI and below Exam Narrative: Patient is comfortable, NAD HEENT: eyes are clear and none icteric LUNGS:CTA HEART: RR S1S2 ABD: BS+, Soft and nontender Lower extremities: no edema SKIN: nonjaundiced Neuro: grossly intact. Objective Data Vital Signs Vital Signs: Vital Signs - 24 hr 02/10/25 19:31 02/10/25 20:00 02/10/25 20:00 Temperature 36.6 C Pulse Rate 59 L 56 L 56 L Respiratory Rate 17 17 Blood Pressure 154/49 H Pulse Oximetry 99 99 Oxygen Delivery Room Air 02/10/25 23:41 02/11/25 00:00 02/11/25 00:00 Temperature 37.0 C Pulse Rate 59 L 58 L 58 L Respiratory Rate 17 17 Blood Pressure 146/46 H Pulse Oximetry 98 98 Oxygen Delivery Room Air 02/11/25 02:00 02/11/25 03:31 02/11/25 03:38 Temperature 36.9 C Pulse Rate 58 L 55 L 55 L Respiratory Rate 18 18 Blood Pressure 128/65 Pulse Oximetry 97 97 Oxygen Delivery Room Air 02/11/25 03:38 02/11/25 06:00 02/11/25 08:00 Temperature 36.5 C Pulse Rate 55 L 47 L 82 Respiratory Rate 18 Blood Pressure 152/68 H Pulse Oximetry 100 Oxygen Delivery 02/11/25 08:00 02/11/25 08:00 02/11/25 10:00 Temperature Pulse Rate 82 92 85 Respiratory Rate 18 Blood Pressure Pulse Oximetry 100 Oxygen Delivery Room Air 02/11/25 12:00 02/11/25 12:00 02/11/25 12:00 Temperature 36.6 C Pulse Rate 69 73 73 Respiratory Rate 18 18 Blood Pressure 128/57 L Pulse Oximetry 99 100 Oxygen Delivery Room Air 02/11/25 16:00 02/11/25 16:00 Temperature 36.8 C Pulse Rate 60 78 Respiratory Rate 8 L Blood Pressure 148/60 H Pulse Oximetry 98 Oxygen Delivery Intake/Output Intake/Output: Intake & Output 02/08/25 02/09/25 02/10/25 02/11/25 23:59 23:59 23:59 23:59 Intake Total 3061 105 2106 1720 Output Total 2930 677 032 3226 Balance -1100 -197 270 470 Meds/Results Medications: Active Medications Generic Name Dose Route Start Last Admin Trade Name Freq PRN Reason Stop Dose Admin Acetaminophen 650 mg 02/06/25 19:43 02/11/25 15:14 Acetaminophen 325 Mg Tablet PO 650 mg Q4H PRN Administration Mild Pain (1-3) or Fever Amlodipine Besylate 10 mg 02/08/25 09:00 02/11/25 08:35 Amlodipine Besylate 10 Mg Tablet PO 10 mg DAILY TANA Administration Bisacodyl 10 mg 02/06/25 19:43 Bisacodyl 10 Mg Suppository RECTAL ONCE PRN Constipation Cephalexin HCl 250 mg 02/11/25 19:00 02/11/25 18:25 Cephalexin 250 Mg Capsule PO 02/13/25 09:01 250 mg Q12HR TANA Administration Cyanocobalamin 1,000 mcg 02/08/25 09:00 02/08/25 09:41 Cyanocobalamin Inj 1,000 Mcg/Ml Vial IM 1,000 mcg WEEKLY TANA Administration Diclofenac Sodium 1 applic 02/09/25 14:23 02/11/25 08:45 Diclofenac Sodium 1% 100 Gm Gel (*Bkc) TOPICAL 1 applic QID PRN Administration knee pain Heparin Sodium (Porcine) 5,000 units 02/06/25 21:00 02/11/25 08:35 Heparin Sodium 5,000 Units/Ml Vial SUB-Q 5,000 units Q12HR TANA Administration Lisinopril 10 mg 02/07/25 15:05 02/11/25 08:35 Lisinopril 10 Mg Tablet PO 10 mg DAILY TANA Administration Naloxone HCl 0.1 mg 02/06/25 19:43 Naloxone Hcl 0.4 Mg/Ml Vial IV PUSH Q2M PRN Opiate Reversal Prochlorperazine Edisylate 10 mg 02/06/25 19:43 Prochlorperazine Edisylate 10 Mg/2 Ml Vial IV PUSH Q6H PRN Nausea And Vomiting Vitamin D 1,000 units 02/08/25 09:00 02/11/25 08:35 Cholecalciferol 1,000 Units Tablet PO 1,000 units DAILY TANA Administration Radiology Results: ITS Impressions Head CT 02/06/25 16:43 IMPRESSION: No acute intracranial findings. Chest/Abdomen/Pelvis CTA 02/06/25 16:45 IMPRESSION: 1. Dependent atelectasis in both lungs. No aortic aneurysm, dissection or other acute cardiopulmonary disease. 2. Cardia megaly. 3. Possible small sliding-type hiatal hernia. 4. Pneumobilia likely related to a distal biliary stent. 5. Edematous wall thickening of the gallbladder but without dilation or pericholecystic inflammatory stranding to suggest acute cholecystitis is more likely related to either chronic cholecystitis, heart failure, renal failure or other generalized edema forming states. 6. 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 7. 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 8. Distended bladder which could be due to chronic outlet obstruction from the enlarged prostate. Cervical Spine CT 02/06/25 16:53 IMPRESSION: No acute osseous abnormality cervical spine. Multilevel degenerative disc disease. Postoperative changes. Knee X-Ray 02/08/25 13:40 IMPRESSION: No acute osseous abnormality left knee. Upper Quadrant Ultrasound 02/08/25 20:13 Impression: Mild gallbladder wall thickening. Questionable gallstone. Consider MR/MRCP as indicated. Labs Labs: Laboratory Results - last 24 hr 02/08/25 02/11/25 04:46 04:07 WBC 10.1 H RBC 4.32 L Hgb 12.9 L Hct 39.1 L MCV 90.5 MCH 29.9 MCHC 33.0 RDW 14.5 Plt Count 288 MPV 9.9 Immature Gran % (Auto) 0.2 Neut % (Auto) 57.3 Lymph % (Auto) 26.0 [place]irt % (Auto) 11.0 H Eos % (Auto) 4.9 H Baso % (Auto) 0.6 Lymph # (Auto) 2.63 Wirt # (Auto) 1.1 H Eos # (Auto) 0.5 H Baso # (Auto) 0.1 Abs Immat Gran (auto) 0.02 Absolute Neuts (auto) 5.8 Absolute Nucleated RBC 0.000 Nucleated RBC % 0.0 Sodium 139 Potassium 3.8 Chloride 107 Carbon Dioxide 20 L Anion Gap 12 BUN 31 H Creatinine 2.05 H Estim Creat Clear Calc 23 Estimated GFR 31 L Glucose 94 Calcium 8.4 Total Bilirubin 0.5 AST 28 ALT 15 Alkaline Phosphatase 107 Total Protein 7.0 Albumin 3.6 Methylmalonic Acid 474 H Quality VTE Prophylaxis VTE prophylaxis: mechanical ordered and pharmacologic ordered
[2025-02-12] VITALS (7 sets, daily range): BP systolic 133–159; BP diastolic 49–95; PULSE 44–85; RESP 18–24; TEMP 36.3–36.6; O2SAT 95–100
[2025-02-12] MEDS: ACETAMINOPHEN 325 MG TABLET 650 MG PO ×5 (01:18→21:39)
[2025-02-12] MEDS: DICLOFENAC SODIUM 1% 100 GM GEL (*BKC) 1 APPLIC TOPICAL ×3 (01:21→21:45)
[2025-02-12 04:17] LABS: Basophils Absolute Auto 0.1 K/mm3 (0.0-0.1); Basophils Percent Auto 0.5 % (0.2-1.2); Eosinophils Absolute Auto 0.4 K/mm3 (0-0.3); Eosinophils Percent Auto 4.3 % (0-4.4); Hemoglobin 12.4 g/dL (14.0-18.0); Immature Granulocyte Absolute 0.02 K/mm3 (0.00-0.031); Immature Granulocyte Percent A 0.2 % (0-0.5); Lymphocytes Absolute Auto 2.25 K/mm3 (0.9-3.2); Lymphocytes Percent Auto 24.1 % (18.3-44.2); Mean Corpuscular HGB Conc 31.8 g/dl (32-36); Mean Corpuscular Hemoglobin 29.4 pg (26-34); Mean Corpuscular Volume 92.4 fl (80-100); Mean Platelet Volume 9.8 fl (7.4-10.4); Monocytes Absolute Auto 0.9 K/mm3 (0.1-0.6); Monocytes Percent Auto 9.4 % (2.6-8.5); Neutrophils Absolute Auto 5.7 K/mm3 (1.3-6.7); Neutrophils Percent Auto 61.5 % (45.5-73.1); Platelet Count Result 294 k/mm3 (150-375); Red Blood Count 4.22 M/mm3 (4.6-6.20); Red Cell Distribution Width 14.4 % (11.5-14.5); White Blood Count 9.3 K/mm3 (4.5-10.0)
[2025-02-12 04:31] LABS: Alanine Aminotransferase 15 U/L (6-50); Albumin Level 3.6 g/dL (3.5-5.1); Alkaline Phosphatase 104 U/L (38-126); Anion Gap 8 mmol/L (4-12); Aspartate Amino Transferase 30 U/L (17-59); Bilirubin,Total 0.6 mg/dL (0.2-1.3); Blood Urea Nitrogen 32 mg/dL (9-20); Calcium 8.5 mg/dL (8.4-10.2); Carbon Dioxide 24 mmol/L (22-30); Chloride 107 mmol/L (98-107); Estimated CRCL calculation 23 ml/min; Estimated Glomerular Filt Rate 31; Glucose 99 mg/dL (65-110); Potassium 4.1 mmol/L (3.4-5.0); Sodium 139 mmol/L (137-145)
[2025-02-12] MEDS: amLODIPine BESYLATE 10 MG TABLET PO (08:29)
[2025-02-12] MEDS: CEPHALEXIN 250 MG CAPSULE PO ×2 (08:30→21:39)
[2025-02-12] MEDS: CHOLECALCIFEROL 1,000 UNITS TABLET 1000 UNITS PO (08:30)
[2025-02-12] MEDS: HEPARIN SODIUM 5,000 UNITS/ML VIAL 5000 UNITS SUB-Q ×2 (08:31→21:40)
[2025-02-12] MEDS: lisinopriL 10 MG TABLET PO (08:31)
--- NOTE | 2025-02-12 10:11 | PC.NURSE ---
On 02/12/25, the student, [Scott Gross], provided care and completed [facility] documentation on this patient. I have reviewed the student's documentation and agree with the findings.
--- NOTE | 2025-02-12 16:48 | P.PNIM_ITS ---
Progress Note: A&P Assessment and Plan (1) Acute metabolic encephalopathy: Code(s): G93.41 - Metabolic encephalopathy Status: Acute Assessment and Plan: Patient presents with altered mental status. CT brain showing no acute findings. CT cervical spine showing no acute osseous abnormalities. WBC essentially normal. ABG 7.39/33/68 on RA. TSH normal. Lactic normal. Ammonia negative. B12 311 (MMA ordered). VitD 19.6 UDS negative. Alcohol, Acet and Salicylate level negative. COVID, Influenza and RSV PCR negative. UA consistent with UTI; Blood and Urine cultures collected. Rocephin started. UCx negative BCx NGTD Related to medications (narcotics, Ambien) and/or DAVIDSON and/or urine retention. Mental status better. Monitor for now. Follow up on cultures. 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 EKG initially showing 1st degree AVB. Repeat EKG showing 2nd degree AVB Type I. Echo showing normal biventricular size and systolic fxn, EF 65-70% and no significant valvular disease. He was on atenolol on admission but this was stopped. No plans on resuming this. Cardiology consulted with consideration of PM if his bradycardia does not improve. 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 Distended bladder which could be due to chronic outlet obstruction from the enlarged prostate. Nichole placed for retention. Retention could be related to recent urologic procedure and/or recent narcotics. Cr was 2.7 on admission and now trending down since Nichole in place. Metabolic mild gap acidosis noted felt related to the DAVIDSON. Baseline Cr unknown but suspect some CKD given the renal atrophy. Good UOP. Follow UOP, electrolytes and renal fxn. Plan for voiding trial prior to discharge when he is more awake and alert. (4) Urinary retention: Code(s): R33.9 - Retention of urine, unspecified Status: Acute Assessment and Plan: As above (5) Left knee pain: Code(s): M25.562 - Pain in left knee Status: Acute Assessment and Plan: - XR knee LT 3V: No acute osseous abnormality left knee. - PT/OT eval - Pt denies any SNF or HH - To be discharged after cleared by PT/OT (6) Acute UTI: Code(s): N39.0 - Urinary tract infection, site not specified Status: Acute Assessment and Plan: UA was consistent with UTI. UCx collected. Rocephin started. UCx negative. UTI ruled out (7) Hypertension: Code(s): I10 - Essential (primary) hypertension Status: Acute Assessment and Plan: Patient's blood pressure was reviewed on 02/08 Blood pressure remains mildly elevated Lisinopril and Norvasc resumed Continue to monitor (8) Thyroid nodule: Code(s): E04.1 - Nontoxic single thyroid nodule Status: Acute Assessment and Plan: CTA chest showing multinodular goiter with up to 3.6 cm mass in the left thyroid lobe. TSH normal. Plan for thyroid US as outpatient. (9) BPH (benign prostatic hyperplasia): Code(s): N40.0 - Benign prostatic hyperplasia without lower urinary tract symptoms Status: Acute Assessment and Plan: Stable. Terazosin on hold. Plan Patient is very hard of hearing as he left his hearing add at home, he presented with AMS change possibly 2/2 opioids, he mentation is improving, recently patient had a urological procedure outside, had urinary retention and patient has penile implant and it was difficulty to place Nichole, there is was concern his hypersomnolence and AMS may be related to bradycardia was seen by data analytics developer suspect 2/2 atenolol which was discontinued, patient HR and BP are more stable now and his mentation is improving. patient urine was suspicious for UTI patient was started on Rocephin, urine culture no growth so far, will stop Rocephin and start patient on keflex, will remove Nichole today and have urinate before discharging tomorrow, will monitor. Code status - Full VTE prophylaxis - SCDs; TANA Subjective Date/time seen: 02/12/25 16:48 Interval history: 89yo male with BPH here for altered mental status. He had recently underwent a u rological procedure and was sent home with opioids for pain control. Complains of left knee pain after a fall prior to admission. No CP or SOB. Denies using narcotics at home. No n/v. Eating okay. no dysuria or heamturia prior to admission. No urine retention symptoms prior to admin. Patient sitting in chair besides bed at time of examination. Cardiology signed off on 02/08 with careful instructions for the patient to followup with his office in the outpatient setting for eventual pacemaker placement. At this time patient denies any chest pain, shortness of breath, n/v, abdominal pain. He does still complain of left knee pain and struggled with physical therapy exercises. Pt determined not to be safe for discharge at this time as he lives with a roommate and would need additional services to assist with ADLs. Working with care coordination regarding possible SNF or HH to be set up. I was called to the floor as the patient was getting very agitated regarding having to stay in the hospital but we had a long discussion regarding the benefit of staying the hospital for the time being while working with PT/OT to be able to become independent for at home mobility or so that home health can be set up. Pt was amenable to this plan and will plan for possible discharge tomorrow pending HH or placement. Patient is very hard of hearing as he left his hearing add at home, he presented with AMS change possibly 2/2 opioids, he mentation is improving, recently patient had a urological procedure outside, had urinary retention and patient has penile implant and it was difficulty to place Nichole, there is was concern his hypersomnolence and AMS may be related to bradycardia was seen by data analytics developer suspect 2/2 atenolol which was discontinued, patient HR and BP are more stable now and his mentation is improving. patient urine was suspicious for UTI patient was started on Rocephin, urine culture no growth so far, will stop Rocephin and start patient on keflex, will remove Nichole today and have urinate before discharging tomorrow, will monitor. Review of Systems Review of Systems: ROS unobtainable: Yes unobtainable due to medical condition and unobtainable due to mental status Exam Narrative: Patient is comfortable, NAD HEENT: eyes are clear and none icteric LUNGS:CTA HEART: RR S1S2 ABD: BS+, Soft and nontender Lower extremities: no edema SKIN: nonjaundiced Neuro: grossly intact. Objective Data Vital Signs Vital Signs: Vital Signs - 24 hr 02/11/25 20:00 02/11/25 20:00 02/11/25 23:20 Temperature 36.1 C L Pulse Rate 60 46 L Respiratory Rate 18 Blood Pressure 140/76 Pulse Oximetry 94 Oxygen Delivery Room Air 02/12/25 00:00 02/12/25 04:00 02/12/25 07:55 Temperature 36.6 C Pulse Rate 44 L 54 L 70 Respiratory Rate 20 Blood Pressure 144/88 H Pulse Oximetry 96 Oxygen Delivery 02/12/25 08:00 02/12/25 09:07 02/12/25 15:37 Temperature 36.3 C L Pulse Rate 85 77 Respiratory Rate 20 Blood Pressure 133/95 H Pulse Oximetry 100 Oxygen Delivery Room Air Intake/Output Intake/Output: Intake & Output 02/09/25 02/10/25 02/11/25 02/12/25 23:59 23:59 23:59 23:59 Intake Total 693 1070 1720 610 Output Total 394 837 3013 800 Balance -197 270 470 -190 Meds/Results Medications: Active Medications Generic Name Dose Route Start Last Admin Trade Name Freq PRN Reason Stop Dose Admin Acetaminophen 650 mg 02/06/25 19:43 02/12/25 12:38 Acetaminophen 325 Mg Tablet PO 650 mg Q4H PRN Administration Mild Pain (1-3) or Fever Amlodipine Besylate 10 mg 02/08/25 09:00 02/12/25 08:29 Amlodipine Besylate 10 Mg Tablet PO 10 mg DAILY TANA Administration Bisacodyl 10 mg 02/06/25 19:43 Bisacodyl 10 Mg Suppository RECTAL ONCE PRN Constipation Cephalexin HCl 250 mg 02/11/25 19:00 02/12/25 08:30 Cephalexin 250 Mg Capsule PO 02/13/25 09:01 250 mg Q12HR TANA Administration Cyanocobalamin 1,000 mcg 02/08/25 09:00 02/08/25 09:41 Cyanocobalamin Inj 1,000 Mcg/Ml Vial IM 1,000 mcg WEEKLY TANA Administration Diclofenac Sodium 1 applic 02/09/25 14:23 02/12/25 08:30 Diclofenac Sodium 1% 100 Gm Gel (*Bkc) TOPICAL 1 applic QID PRN Administration knee pain Heparin Sodium (Porcine) 5,000 units 02/06/25 21:00 02/12/25 08:31 Heparin Sodium 5,000 Units/Ml Vial SUB-Q 5,000 units Q12HR TANA Administration Lisinopril 10 mg 02/07/25 15:05 02/12/25 08:31 Lisinopril 10 Mg Tablet PO 10 mg DAILY TANA Administration Naloxone HCl 0.1 mg 02/06/25 19:43 Naloxone Hcl 0.4 Mg/Ml Vial IV PUSH Q2M PRN Opiate Reversal Prochlorperazine Edisylate 10 mg 02/06/25 19:43 Prochlorperazine Edisylate 10 Mg/2 Ml Vial IV PUSH Q6H PRN Nausea And Vomiting Vitamin D 1,000 units 02/08/25 09:00 02/12/25 08:30 Cholecalciferol 1,000 Units Tablet PO 1,000 units DAILY TANA Administration Radiology Results: ITS Impressions Head CT 02/06/25 16:43 IMPRESSION: No acute intracranial findings. Chest/Abdomen/Pelvis CTA 02/06/25 16:45 IMPRESSION: 1. Dependent atelectasis in both lungs. No aortic aneurysm, dissection or other acute cardiopulmonary disease. 2. Cardia megaly. 3. Possible small sliding-type hiatal hernia. 4. Pneumobilia likely related to a distal biliary stent. 5. Edematous wall thickening of the gallbladder but without dilation or pericholecystic inflammatory stranding to suggest acute cholecystitis is more likely related to either chronic cholecystitis, heart failure, renal failure or other generalized edema forming states. 6. 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 7. 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 8. Distended bladder which could be due to chronic outlet obstruction from the enlarged prostate. Cervical Spine CT 02/06/25 16:53 IMPRESSION: No acute osseous abnormality cervical spine. Multilevel degenerative disc disease. Postoperative changes. Knee X-Ray 02/08/25 13:40 IMPRESSION: No acute osseous abnormality left knee. Upper Quadrant Ultrasound 02/08/25 20:13 Impression: Mild gallbladder wall thickening. Questionable gallstone. Consider MR/MRCP as indicated. Abdomen X-Ray 02/12/25 14:17 IMPRESSION: Orientation of the biliary stent is unchanged from recent CT examination dated 02/06/2025, as detailed above. Labs Labs: Laboratory Results - last 24 hr 02/12/25 04:09 WBC 9.3 RBC 4.22 L Hgb 12.4 L Hct 39.0 L MCV 92.4 MCH 29.4 MCHC 31.8 L RDW 14.4 Plt Count 294 MPV 9.8 Immature Gran % (Auto) 0.2 Neut % (Auto) 61.5 Lymph % (Auto) 24.1 [place] % (Auto) 9.4 H Eos % (Auto) 4.3 Baso % (Auto) 0.5 Lymph # (Auto) 2.25 [place] # (Auto) 0.9 H Eos # (Auto) 0.4 H Baso # (Auto) 0.1 Abs Immat Gran (auto) 0.02 Absolute Neuts (auto) 5.7 Absolute Nucleated RBC 0.000 Nucleated RBC % 0.0 Sodium 139 Potassium 4.1 Chloride 107 Carbon Dioxide 24 Anion Gap 8 BUN 32 H Creatinine 2.04 H Estim Creat Clear Calc 23 Estimated GFR 31 L Glucose 99 Calcium 8.5 Total Bilirubin 0.6 AST 30 ALT 15 Alkaline Phosphatase 104 Total Protein 7.0 Albumin 3.6 Quality VTE Prophylaxis VTE prophylaxis: mechanical ordered and pharmacologic ordered
[2025-02-13] MEDS: ACETAMINOPHEN 325 MG TABLET 650 MG PO ×3 (01:30→12:15)
[2025-02-13 05:33] LABS: Basophils Absolute Auto 0.1 K/mm3 (0.0-0.1); Basophils Percent Auto 0.5 % (0.2-1.2); Eosinophils Absolute Auto 0.3 K/mm3 (0-0.3); Eosinophils Percent Auto 2.6 % (0-4.4); Hematocrit 38.5 % (42.0-52.0); Hemoglobin 12.8 g/dL (14.0-18.0); Immature Granulocyte Absolute 0.04 K/mm3 (0.00-0.031); Immature Granulocyte Percent A 0.4 % (0-0.5); Lymphocytes Absolute Auto 2.09 K/mm3 (0.9-3.2); Lymphocytes Percent Auto 20.9 % (18.3-44.2); Mean Corpuscular HGB Conc 33.2 g/dl (32-36); Mean Corpuscular Hemoglobin 30.1 pg (26-34); Mean Corpuscular Volume 90.6 fl (80-100); Mean Platelet Volume 10.2 fl (7.4-10.4); Monocytes Absolute Auto 0.9 K/mm3 (0.1-0.6); Monocytes Percent Auto 8.8 % (2.6-8.5); Neutrophils Absolute Auto 6.7 K/mm3 (1.3-6.7); Neutrophils Percent Auto 66.8 % (45.5-73.1); Platelet Count Result 309 k/mm3 (150-375); Red Blood Count 4.25 M/mm3 (4.6-6.20); Red Cell Distribution Width 14.1 % (11.5-14.5)
[2025-02-13 05:48] LABS: Alanine Aminotransferase 15 U/L (6-50); Albumin Level 3.5 g/dL (3.5-5.1); Alkaline Phosphatase 101 U/L (38-126); Anion Gap 10 mmol/L (4-12); Aspartate Amino Transferase 27 U/L (17-59); Bilirubin,Total 0.5 mg/dL (0.2-1.3); Blood Urea Nitrogen 27 mg/dL (9-20); Calcium 8.5 mg/dL (8.4-10.2); Carbon Dioxide 21 mmol/L (22-30); Chloride 106 mmol/L (98-107); Estimated CRCL calculation 29 ml/min; Estimated Glomerular Filt Rate 41; Glucose 92 mg/dL (65-110); Potassium 4.1 mmol/L (3.4-5.0); Sodium 137 mmol/L (137-145)
[2025-02-13 07:51] VITALS: BP 143/50; PULSE 53; RESP 20; TEMP 36.7; O2SAT 97
[2025-02-13] MEDS: CHOLECALCIFEROL 1,000 UNITS TABLET 1000 UNITS PO (08:22)
[2025-02-13] MEDS: amLODIPine BESYLATE 10 MG TABLET PO (08:22)
[2025-02-13] MEDS: lisinopriL 10 MG TABLET PO (08:22)
[2025-02-13] MEDS: CEPHALEXIN 250 MG CAPSULE PO (08:22)
[2025-02-13] MEDS: HEPARIN SODIUM 5,000 UNITS/ML VIAL 5000 UNITS SUB-Q (08:22)
--- NOTE | 2025-02-13 11:18 | PC.NURSE ---
On 02/13/25, the student, [Linh Boston], provided care and completed [facility] documentation on this patient. I have reviewed the student's documentation and agree with the findings.
--- NOTE | 2025-02-13 13:15 | PCNWS ---
Weekly nutritional screen. Patient is tolerating current Regular diet with varied intake,50-100%. Pt may discharge as soon as today. No weight loss reported. No nutritional needs at this time.
--- NOTE | 2025-02-13 14:13 | PM.DS ---
DS: Admitting Diagnosis Discharge Date 02/13/25 Admitting Diagnosis Loss of consciousness DS: Discharge Diagnosis Discharge Diagnosis (1) Acute metabolic encephalopathy: Code(s): G93.41 - Metabolic encephalopathy Status: Acute Assessment and Plan: Patient presents with altered mental status. CT brain showing no acute findings. CT cervical spine showing no acute osseous abnormalities. WBC essentially normal. ABG 7.39/33/68 on RA. TSH normal. Lactic normal. Ammonia negative. B12 311 (MMA ordered). VitD 19.6 UDS negative. Alcohol, Acet and Salicylate level negative. COVID, Influenza and RSV PCR negative. UA consistent with UTI; Blood and Urine cultures collected. Rocephin started. UCx negative BCx NGTD Related to medications (narcotics, Ambien) and/or DAVIDSON and/or urine retention. Mental status better. Monitor for now. Follow up on cultures. 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 EKG initially showing 1st degree AVB. Repeat EKG showing 2nd degree AVB Type I. Echo showing normal biventricular size and systolic fxn, EF 65-70% and no significant valvular disease. He was on atenolol on admission but this was stopped. No plans on resuming this. Cardiology consulted with consideration of PM if his bradycardia does not improve. 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 Distended bladder which could be due to chronic outlet obstruction from the enlarged prostate. Nichole placed for retention. Retention could be related to recent urologic procedure and/or recent narcotics. Cr was 2.7 on admission and now trending down since Nichole in place. Metabolic mild gap acidosis noted felt related to the DAVIDSON. Baseline Cr unknown but suspect some CKD given the renal atrophy. Good UOP. Follow UOP, electrolytes and renal fxn. Plan for voiding trial prior to discharge when he is more awake and alert. (4) Urinary retention: Code(s): R33.9 - Retention of urine, unspecified Status: Acute Assessment and Plan: As above (5) Left knee pain: Code(s): M25.562 - Pain in left knee Status: Acute Assessment and Plan: - XR knee LT 3V: No acute osseous abnormality left knee. - PT/OT eval - Pt denies any SNF or HH - To be discharged after cleared by PT/OT (6) Acute UTI: Code(s): N39.0 - Urinary tract infection, site not specified Status: Acute Assessment and Plan: UA was consistent with UTI. UCx collected. Rocephin started. UCx negative. UTI ruled out (7) Hypertension: Code(s): I10 - Essential (primary) hypertension Status: Acute Assessment and Plan: Patient's blood pressure was reviewed on 02/08 Blood pressure remains mildly elevated Lisinopril and Norvasc resumed Continue to monitor (8) Thyroid nodule: Code(s): E04.1 - Nontoxic single thyroid nodule Status: Acute Assessment and Plan: CTA chest showing multinodular goiter with up to 3.6 cm mass in the left thyroid lobe. TSH normal. Plan for thyroid US as outpatient. (9) BPH (benign prostatic hyperplasia): Code(s): N40.0 - Benign prostatic hyperplasia without lower urinary tract symptoms Status: Acute Assessment and Plan: Stable. Terazosin on hold. Plan Patient is very hard of hearing as he left his hearing add at home, he presented with AMS change possibly 2/2 opioids, he mentation is improving, recently patient had a urological procedure outside, had urinary retention and patient has penile implant and it was difficulty to place Nichole, there is was concern his hypersomnolence and AMS may be related to bradycardia was seen by director of analytical development suspect 2/2 atenolol which was discontinued, patient HR and BP are more stable now and his mentation is improving. patient urine was suspicious for UTI patient was started on Rocephin, urine culture no growth so far, will stop Rocephin and start patient on keflex, will remove Nichole today and have urinate before discharging tomorrow, will monitor. Code status - Full VTE prophylaxis - SCDs; TANA DS: Summary Hospital Course Hospital Course: Patient is very hard of hearing as he left his hearing add at home, he presented with AMS change possibly 2/2 opioids, he mentation is improving, recently patient had a urological procedure outside, had urinary retention and patient has penile implant and it was difficulty to place Nichole, there is was concern his hypersomnolence and AMS may be related to bradycardia was seen by director of analytical development suspect 2/2 atenolol which was discontinued, patient HR and BP are more stable now and his mentation is improving. patient urine was suspicious for UTI patient was started on Rocephin, urine culture no growth so far, will stop Rocephin and start patient on keflex, will remove Nichole today and have urinate before discharging tomorrow, will monitor. Today patient is clinically stable and will [facility] Time Spent with Patient Time attestation: Total time spent providing and/or coordinating discharge services: Exam Narrative: Patient is comfortable, NAD HEENT: eyes are clear and none icteric LUNGS:CTA HEART: RR S1S2 ABD: BS+, Soft and nontender Lower extremities: no edema SKIN: nonjaundiced Neuro: grossly intact. DS: Data Data Completed and Pending Labs on day of discharge: Labs from last 24 hours 02/13/25 04:34 WBC 10.0 RBC 4.25 L Hgb 12.8 L Hct 38.5 L MCV 90.6 MCH 30.1 MCHC 33.2 RDW 14.1 Plt Count 309 MPV 10.2 Immature Gran % (Auto) 0.4 Neut % (Auto) 66.8 Lymph % (Auto) 20.9 [place] % (Auto) 8.8 H Eos % (Auto) 2.6 Baso % (Auto) 0.5 Lymph # (Auto) 2.09 [place] # (Auto) 0.9 H Eos # (Auto) 0.3 Baso # (Auto) 0.1 Abs Immat Gran (auto) 0.04 H Absolute Neuts (auto) 6.7 Absolute Nucleated RBC 0.000 Nucleated RBC % 0.0 Sodium 137 Potassium 4.1 Chloride 106 Carbon Dioxide 21 L Anion Gap 10 BUN 27 H Creatinine 1.62 H Estim Creat Clear Calc 29 Estimated GFR 41 L Glucose 92 Calcium 8.5 Total Bilirubin 0.5 AST 27 ALT 15 Alkaline Phosphatase 101 Total Protein 7.0 Albumin 3.5 Discharge Plan Discharge Attending physician on discharge: Sushil Roa Consulting providers: Evelio Harper; Frederick Fried; Raza Terrazas; Sushil Roa; Nicanor Schwartz; Misha Neumann; Aj Baltazar; Sarai Prado Discharging Clinician: Lacie Jean Patient Disposition: Home with Home Health Service Activity: as tolerated Diet: heart healthy Discharge Instructions: patient to follow up with his urologist, director of analytical development and primary care provider as soon as possible, patient is instructed if any symptoms worsen to go to nearest ER. Patient Instructions: Antibiotic Form, Heart Failure (GEN), Urinary Retention in Men (GEN) Patient Language: Spanish Stand Alone Forms: General Discharge Information Follow-up/Referrals: Patricio Yeboah [Other] Shayna Go DO [Physician] - Discharge Medications: New amlodipine 10 mg Tablet 10 mg PO DAILY Qty: 30 0RF cholecalciferol (vitamin D3) [Vitamin D3] 25 mcg (1,000 unit) Tablet 25 mcg PO DAILY Qty: 30 0RF mecobalamin (vitamin B12) 500 mcg tablet,chewable 500 mcg PO DAILY Qty: 90 0RF Continued amlodipine 10 mg tablet 10 mg PO DAILY atenolol 25 mg tablet 25 mg PO DAILY lisinopril-hydrochlorothiazide 20-25 mg tablet 2 tablet PO DAILY pregabalin 25 mg capsule 50 mg PO HS terazosin 5 mg capsule 5 mg PO HS testosterone 20.25 mg/1.25 gram (1.62 %) gel in metered-dose pump 1 pump topical DAILY zolpidem 12.5 mg tablet,ext release multiphase 12.5 mg PO HS PRN (Reason: sleep) Date of admission: 02/06/25 19:23 Primary Care Provider: Patricio Yeboah Admitting Provider: Adan Stallings Attending physician on admission: Lacie Jean Condition: Stable
== END 2025-02-13 15:07 | disposition home health service (06) | DRG 308 ==
LOC: ANHED 19:21 → ANHIMU 20:17
PROVIDERS: Internal Medicine; Student in an Organized Health Care Education/Training Program; Admitting Provider Internal Medicine; Emergency Provider Emergency Medicine; Visit Provider Family Medicine
DX: R00.1 Bradycardia, unspecified (principal); G93.41 Metabolic encephalopathy; J96.01 Acute respiratory failure with hypoxia; N17.9 Acute kidney failure, unspecified; T44.7X5A Adverse effect of beta-adrenoreceptor antagonists, initial encounter; T40.695A Adverse effect of other narcotics, initial encounter; T42.6X5A Adverse effect of other antiepileptic and sedative-hypnotic drugs, initial encounter; R33.9 Retention of urine, unspecified; I12.9 Hypertensive chronic kidney disease with stage 1 through stage 4 chronic kidney disease, or unspecified chronic kidney disease; N18.9 Chronic kidney disease, unspecified; I44.1 Atrioventricular block, second degree; E04.1 Nontoxic single thyroid nodule; N40.0 Benign prostatic hyperplasia without lower urinary tract symptoms; E83.41 Hypermagnesemia; E83.39 Other disorders of phosphorus metabolism; M25.562 Pain in left knee; Z20.822 Contact with and (suspected) exposure to COVID-19; W19.XXXA Unspecified fall, initial encounter
CPT/HCPCS: 36415; 36600; 70450; 71275; 72125; 73562; 74018; 74174; 76705; 80053; 80143; 80179; 80307; 81001; 82077; 82140; 82306; 82550; 82607; 82746; 82805; 82948; 83605; 83690; 83735; 83880; 83921; 84100; 84443; 84484; 85018; 85025; 85055; 85610; 85730; 87040; 87086; 87637; 93005; 93306; 96365; 96375; 97110; 97161; 97165; 97530; 97535; 99285; A9270; J0696; J1644; J2310; J2359; J3420; J7030; Q9967

== ENCOUNTER 2025-02-14 10:46 | Emergency (ER) | payer MEDICARE, SELFPAY ==
--- OUTSIDE RECORDS SUMMARY | 2025-02-14 10:50 | XMS_ITS | Encounter Summary ---
Author Organization [facility] Healthcare Address [address] [place] [id number] Care Team Providers Care Occ Med Physician Name Role Phone Patricio Yeboah MD Primary Care Provider [phone]- [phone] Encounter Details Date Type Department Care Team (Late st Contact Info) Description 02/09/2025 Orders Only [facility] Medical Group Cardiology [address] [facility] [address] [place] [address] Evelio Harper MD [address] [facility] [address] [place] [address] Social History Tobacco Use Types Packs/Day Years [...] on file Legal Sex Male 3:29 AM [employer] Gender Identity Not on file Sexual Orientation Not on file Occupation Industry Job Start Date Job End Date Retired Not on file Not on file Not on file documented as of this encounter Plan of Treatment Not on file documented as of this encounter Procedures Procedure Name Priority Date/Time Associated Diagnosis Comments CARDIOLOGY DOCUMENT SCAN Routine 02/08/2025 2:22 PM CDT CARDIOLOGY DOCUMENT SCAN Routine 02/07/2025 2:08 PM CDT documented in this encounter Results * Cardiology Document Scan (02/08/2025 2:22 PM CDT) Anatomical Region Laterality Modality Other us Evelio Harper MD [facility] CARDIAC SERVICES PROCEDURES F inal Result * Cardiology Document Scan (02/07/2025 2:08 PM CDT) Anatomical Region Laterality Modality Other us Evelio Harper MD [facility] CARDIAC SERVICES PROCEDURES F inal Result documented in this encounter Visit Diagnoses Not on filedocumented in this encounter Care Teams Occ Med Physician Relationship Specialty Start Date End Date Patricio Yeboah MD [address] [place] [address] PCP - General 12/11/16 documented as of this encounter
--- OUTSIDE RECORDS SUMMARY | 2025-02-14 10:50 | XMS_ITS | Clinical Summary ---
Author Organization [facility] Address [address] [place] [address] Care Team Providers Care Color Worker Name Role Phone Patricio Yeboah MD Primary Care Provider +1- [phone] Allergies No known active allergies Medications miscellaneous medical supply misc 1 each once for 1 dose 1 each 1 4 Active mometasone (NASONEX) 50 mcg/actuation nasal sprayIndications: Seasonal allergic rhinitis, unspecified trigger Administer 2 sprays into each nostril daily 17 g 11 5 Active diclofenac sodium (VOLTAREN) 1 % gel Apply 4 g topically 4 (four) times a day 200 g 11 5 01/07/20 26 Active lisinopril-hydroC HLOROthiazide (ZESTORETIC) 20-25 mg per tabletIndications :hypertension Take 2 tablets by mouth daily 60 tablet 11 5 01/10/20 26 Active terazosin (HYTRIN) 5 mg capsuleIndication s:Primary hypertension,Kraig gn prostatic hyperplasia with nocturia Take 1 capsule (5 mg total) by mouth nightly 90 capsule 1 5 01/10/20 26 Active atenoloL (TENORMIN) 25 mg tabletIndications :Essential hypertension,Prim donell hypertension Take 1 tablet (25 mg total) by mouth daily 90 tablet 3 5 01/10/20 26 Active amLODIPine (NORVASC) 10 mg tabletIndications :Essential hypertension Take 1 tablet (10 mg total) by mouth daily 90 tablet 2 5 Active traMADoL (ULTRAM) 50 mg tabletIndications :Chronic midline low back pain without sciatica Take 1 tablet (50 mg total) by mouth every 8 (eight) hours as needed for pain 90 tablet 3 5 Active zolpidem CR (AMBIEN CR) 12.5 mg CR tabletIndications :Insomnia Take 1 tablet (12.5 mg total) by mouth nightly as needed for sleep 30 tablet 3 5 07/08/20 25 Active pregabalin (LYRICA) 25 mg capsuleIndication s:Neuropathy Take 2 capsules (50 mg total) by mouth nightly 180 capsule 3 5 01/10/20 26 Active testosterone 20.25 mg/1.25 gram (1.62 %) gel in metered-dose pumpIndications:M cesilia hypogonadism Place 1 Pump on the skin daily 75 g 5 5 Active Active Problems Problem Noted Date Diagnosed Date [...] Assessment & Plan (03/20/2024 1:13 PM CDT): Renetta c:d. Pre-treatment iop: . S/p SLT. IOP great today off drops. No loss on OCT. CTM off drops. F/u annually. 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 IOP high 30/27 pretreatment. Has significant trouble with medications - [...] Encounters Date Type Department Care Team Description 02/11/2025 Telephone [facility] Cardiology [address] [place] [phone] Evelio Harper MD [facility] 30 Day Monitor Ordered 02/11/2025 Orders Only [facility] Cardiology [address] [place] [phone] Evelio Harper MD Bradycardia (Primary Dx) 02/10/2025 Telephone [facility] Cardiology [address] [facility] [address] [place] [phone] Patricio Nunes MD 02/10/[address] [address] Patricio Yeboah MD 02/09/2025 Orders Only [facility] Cardiology [address] [facility] [address] [place] [phone] Evelio Harper MD 02/06/2025 Telephone [facility] Gastroenterology [address] [place] [address] Office Building [address], [address] [place] [address] Vaishali Nowak RN GI call back 02/05/2025 Telephone [facility] Gastroenterology [address] [place] [address] Office Building [address], [address] [place] [address] Vaishali Nowak RN GI post ERCP kub recs 01/27/2025 2:30 PM CDT - 01/27/2025 3:30 PM CDT Surgery [facility] [place] [address] [facility] [address] [place] [address] Doug Maldonado MD ENDO ENDOSCOPIC RETROGRADE CHOLANGIOPANCREATOGRAPHY WITH STENT PLACEMENT [GI509] 01/27/2025 2:16 PM CDT Anesthesia Event [facility] [address] [facility] [address] [place] [address] Teo Boykin MD Leach, Shannin L., MIREYA 01/27/2025 1:51 PM CDT - 01/27/2025 4:35 PM CDT Hospital Encounter [facility] [address] [address] Doug Maldonado MD Calculus of bile duct without cholecystitis and without obstruction Discharge Disposition: Discharge to home or self care 01/21/[address] [phone] Patricio Yeboah MD 01/20/2025 3:20 PM CDT Office Visit [address] [phone] Patricio Yeboah MD Choledocholithiasis (Primary Dx) 01/16/2025 7:26 AM CDT - 01/16/2025 11:59 PM CDT Hospital Encounter [facility] Radiology [address] [place] [address] Elevated alkaline phosphatas e level; Transaminitis Discharge Disposition: Discharge to home or self care 01/16/2025 Telephone [facility] Specialty Services [address] [place] [phone] Noemy Mascorro RN GI Preprocedure 01/16/2025 Orders Only [address] [address] Patricio Yeboah MD Calculus of bile duct without cholecystitis and without obstruction (Primary Dx) 01/13/2025 Results Follow-Up [address] [address] Maisha Carrera CMA 01/12/[address] [address] Patricio Yeboah MD 01/12/2025 Orders Only [address] [address] Patricio Yeboah MD Elevated alkaline phosphatase level (Primary Dx); Transaminitis 01/09/2025 2:20 PM CDT Office Visit [address] [address] Patricio Yeboah MD Neuropathy (Primary Dx); Essential hypertension; Primary hypertension; Benign prostatic hyperplasia with nocturia; Chronic midline low back pain without sciatica; Primary insomnia; Male hypogonadism 01/06/2025 2:00 PM CDT Office Visit [facility] Rheumatology [address] [facility] 5th [place] [address] [place] [address] Eliseo Ziegler MD PhD Erosive osteoarthritis of both hands (Primary Dx); Pain in both hands 12/03/2024 Telephone [facility] [address] [address] Patricio Yeboah MD Med Refill from Last 3 Months Immunizations Immunization Administration [...] - spinal fusion (Added by TW Conv) AR TRACHEOSTOMY PLANNED SEPA RATE PROCEDURE Tracheostomy - for appx 4 months 1996 (Added by TW Conv) EYE SURGERY CATARACT EXTRACTION Bilateral Medical History Medical History Date Comments Personal history of other di seases of the circulatory system History of hypertension - (A dded by TW Conv) 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 - (Added by Conv) Rash and other nonspecific s kin eruption Maculopapular rash, generali zed - (Added by TW Conv) Personal history of other in fectious and parasitic diseases History of scabies - (Added by TW Conv) Pain in right hip Right hip pain - (Added by Conv) Generalized skin eruption du e to drugs and medicaments taken internally Cephalosporin drug ra sh - (Added by Conv) Family History Medical History Relation Name Comments Heart attack Brother Cancer Father Lung Heart attack Mother Family history of myocardial infarction - mi (Added by Conv) Glaucoma Neg Hx Relation Name Status [...] on file Legal 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 Gender Identity Not on file Sexual Orientation [...] history exists Medical Devices Implanted Type Area Medical Coder Device Identifier Shelf Expiration Date Model / Serial / Lot [employer] Carvalho 5fr 9cm Pancreatic Stent 6555 - [id number] Implanted:Qty: 1 on 01/27/2025 by Doug Maldonado MD at [facility] N/A: Pancreas [employer] 08/29/2029 [id number] / / [id number] Conmed Lashanda Viabil 8mm X 4cm Shortwire [id number] - [id number] - [id number] Implanted:Qty: 1 on 01/27/2025 by Doug Maldonado MD at [facility] N/A: Bile Duct Conmed Lashanda 09/29/2027 [id number] / [id number] / Procedures Procedure Name Priority Date/Time Associated Diagnosis Comments CARDIOLOGY DOCUMENT SCAN Routine 02/08/2025 2:22 PM CDT CARDIOLOGY DOCUMENT SCAN Routine 02/07/2025 2:08 PM CDT ERCP IP Routine 01/27/2025 3:12 PM CDT [...] Benign prostatic hyperplasia with nocturia Male hypogonadism from Last 3 Months Results * Cardiology Document Scan (02/08/2025 2:22 PM CDT) Anatomical Region Laterality Modality Other us Evelio Harper MD [facility] C[facility] SERVICES PROCEDURES F inal Result * Cardiology Document Scan (02/07/2025 2:08 PM CDT) Anatomical Region Laterality Modality Other us Evelio Harper MD CV CARDIAC SERVICES PROCEDURES F inal Result * FL ERCP Biliary and Pancreatic (01/27/2025 3:01 PM CDT) Narrative [id number] - 01/27/2025 3:01 PM CDT The images [...] GI ENDOSCOPY [facility] Patient Name: Jose Armando Greenberg Procedure Date: 01/27/2025 1:54 PM Date of : 1935 Admit Type: Outpatient Age: 89 Gender: Male Attending MD: Doug Maldonado M.D. Room: [facility] ENDOSCOPY ROOM 1 Note Status: Finalized [...] were discussed and informed consentwas obtained. The [id number] Duodenoscope wasintroduced through the mouth, and used to inject contrast into and used to inject contrast into the bile duct. The ERCP was accomplished without difficulty. Thepatient tolerated the procedure well. Findings: The orthodontic lab technician film was normal. The esophagus was successfully [...] cystic structure seen on comparison CT from 2013. This structure is grossly decreased in size [...] PSA, Total 9.7(HH) 0.0 - 4.0 ng/mL TASIA EDWAR[facility] Comment:notified provider Blood 01/09/2025 2:39 PM CDT 01/09/2025 2:56 PM CDT Patricio Yeboah MD LAB BLOOD ORDERABLES Final Result [facility] [address] [place] [address] * (ABNORMAL) CBC with auto differential (01/09/2025 2:39 PM CDT) WBC 8.6 3.5 - 10.0 K/uL [facility] RBC 3.83(L) 4.60 - 6.20 M/uL [facility] Hemoglobin 11.7(L) 13.9 - 17.7 g/dL [facility] Hematocrit 33.0(L) 35.0 - 55.0 % [facility] MCV 86.1 75.0 - 100.0 fL [facility] MCH 30.70 25.00 - 35.00 pg [facility] MCHC 35.60 31.00 - 38.00 g/dL [facility] RDW 14.0 11.0 - 16.0 % [facility] Platelets 275 140 - 400 K/uL [facility] MPV 8.5 8.0 - 11.0 fL [facility] Granulocyte, Absolute 6.5 1.2 - 8.0 K/uL [facility] Lymphocyte, Absolute 1.6 0.5 - 5.0 K/uL [facility] Monocyte, Absolute 0.5 0.1 - 1.5 K/uL [facility] Granulocyte, Percentage 75.5 35.0 - 80.0 % [facility] Lymphocyte, Percentage 19.2 15.0 - 50.0 % [facility] Monocyte, Percentage 5.3 2.0 - 15.0 % [facility] Blood 01/09/2025 2:39 PM CDT 01/09/2025 2:56 PM CDT Patricio Yeboah MD LAB BLOOD ORDERABLES Final Result [facility] [address] [place] [address] * Total testosterone (01/09/2025 2:39 PM CDT) Testosterone 335.5 193.0 - 740.0 ng/dL [facility] Blood 01/09/2025 2:39 PM CDT 01/09/2025 2:56 PM CDT Patricio Yeboah MD LAB BLOOD ORDERABLES Final Result Performing Organization Address City/[facility]/ZIP Co de Phone Number [facility] [address] [place] [address] * (ABNORMAL) Comprehensive metabolic panel (01/09/2025 2:39 PM CDT) Glucose 128 74 - 200 mg/dL [facility] BUN 39(H) 18 - 23 mg/dL [facility] Creatinine 2.0(H) 0.7 - 1.3 mg/dL [facility] eGFR 32 mL/min/1.7 3m2 [facility] BUN/Creat Ratio 20 Ratio [facility] Bilirubin, Total 1.0 0.0 - 1.2 mg/dL [facility] AST (SGOT) 64(H) 0 - 40 U/L [facility] ALT (SGPT) 53(H) 10 - 50 U/L [facility] Alkaline phosphatase 339(H) 40 - 129 U/L [facility] Calcium 8.6(L) 8.8 - 10.2 mg/dL [facility] Sodium 135 135 - 145 mEq/L [facility] Potassium 4.4 3.5 - 5.1 mEq/L [facility] Chloride 102 98 - 107 mEq/L [facility] CO2 22.2 22.0 - 32.0 mEq/L [facility] Anion Gap 11 3 - 12 mEq/L [facility] Total Protein 6.6 6.0 - 8.1 g/dL [facility] Albumin 3.7 3.5 - 5.2 g/dL [facility] Globulin 2.9 g/dL [facility] Albumin/Globulin 1.3 Ratio [facility] Blood 01/09/2025 2:39 PM CDT 01/09/2025 2:56 PM CDT Patricio Yeboah MD LAB BLOOD ORDERABLES Final Result Performing Organization Address City/[facility]/ZIP Co de Phone Number [facility] [address] [place] [address] from Last 3 Months Insurance [facility] MEDICARE ADVANTAGE [facility] MEDIC[facility] COMMERCIAL GENERIC [facility] MEDICARE ADVANTAGE Care Teams Color Worker Relationship Specialty Start Date End Date Patricio Yeboah MD [address] [place] [address] PCP - General 12/11/16
--- OUTSIDE RECORDS SUMMARY | 2025-02-14 10:50 | XMS_ITS | Referral Summary ---
Author Organization [facility] Address [address] [place] [address] Care Team Providers Care Bedspread Cutter Hand Name Role Phone Patricio Yeboah MD Primary Care Provider +1- [phone] Encounters Date Type Department Care Team Description 02/11/2025 Telephone [facility] Cardiology [address] [facility] [address] [place] [phone] Evelio Harper MD [facility] 30 Day Monitor Ordered 02/11/2025 Orders Only [facility] Medical [facility] Cardiology [address] [facility] [address] [place] [phone] Evelio Harper MD Bradycardia (Primary Dx) 02/10/2025 Telephone [facility] Cardiology [address] [facility] [address] [place] [phone] Patricio Nunes MD 02/10/[address] [address] Patricio Yeboah MD 02/09/2025 Orders Only [facility] Medical [facility] Cardiology [address] [facility] [address] [place] [phone] Evelio Harper MD 02/06/2025 Telephone [facility] Gastroenterology [address] [place] [address] Medical Office Building [address], [address] [place] [phone] Vaishali Nowak RN GI call back 02/05/2025 Telephone [facility] Gastroenterology [address] [place] [address] Medical Office Building [address], [address] [place] [address] Vaishali Nowak RN GI post ERCP kub recs 01/27/2025 2:16 PM CDT Anesthesia Event [facility] Digestive Disease [address] [place] [address] Teo Boykin MD Leach, Shannin L., MIREYA 01/27/2025 2:30 PM CDT - 01/27/2025 3:30 PM CDT Surgery [facility] Disease [address] [address] Doug Maldonado MD ENDO ENDOSCOPIC RETROGRADE CHOLANGIOPANCREATOGRAPHY WITH STENT PLACEMENT [GI509] 01/27/2025 1:51 PM CDT - 01/27/2025 4:35 PM CDT Hospital Encounter [address] [address] Doug Maldonado MD Calculus of bile duct without cholecystitis and without obstruction Discharge Disposition: Discharge to home or self care 01/21/[address] [address] Patricio Yeboah MD 01/20/2025 3:20 PM CDT Office Visit [address] [address] Patricio Yeboah MD Choledocholithiasis (Primary Dx) 01/16/2025 Telephone [facility] Specialty Services [address] [place] [address] Noemy Mascorro RN GI Preprocedure 01/16/2025 Orders Only [address] [address] Patricio Yeboah MD Calculus of bile duct without cholecystitis and without obstruction (Primary Dx) 01/16/2025 7:26 AM CDT - 01/16/2025 11:59 PM CDT Hospital Encounter [facility] Radiology [address] [place] [address] Elevated alkaline phosphatas e level; Transaminitis Discharge Disposition: Discharge to home or self care 01/13/2025 Results Follow-Up [address] [address] Maisha Carrera CMA 01/12/[address] [address] Patricio Yeboah MD 01/12/2025 Orders Only [address] [address] Patricio Yeboah MD Elevated alkaline phosphatase level (Primary Dx); Transaminitis 01/09/2025 2:20 PM CDT Office Visit [address] [address] Patricio Yeboah MD Neuropathy (Primary Dx); Essential hypertension; Primary hypertension; Benign prostatic hyperplasia with nocturia; Chronic midline low back pain without sciatica; Primary insomnia; Male hypogonadism 01/06/2025 2:00 PM CDT Office Visit [facility] Rheumatology [facility] 5th [place] [address] [place] [phone] Eliseo Ziegler MD PhD Erosive osteoarthritis of both hands (Primary Dx); Pain in both hands 12/03/[address] [address] Patricio Yeboah MD Med Refill from Last 3 Months Allergies No known active allergies Medications miscellaneous medical supply misc 1 each once for 1 dose 1 each 1 4 Active mometasone (NASONEX) 50 mcg/actuation nasal sprayIndications: Seasonal allergic rhinitis, unspecified trigger Administer 2 sprays into each nostril daily 17 g 5 Active diclofenac sodium (VOLTAREN) 1 % gel Apply 4 g topically 4 (four) times a day 200 g 5 01/07/20 26 Active lisinopril-hydroC HLOROthiazide (ZESTORETIC) 20-25 mg per tabletIndications :hypertension Take 2 tablets by mouth daily 60 tablet 5 01/10/20 26 Active terazosin (HYTRIN) 5 [...] annually. 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 Gender Identity Not on file Sexual Orientation [...] on file Medical Devices Implanted Type Area Charter Coordinator Device Identifier Shelf Expiration Date Model / Serial / Lot [employer] Carvalho 5fr 9cm Pancreatic Stent 6555 - [id number] Implanted:Qty: 1 on 01/27/2025 by Doug Maldonado MD at [facility] N/A: Pancreas [employer] 08/29/2029 6555 / / [id number] Conmed Lashanda Viabil 8mm X 4cm Shortwire [id number] - [id number] - [id number] Implanted:Qty: 1 on 01/27/2025 by Doug Maldonado MD at [facility] N/A: Bile Duct Conmed Lashanda 09/29/2027 [id number] / [id number] / Procedures Procedure Name Priority Date/Time Associated [...] Male Attending MD: Doug Maldonado M.D. Room: [facility] ENDOSCOPY ROOM 1 Note Status: Finalized [...] were discussed and informed consentwas obtained. The [id number] Duodenoscope wasintroduced through the mouth, and used to inject contrast into and used to inject contrast into the bile duct. The ERCP was accomplished without difficulty. Thepatient tolerated the procedure well. Findings: The jig maker film was normal. The esophagus was successfully [...] it. Electronically signed by: London Madden M.D. us Patricio Yeboah MD [facility] PROCEDURES Final Re sult * (ABNORMAL) PSA screen (01/09/2025 2:39 PM CDT) PSA, Total 9.7(HH) 0.0 - 4.0 ng/mL [facility] Comment:notified provider Blood 01/09/2025 2:39 PM CDT 01/09/2025 2:56 PM CDT Patricio Yeboah MD LAB BLOOD ORDERABLES Final Result [facility] [address] [place] [address] * (ABNORMAL) CBC with auto differential (01/09/2025 2:39 PM CDT) WBC 8.6 3.5 - 10.0 K/uL [facility] RBC 3.83(L) 4.60 - 6.20 M/uL [facility] Hemoglobin 11.7(L) 13.9 - 17.7 g/dL [facility] Hematocrit 33.0(L) 35.0 - 55.0 % [facility] MCV 86.1 75.0 - 100.0 fL [facility] MCH 30.70 25.00 - 35.00 pg [facility] MCHC 35.60 31.00 - 38.00 g/dL [facility] RDW 14.0 11.0 - 16.0 % [facility] Platelets 275 140 - 400 K/uL [facility] MPV 8.5 8.0 - 11.0 fL [facility] Granulocyte, Absolute 6.5 1.2 - 8.0 K/uL [facility] Lymphocyte, Absolute 1.6 0.5 - 5.0 K/uL [facility] Monocyte, Absolute 0.5 0.1 - 1.5 K/uL [facility] Granulocyte, Percentage 75.5 35.0 - 80.0 % [facility] Lymphocyte, Percentage 19.2 15.0 - 50.0 % [facility] Monocyte, Percentage 5.3 2.0 - 15.0 % [facility] Blood 01/09/2025 2:39 PM CDT 01/09/2025 2:56 PM CDT Patricio Yeboah MD LAB BLOOD ORDERABLES Final Result [facility] [address] [place] [address] * Total testosterone (01/09/2025 2:39 PM CDT) Testosterone 335.5 193.0 - 740.0 ng/dL [facility] Blood 01/09/2025 2:39 PM CDT 01/09/2025 2:56 PM CDT Patricio Yeboah MD LAB BLOOD ORDERABLES Final Result [facility] [address] [place] [address] * (ABNORMAL) Comprehensive metabolic panel (01/09/2025 2:39 PM CDT) Glucose 128 74 - 200 mg/dL [facility] BUN 39(H) 18 - 23 mg/dL [facility] Creatinine 2.0(H) 0.7 - 1.3 mg/dL [facility] eGFR 32 mL/min/1.7 3m2 [facility] BUN/Creat Ratio 20 Ratio [facility] Bilirubin, Total 1.0 0.0 - 1.2 mg/dL [facility] AST (SGOT) 64(H) 0 - 40 U/L [facility] ALT (SGPT) 53(H) 10 - 50 U/L [facility] Alkaline phosphatase 339(H) 40 - 129 U/L [facility] Calcium 8.6(L) 8.8 - 10.2 mg/dL [facility] Sodium 135 135 - 145 mEq/L [facility] Potassium 4.4 3.5 - 5.1 mEq/L [facility] Chloride 102 98 - 107 mEq/L [facility] CO2 22.2 22.0 - 32.0 mEq/L [facility] Anion Gap 11 3 - 12 mEq/L [facility] Total Protein 6.6 6.0 - 8.1 g/dL [facility] Albumin 3.7 3.5 - 5.2 g/dL [facility] Globulin 2.9 g/dL [facility] Albumin/Globulin 1.3 Ratio [facility] Blood 01/09/2025 2:39 PM CDT 01/09/2025 2:56 PM CDT Patricio Yeboah MD LAB BLOOD ORDERABLES Final Result Performing Organization Address City/[facility]/ZIP Co de Phone Number [facility] [address] [place] [address] from Last 3 Months Insurance [facility] MEDICARE ADVANTAGE [facility] MEDICARE ADVANTAGE [place] [id number] COMMERCIAL GENERIC [facility] MEDICARE ADVANTAGE Care Teams Bedspread Cutter Hand Relationship Specialty Start Date End Date Patricio Yeboah MD [address] [place] [address] PCP - General 12/11/16
--- OUTSIDE RECORDS SUMMARY | 2025-02-14 10:50 | XMS_ITS | Encounter Summary ---
Author Name [facility] Organization [facility] [place] Address [address] [place] [address] Care Team Providers Care Synthetic Plasterer Name Role Phone CORRINE BROUSSARD Primary Care Provider Unavailabl e Insurance Providers: All historical and current Section Date Range: From patient's date of to the date document was created. This section includes the names of all active insurance providers for the patient. Insurance Provider Type of Coverage Plan Name Start of Policy Coverage End of Policy Coverage Group Number Member ID Insurance Provider's Telephone Number Policy Villalpando's Name Patient's Relationship to Policy Villalpando MEDICARE (WNR) MEDICARE (M) PART A Sep 28, 1995 PART A [id number] [phone] FILTER,RO VIRI PATIENT MEDICARE (WNR) MEDICARE (M) PART B Sep 28, 1995 PART B [id number] [phone] FILTER,RO VIRI PATIENT MEDICARE (WNR) MEDICARE (M) PART A Sep 28, 1995 PART A [id number] FILTER,RO VIRI PATIENT MEDICARE (WNR) MEDICARE (M) PART B Sep 28, 1995 PART B [id number] FILTER,RO VIRI PATIENT Selected Encounter This section includes the information on record at [place] for the Encounter. 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 This section includes future appointments and future orders which are active, pending or scheduled. Future Appointments This section includes appointments that were scheduled to occur 6 months from the date of the Encounter, up to a maximum of 20 appointments. The data comes from all [place] treatment facilities. Appointment Date/Time Appointment Type Appointme nt Facility Name Feb 11, 2025 10:00 AM AMBULATORY - MEDICINE [facility] February 27, 2025 01:00 PM AMBULATORY - MEDICINE [facility] Apr 09, 2025 02:00 PM AMBULATORY - MEDICINE [facility] Apr 17, 2025 09:45 AM AMBULATORY - SURGERY [facility] Social History: Smoking Status (Most current) and Tobacco Use (All prior to encounter date) This section includes the most current, and the historical, smoking and tobacco- related health factors from the [place] facility where the Encounter took place. Current Smoking Status This section includes the most current smoking, or tobacco-related health factor, from the [place] facility where the Encounter took place. Date/Time Current Smoking Status Comment Juan grossman Jun 05, 2022 10:30 AM [place]-TOBACCO NEVER USED [facility] Tobacco Use History This section includes a history of the smoking, or tobacco-related health factors, that were collected on or before the date of the Encounter. The data comes from the [place] facility where the Encounter took place. Date/Time Smoking Status/Tobacco Use Comment F acility Jun 03, 2021 02:30 PM [place]-TOBACCO NEVER USED [facility] May 28, 2020 10:57 AM VA-TOBACCO NEVER USED [facility] May 31, 2018 01:44 PM VA-TOBACCO FORMER USER [facility] May 31, 2018 01:44 PM VA-TOBACCO QUIT 15 YRS OR MORE [facility] Encounter Notes: All associated encounter notes This section contains the clinical notes associated to the Encounter. Date/Time Encounter Note(s) Provider Source Feb 03, 2025 10:13 AM AUDIOLOGY E & M NO TE: [facility] TITLE: AUDIO EVALS ST STANDARD TITLE: AUDIOLOGY E & M NOTE DATE OF NOTE: FEB 03, 2025@10:13 ENTRY DATE: FEB 03, 2025@10:14:04 AUTHOR: SHANTEL WILSON EXP COSIGNER: URGENCY: STATUS: COMPLETED SUBJECT: audio Here today for an Audio/HAE. Unable to test due to hard impacted cerumen in the Left ear canal. Able to partially clear the Right canal. Could not clear the Left. Told him he has to see his PCP to have the Left ear cleared. Another audio was scheduled today for April 17. He understands he needs to see his PCP for ear cleaning prior to that. /susie/ SHANTEL WILSON Staff Department Operations Manager, Surgery Service Signed: 02/03/2025 10:26 SHNATEL WILSON [facility]
--- OUTSIDE RECORDS SUMMARY | 2025-02-14 10:50 | XMS_ITS | Continuity of Care Document ---
Author Name [facility] Organization [facility] Care Team Providers Care Internet Marketing Executive Name Role Phone [facility] Unavailable Unavailable Problems Combined list of problems from Department of Defense and Veterans Affairs facilities. It does not include entries that were removed or entered in error. Problem Status Onset Date Problem Type Date of Resolution Comments Source Chronic Low Back Pain Active 001 Condition Sep 23, 2001 Entered By: JACOB CUMMINS Comment: Fusion at L5-6, [place] 2000 Entered By: JACOB CUMMINS Comment: has had a total of 3 back surgeries in 2000 [facility] Cardiovascular Stress Test with Continuous Electrocardiographic Monitoring, Phys Active 999 Condition Sep 23, 2001 Entered By: JACOB CUMMINS Comment: [facility] Neck Pain Active 999 Condition Sep 23, 2001 Entered By: JACOB CUMMINS Comment: cervical fusion, 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 Sep 23, 2001 Entered By: JACOB CUMMINS Comment: Sleep Study at [place], repeat at [facility] 2000 Entered By: JACOB CUMMINS Comment: had tonsillectomy, adenoidentomy2000 Entered By: JACOB CUMMINS Comment: tracheostomy, 1996 [facility] Hypertension Active 995 Condition [facility] Back pain Active Condition [facility] Benign essential hypertension Active Condition [facility] Benign prostatic hyperplasia Active Condition [facility] Foot Pain (ICD-9-CM 719.47) Active Condition [facility] Hearing loss Active Condition [facility] Hearing loss Active Condition [facility] Hearing loss * (ICD-9-CM 389.9) Active Condition 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 Active Diagnosis [facility] Diagnosis: ICD-10-CM H90.3 Sensorineural hearing loss, bilateral Active Diagnosis [facility] Diagnosis: ICD-10-CM H90.6 Mixed conductive and sensorineural hearing loss, bilateral Active Diagnosis [facility] Diagnosis: ICD-10-CM H91.93 Unspecified hearing loss, bilateral Active Diagnosis [facility] Medications Combined list of outpatient medications from Department of Defense and [facility] Affairs facilities.Medications provided include 1) outpatient medications from the last 15 months, and 2) patient-reported medications. Medication Details Route Status Patient Instructions Prescription Expires Prescription Number Last Dispense Date Ordering Provider Order Date Order Qty Source AMLODIPINE BESYLATE 10MG TAB TAKE ONE TABLET BY MOUTH ONCE A DAY FOR HIGH BLOOD PRESSURE ORAL 03/14/2024 [id number] Marcos BROUSSARD 2023 60 [facility] ELIZABETH N AMLODIPINE BESYLATE 10MG TAB TAKE ONE TABLET BY MOUTH ONCE A DAY ORAL ACTIVE Jimmy BLAIR 2013 [facility] ATENOLOL 50MG TAB TAKE ONE-HALF TABLET BY MOUTH ONCE A DAY ORAL ACTIVE Marcos BROUSSARD 2021 [facility] DIVISMOIRA N HYDROCHLORO THIAZIDE 25MG/LISINO PRIL 20MG TAB TAKE ONE TABLET BY MOUTH EVERY MORNING ORAL ACTIVE Marcos BROUSSARD 2021 [facility] DIVISIO N TERAZOSIN HCL 2MG CAP TAKE 1 CAPSULE BY MOUTH AT BEDTIME ORAL ACTIVE EARNESTMarcos ANTONIO CARMEN 2018 [facility] DIVISIO N TESTOSTERON E ENANTHATE 200MG/ML INJ (IN OIL) INJECT 1 ML DEEP IM Q 2 WEEKS DEEP IM ACTIVE PLACIDOJUSTA CHARLES 2006 [facility] ZOLPIDEM TARTRATE 12.5MG TAB,SA TAKE ONE TABLET BY MOUTH AT BEDTIME ORAL ACTIVE Jimmy BLAIR 2013 [facility] Immunizations Combined list of available immunizations from the Department of Defense and Veterans Affairs facilities. Immunization Series Date Given Administered By Site Reaction Lot Number CVX Code Drug Bronc Breaker Status Comments Source INFLUENZA, HIGH-DOSE, TRIVALENT, PF 5 2023 135 complet ed HISTORICA L INFORMATI ON - FROM OTHER [facility] N TDAP 1 2023 115 complet ed HISTORICA L INFORMATI ON - FROM OTHER [facility], [facility] N INFLUENZA, HIGH-DOSE, QUADRIVALENT 4 2022 197 complet ed HISTORICA L INFORMATI ON - FROM OTHER [facility] PNEUMOCOCCAL CONJUGATE PCV20, POLYSACCHARID E [id number] CONJUGATE, ADJUVANT, PF 1 2022 216 complet ed HISTORICA L INFORMATI ON - [facility] INFLUENZA, HIGH-DOSE, QUADRIVALENT 3 2021 197 complet ed HISTORICA L INFORMATI ON - FROM OTHER [facility], [facility] N INFLUENZA, HIGH-DOSE, QUADRIVALENT 2 2020 197 complet ed HISTORICA L INFORMATI ON - FROM OTHER [facility] N INFLUENZA, UNSPECIFIED FORMULATION 2020 88 complet ed [facility] INFLUENZA, UNSPECIFIED FORMULATION 2019 88 complet ed [facility] INFLUENZA, HIGH DOSE SEASONAL 1 2018 135 complet ed HISTORICA L INFORMATI ON - [facility] ZOSTER RECOMBIN[facility] 2018 187 complet ed 02, Partner: [facility]. Administe red by: NOAH GARCIA (UMX=[phone]). Partner Lot#: [id number] Mfr: [employer] hKline; Dosage: 1 [facility] INFLUENZA, UNSPECIFIED FORMULATION 2013 88 complet ed [facility] TDAP 2013 115 complet ed Right Deltoid [facility] INFLUENZA, UNSPECIFIED FORMULATION 2012 88 complet ed [facility] office. [facility] INFLUENZA, UNSPECIFIED FORMULATION 2008 88 complet ed [facility] INFLUENZA, UNSPECIFIED FORMULATION 2005 88 complet ed [facility] OUTSIDE FLU SHOT (HISTORICAL) 2004 88 complet ed [facility] INFLUENZA (HISTORICAL) 2002 88 complet ed [facility] INFLUENZA, UNSPECIFIED FORMULATION 2001 88 complet ed [facility] INFLUENZA (HISTORICAL) 2000 88 [facility] ed [facility] N Encounters Combined list of: 1) Encounters from Department of [facility] Affairs facilities going backup to the last 18 months, not all [place] inpatient encounters are included; 2) Encounters from the Department of Defense facilities going backup to 280 months. Location Location Details Encounter Type Encounter Number Reason For Visit Attending Provider ADM Date DC Date Status Disposition Source [facility] Outpatient Encounter [id number] 08/24 [facility] HEARING AID REPAIR/MOD IFYING [id number] Diagnos is: ICD-10- CM H91.93 Unspeci fied hearing loss, bilater KRISTEN Monten[place] 12/11 [facility] REMOVE IMPACTED EAR WAX UNI [id number] Diagnos is: ICD-10- CM H91.93 Unspeci fied hearing loss, KRISTEN Salazar E 12/11 [facility] OFF/OP EST MAY X REQ PHY/QHP [id number] Diagnos is: ICD-10- CM H61.23 Impacte d nasim dsouza JON ATHAN D 12/12 [facility] [place] [id number] Diagnos is: ICD-10- CM H90.6 Mixed conduct manjeet and sensori neural hearing loss, SASHA Diaz 12/14 [facility] Outpatient Encounter [id number] 12/21 [facility] Outpatient Encounter [id number] 01/06 [facility] Outpatient Encounter [id number] 01/14 [facility] Outpatient Encounter [id number] 02/12 [facility] Outpatient Encounter [id number] 02/19 [facility] Outpatient Encounter [id number] 03/10 [facility] Outpatient Encounter [id number] 06/06 [facility] N [facility] Outpatient Encounter [id number] 08/12 [facility] N [facility] UNLISTED ORL SERVICE/PX [id number] Diagnos is: ICD-10- CM H90.3 Sensori neural hearing loss, HIPOLITO Gonzalez 10/01 [facility] REMOVE IMPACTED EAR WAX UNI [id number] Diagnos is: ICD-10- CM H90.A32 Mix cndct/s nrl hear loss,un i,l ear w rstrcd hear cntra side KRISTEN WILSON E 02/03 [facility] CASE MANAGEMENT [id number] Diagnos is: ICD-10- CM H61.23 Impacte d nasim dsouza JON ATHAN D 02/03 [facility] Social History Combined list of available smoking, tobacco, and other social history from Department of Defense and Veterans Affairs facilities. Social History Type Response Date Comment Source Tobacco smoking status NJIS IN-TOBACCO NEVER USED 06/05/2022 [facility] History of tobacco use IN-TOBACCO NEVER USED 06/03/2021 [facility] History of tobacco use IN-TOBACCO NEVER USED 05/28/2020 [facility] of [facility]2018 [facility] History of tobacco use QUIT TOBACCO >7 YEARS AGO 08/12/2014 [facility] History of tobacco use LIFETIME NON-USER OF TOBACCO 09/01/2013 never smoked [facility] History of tobacco use QUIT TOBACCO >7 YEARS AGO 12/07/2006 [facility] History of tobacco use LIFETIME NON-TOBACCO USER 12/22/2005 [facility] History of tobacco use CURRENT NON-TOBACCO USER-HX OF USE 06/08/2004 [facility] History of tobacco use CURRENT NON-TOBACCO USER-HX OF USE 04/21/2003 stopped 30yrs ago [facility] History of tobacco use CURRENT NON-TOBACCO USER-HX OF USE 06/24/2002 quit 30 years ago [facility] History of tobacco use CURRENT NON-TOBACCO USER-HX OF USE 09/23/2001 Quit 35 years ago [facility] Plan of Care List of future care activities from Department of Veterans Affairs facilities. Additional future care activities may be listed in the Assessment and Plan section. Date/Time Care Activity Care Activity Detail Juani ty 02/27/2025 AMBULATORY - MEDICINE AMBULATORY - MEDICI [facility]
--- OUTSIDE RECORDS SUMMARY | 2025-02-14 10:50 | XMS_ITS | Encounter Summary ---
Author Organization [facility] Healthcare Address [address] [place] [address] Care Team Providers Care Management Assistant Name Role Phone Patricio Yeboah MD Primary Care Provider [phone] Reason for Visit * Reason Onset Date Comments MCT 30 Day Monitor Ordered 02/11/2025 Encounter Details Date Type Department Care Team (Late st Contact Info) Description 02/11/2025 Telephone [facility] Cardiology [address] [place] [id number] Evelio Harper MD [address] [place], [place] [id number] MCT 30 Day Monitor Ordered Social History Tobacco Use Types Packs/Day Years [...] on file Legal Sex Male 3:29 AM DOLLYMAN Gender Identity Not on file Sexual Orientation Not on file Occupation Industry Job Start Date Job End Date Retired Not on file Not on file Not on file documented as of this encounter Miscellaneous Notes * Telephone Encounter - Niki Slaughter MA - 02/12/2025 11:22 AM CDT Left msg * Telephone Encounter - Niki Slaughter MA - 02/11/2025 3:23 PM CDT [facility]velio [facility] He's currently in the hospital, but could you order him a 30 day MCT monitor and have him come downto be fitted after discharge? Thanks, Evelio 02/11/25 Order placed and LM for pt documented in this encounter Plan of Treatment Not on file documented as of this encounter Visit Diagnoses Not on filedocumented in this encounter Care Teams Management Assistant Relationship Specialty Start Date End Date Patricio Yeboah MD [address] [place] [address] PCP - General 12/11/16 documented as of this encounter
--- OUTSIDE RECORDS SUMMARY | 2025-02-14 10:57 | XMS_ITS | Continuity of Care Document ---
Author Name [facility] Organization [facility] Care Team Providers Care Business Development Agent Name Role Phone [facility] Unavailable Unavailable Problems Combined list of problems from Department of Defense and Veterans Affairs facilities. It does not include entries that were removed or entered in error. Problem Status Onset Date Problem Type Date of Resolution Comments Source Chronic Low Back Pain Active 001 Condition Sep 23, 2001 Entered By: JACOB CUMMINS Comment: Fusion at L5-6, [place] 2000 Entered By: JACOB CUMMINS Comment: has had a total of 3 back surgeries in 2000 [facility] Cardiovascular Stress Test with Continuous Electrocardiographic [...] By: JACOB CUMMINS Comment: Sleep Study at [place], repeat at [place] 2000 Entered By: JACOB CUMMINS Comment: had tonsillectomy, adenoidentomy2000 Entered By: JACOB CUMMINS Comment: tracheostomy, 1996 [facility] Hypertension Active 995 Condition [facility] Back pain Active Condition [facility] Benign essential hypertension Active Condition [facility] Benign prostatic hyperplasia Active Condition [facility] Foot Pain (ICD-9-CM 719.47) Active Condition [facility] Hearing loss Active Condition [facility] Hearing loss Active Condition [facility] Hearing loss * (ICD-9-CM 389.9) Active Condition [facility] 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 Diagnosis: ICD-10-CM H90.A32 Mix cndct/snrl hear loss,uni,l ear w rstrcd hear cntra side Active Diagnosis [facility] Diagnosis: ICD-10-CM H90.3 Sensorineural hearing loss, bilateral Active Diagnosis [facility] Diagnosis: ICD-10-CM H90.6 Mixed conductive and sensorineural hearing loss, bilateral Active Diagnosis [facility] Diagnosis: ICD-10-CM H91.93 Unspecified hearing loss, bilateral Active Diagnosis [facility] Medications Combined list of outpatient medications from Department of Defense and [facility] Affairs facilities.Medications provided include 1) outpatient medications from the last 15 months, and 2) patient-reported medications. Medication Details Route Status Patient Instructions Prescription Expires Prescription Number Last Dispense Date Ordering Provider Order Date Order Qty Source AMLODIPINE BESYLATE 10MG TAB TAKE ONE TABLET BY MOUTH ONCE A DAY FOR HIGH BLOOD PRESSURE ORAL 03/14/2024 [id number] Marcos BROUSSARD 2023 60 [facility] N AMLODIPINE BESYLATE 10MG TAB TAKE ONE TABLET BY MOUTH ONCE A DAY ORAL ACTIVE Jimmy BLAIR 2013 [facility] ATENOLOL 50MG TAB TAKE ONE-HALF TABLET BY MOUTH ONCE A DAY ORAL ACTIVE Marcos BROUSSARD 2021 [facility] N HYDROCHLORO THIAZIDE 25MG/LISINO PRIL 20MG TAB TAKE ONE TABLET BY MOUTH EVERY MORNING ORAL ACTIVE Marcos BROUSSARD 2021 [facility] TERAZOSIN HCL 2MG CAP TAKE 1 CAPSULE BY MOUTH AT BEDTIME ORAL ACTIVE EARNESTMarcos ANTONIO CARMEN 2018 [facility] TESTOSTERON E ENANTHATE 200MG/ML INJ (IN OIL) INJECT 1 ML DEEP IM Q 2 WEEKS DEEP IM ACTIVE PLACIDOJUSTA CHARLES 2006 [facility] ZOLPIDEM TARTRATE 12.5MG TAB,SA TAKE ONE TABLET BY MOUTH AT BEDTIME ORAL ACTIVE Jimmy BLAIR 2013 [facility] Immunizations Combined list of available immunizations from the Department of Defense and Veterans Affairs facilities. Immunization Series Date Given Administered By Site Reaction Lot Number CVX Code Drug College President Status Comments Source INFLUENZA, HIGH-DOSE, TRIVALENT, PF 5 2023 135 complet ed HISTORICA L INFORMATI ON - FROM OTHER [facility] N TDAP 1 2023 115 complet ed HISTORICA L INFORMATI ON - FROM OTHER [facility], [facility] INFLUENZA, HIGH-DOSE, QUADRIVALENT 4 2022 197 complet ed HISTORICA L INFORMATI ON - FROM OTHER [facility] PNEUMOCOCCAL CONJUGATE PCV20, POLYSACCHARID E [id number] CONJUGATE, ADJUVANT, PF 1 2022 216 complet ed HISTORICA L INFORMATI ON - [facility] OTHER [facility] INFLUENZA, HIGH-DOSE, QUADRIVALENT 3 2021 197 complet ed HISTORICA L INFORMATI ON - FROM OTHER [facility], [facility] N INFLUENZA, HIGH-DOSE, QUADRIVALENT 2 2020 197 complet ed HISTORICA L INFORMATI ON - FROM OTHER [facility] N INFLUENZA, UNSPECIFIED FORMULATION 2020 88 complet ed [facility] INFLUENZA, UNSPECIFIED FORMULATION 2019 88 complet ed [facility] INFLUENZA, HIGH DOSE SEASONAL 1 2018 135 complet ed HISTORICA L INFORMATI ON - [facility] ZOSTER RECOMBINANT 2018 187 complet ed 02, Partner: [facility]. Administe red by: NOAH GARCIA (NDP=[phone]). Partner Lot#: [id number] Mfr: [employer] hKline; Dosage: 1 [facility] INFLUENZA, UNSPECIFIED FORMULATION 2013 88 complet ed [facility] TDAP 2013 115 complet ed Right Deltoid [facility] INFLUENZA, UNSPECIFIED FORMULATION 2012 88 complet ed [facility] office. [facility] INFLUENZA, UNSPECIFIED FORMULATION 2008 88 complet ed [facility] INFLUENZA, UNSPECIFIED FORMULATION 2005 88 complet ed [facility] OUTSIDE FLU SHOT (HISTORICAL) 2004 88 complet ed [facility] INFLUENZA (HISTORICAL) 2002 88 complet ed [facility] INFLUENZA, UNSPECIFIED FORMULATION 2001 88 complet ed [facility] INFLUENZA (HISTORICAL) 2000 88 [facility] ed [facility] Encounters Combined list of: 1) Encounters from Department of [facility] Affairs facilities going backup to the last 18 months, not all [place] inpatient encounters are included; 2) Encounters from the Department of Defense facilities going backup to 280 months. Location Location Details Encounter Type Encounter Number Reason For Visit Attending Provider ADM Date DC Date Status Disposition Source [facility] Outpatient Encounter [id number] 08/24 [facility] HEARING AID REPAIR/MOD IFYING [id number] Diagnos is: ICD-10- CM H91.93 Unspeci fied hearing loss, bilater KRISTEN [place] 12/11 [facility] REMOVE IMPACTED EAR WAX UNI [id number] Diagnos is: ICD-10- CM H91.93 Unspeci fied hearing loss, KRISTEN Salazar E 12/11 [facility] OFF/OP EST MAY X REQ PHY/QHP [id number] Diagnos is: ICD-10- CM H61.23 Impacte d nasim dsouza JON ATHAN D 12/12 [facility] [place] [id number] Diagnos is: ICD-10- CM H90.6 Mixed conduct manjeet and sensori neural hearing loss, SASHA Diaz 12/14 [facility] Outpatient Encounter [id number] 12/21 [facility] Outpatient Encounter [id number] 01/06 [facility] Outpatient Encounter [id number] 01/14 [facility] Outpatient Encounter [id number] 02/12 [facility] Outpatient Encounter [id number] 02/19 [facility] Outpatient Encounter [id number] 03/10 [facility] Outpatient Encounter [id number] 06/06 [facility] N [facility] Outpatient Encounter [id number] 08/12 [facility] N [facility] UNLISTED ORL SERVICE/PX [id number] Diagnos is: ICD-10- CM H90.3 Sensori neural hearing loss, HIPOLITO Gonzalez 10/01 [facility] REMOVE IMPACTED EAR WAX UNI [id number] Diagnos is: ICD-10- CM H90.A32 Mix cndct/s nrl hear loss,un i,l ear w rstrcd hear cntra side KRISTEN WILSON E 02/03 [facility] CASE MANAGEMENT [id number] Diagnos is: ICD-10- CM H61.23 Impacte d nasim dsouza JON ATHAN D 02/03 [facility] Social History Combined list of available smoking, tobacco, and other social history from Department of Defense and Veterans Affairs facilities. Social History Type Response Date Comment Source Tobacco smoking status [facility] [place]-TOBACCO NEVER USED 06/05/2022 [facility] History of tobacco use [place]-TOBACCO NEVER USED 06/03/2021 [facility] History of tobacco use [place]-TOBACCO NEVER USED 05/28/2020 [facility] History of tobacco use QUIT TOBACCO >7 YEARS AGO 08/12/2014 [facility] History of tobacco use LIFETIME NON-USER OF TOBACCO 09/01/2013 never smoked [facility] History of tobacco use QUIT TOBACCO >7 YEARS AGO 12/07/2006 [facility] History of tobacco use LIFETIME NON-TOBACCO USER 12/22/2005 [facility] History of tobacco use CURRENT NON-TOBACCO USER-HX OF USE 06/08/2004 [facility] History of tobacco use CURRENT NON-TOBACCO USER-HX OF USE 04/21/2003 stopped 30yrs ago [facility] History of tobacco use CURRENT NON-TOBACCO USER-HX OF USE 06/24/2002 quit 30 years ago [facility] History of tobacco use CURRENT NON-TOBACCO USER-HX OF USE 09/23/2001 Quit 35 years ago [facility] Plan of Care List of future care activities from Department of Veterans Affairs facilities. Additional future care activities may be listed in the Assessment and Plan section. Date/Time Care Activity Care Activity Detail Juani ty 02/27/2025 AMBULATORY - MEDICINE AMBULATORY - MEDICI NE [facility]
[2025-02-14 11:02] VITALS: BP 156/71; PULSE 57; RESP 17; TEMP 36.3; O2SAT 96
--- NOTE | 2025-02-14 11:09 | ED.GENADULT ---
HPI - General Adult General Chief complaint: Unspecified Stated complaint: urinary retention and other complaints Time Seen by Provider: 02/14/25 10:53 History of Present Illness HPI narrative: 89-year-old male presents to the emergency department for evaluation for urinary retention. Patient did have recent hospitalization at [facility] was discharged yesterday. Family states patient did have an indwelling Nichole catheter that was removed prior to discharge and since getting home patient has been unable to urinate. Patient does complain suprapubic abdominal pain. Patient does not have his hearing aids and is very hard of hearing. Family is present for the exam. Related Data Home Medications ?Medication ?Instructions ?Recorded ?Confirmed ?Last Taken ?Type amlodipine 10 mg tablet 10 mg PO DAILY 02/07/25 02/07/25 Unknown History atenolol 25 mg tablet 25 mg PO DAILY 02/07/25 02/07/25 Unknown History lisinopril 20 2 tablet PO DAILY 02/07/25 02/07/25 Unknown History mg-hydrochlorothiazide 25 mg tablet pregabalin 25 mg capsule 50 mg PO HS 02/07/25 02/07/25 Unknown History terazosin 5 mg capsule 5 mg PO HS 02/07/25 02/07/25 Unknown History testosterone 1 pump topical DAILY 02/07/25 02/07/25 Unknown History zolpidem 12.5 mg tablet,extended 12.5 mg PO HS PRN sleep 02/07/25 02/07/25 Unknown History release,multiphase Allergies Allergy/AdvReac Type Severity Reaction Status Date / Time No Known Allergies Allergy Verified 02/06/25 21:52 Review of Systems Review of Systems: All systems reviewed & are unremarkable except as noted in HPI and below [facility] Past Medical History Medical History (Updated 02/14/25 @ 12:13 by Gonzalez Izquierdo MD) BPH (benign prostatic hyperplasia) Family History Family History Son Overdose Mother Unknown family medical history Father Unknown family medical history Daughter Cancer Overdose Heart problem Gout Sibling Cancer Sibling Unknown family medical history Social History Social History Years smoked: 3 Smoking status: Former smoker Tobacco type: cigarettes Alcohol intake: never Substance use: never Substance use type: does not use Do You Feel Safe in your Home?: Yes Lack of Transportation: No Lack of Food: Never True Current Housing: I Have Housing Concerned About Future Housing: No Difficulty Paying Gas/Electric Bills: No Difficulty Paying for Meds: No Currently Unemployed: No Education: Grade School Difficulty w/ Childcare or Family Care: No Spiritual care concerns: No Exam Narrative: APPEARANCE: Well appearing, no pain, no distress, well-nourished. HEAD: normocephalic, atraumatic. EYES: PERRLA/EOMI, conjunctivae clear. NOSE: Normal no drainage EARS:TMS clear with good light reflex. THROAT: Pharynx clear, no exudate. NECK: Supple. No adenopathy, no masses. RESPIRATORY: Airway patent, respirations nonlabored. Clear to auscultation bilaterally, no rales, rhonchi, wheezing. CARDIOVASCULAR: Regular rate and rhythm without murmurs rubs or gallops. ABDOMINAL: Suprapubic abdominal tenderness MUSCULOSKELETAL: Moves all extremities. Strength/ROM intact, No edema, No calf tenderness. NEURO: Alert. Cranial nerves II through XII intact. Good gait. Good coordination SKIN: Warm, dry. Normal Color Course Vital Signs Vital signs: Vital Signs Temperature 97.4 F L 02/14/25 11:02 Pulse Rate 57 L 02/14/25 11:02 Respiratory Rate 17 02/14/25 11:02 Blood Pressure 156/71 H 02/14/25 11:02 Pulse Oximetry 96 02/14/25 11:02 Oxygen Delivery Room Air 02/14/25 11:02 Temperature 97.4 F L 02/14/25 11:02 Pulse Rate 50 L 02/14/25 12:15 Respiratory Rate 15 02/14/25 12:15 Blood Pressure 158/58 H 02/14/25 12:15 Pulse Oximetry 100 02/14/25 12:15 Oxygen Delivery Room Air 02/14/25 11:02 Medical Decision Making MDM Narrative Medical decision making narrative: 89-year-old male presents to the emergency department for evaluation for suprapubic abdominal pain and urinary retention. Bladder scan does show 650 mL of retained urine and patient states he is unable to urinate at all. Patient is on terazosin. Patient does feel improved after placement of the Nichole catheter. Patient has no abdominal tenderness to palpation. Patient was able to ambulate at his baseline. Differential Diagnosis Differential Diagnosis: Urinary retention, urinary tract infection Vital Signs Vital Signs: Vital Signs Temperature 97.4 F L 02/14/25 11:02 Pulse Rate 57 L 02/14/25 11:02 Respiratory Rate 17 02/14/25 11:02 Blood Pressure 156/71 H 02/14/25 11:02 Pulse Oximetry 96 02/14/25 11:02 Oxygen Delivery Room Air 02/14/25 11:02 Temperature 97.4 F L 02/14/25 11:02 Pulse Rate 50 L 02/14/25 12:15 Respiratory Rate 15 02/14/25 12:15 Blood Pressure 158/58 H 02/14/25 12:15 Pulse Oximetry 100 02/14/25 12:15 Oxygen Delivery Room Air 02/14/25 11:02 Lab Data Lab results reviewed: Yes I reviewed the patient's lab results. Labs: Lab Results 02/14/25 Range/Units 11:19 Urine Color Yellow (Yellow) Urine Appearance Clear (Clear) Urine pH 6.0 (5.0-9.0) Ur Specific [place] 1.011 (1.001-1.035) Urine Protein 2+ H (Negative) mg/dL Urine Glucose (UA) Negative (Negative) mg/dL Urine Ketones Negative (Negative) mg/dL Ur Blood (Man) Negative (Negative) Urine Nitrate Negative (Negative) Urine Bilirubin Negative (Negative) Urine Urobilinogen 0.2 (<2.0) mg/dL Leukocyte Esterase Rfl Negative (Negative) MAMIE/UL Urine RBC 0-2 (0-2) /hpf Urine WBC 0-5 (0-3) /hpf Ur Squamous Epith Cells None seen (Few) /hpf Urine Bacteria None seen /hpf Urine Casts 0-2 Discharge Plan Discharge Clinical Impression: Urinary retention Patient Disposition: Home Condition: Stable Instructions: Antibiotic Form, Nichole Catheter Placement and Care (ED) Additional Instructions: Nichole catheter care as directed. Continue to take your home medications including your terazosin as directed. Have close follow-up with Urology. Patient Language: Nepali Prescriptions: No Action amlodipine 10 mg tablet 10 mg PO DAILY atenolol 25 mg tablet 25 mg PO DAILY lisinopril-hydrochlorothiazide 20-25 mg tablet 2 tablet PO DAILY pregabalin 25 mg capsule 50 mg PO HS terazosin 5 mg capsule 5 mg PO HS testosterone 20.25 mg/1.25 gram (1.62 %) gel in metered-dose pump 1 pump topical DAILY zolpidem 12.5 mg tablet,ext release multiphase 12.5 mg PO HS PRN (Reason: sleep) amlodipine 10 mg Tablet 10 mg PO DAILY Qty: 30 0RF cholecalciferol (vitamin D3) [Vitamin D3] 25 mcg (1,000 unit) Tablet 25 mcg PO DAILY Qty: 30 0RF mecobalamin (vitamin B12) 500 mcg tablet,chewable 500 mcg PO DAILY Qty: 90 0RF Follow-up/Referrals: Edinson Harp MD [Physician] - PHYSICIAN NOT ON STAFF,NONSTAFF [Primary Care Provider] -
[2025-02-14 11:30] LABS: Add Urine Microscopic? YES; Appearance Urine Clear (Clear); Bacteria Urine None Seen /hpf; Bilirubin Urine Negative (Negative); Blood Urine Negative (Negative); Color Urine Yellow (Yellow); Glucose Urine UA Negative (Negative); Ketones Urine Negative (Negative); Leukocyte Esterase Ur Negative LEU/UL (Negative); Nitrate Urine Negative (Negative); Non Pathogenic Casts 0-2; Protein Urine 2+ mg/dL (Negative); RBC Urine 0-2 /hpf (0-2); Specific Grav Ur 1.011 (1.001-1.035); Squamous Epithelial Cell Urine None Seen /hpf (Few); Urobilinogen Urine 0.2 mg/dL (<2.0); WBC Urine 0-5 /hpf (0-3)
[2025-02-14 12:15] VITALS: BP 158/58; PULSE 50; RESP 15; O2SAT 100
--- NOTE | 2025-02-14 12:45 | PC.NURSE ---
was asked to walk patient to see how well he does. patient needed a lot of assistance to get out of bed, kept saying his knee cap hurt. once patient was out of bed, patient ambulated well with walker and SBAx1. patient walked up [place]ios and back down to room, patient settled into bed. ABIDA Cristina and CHEMO Izquierdo aware.
== END 2025-02-14 13:04 | disposition home or self-care (01) ==
PROVIDERS: Emergency Provider Emergency Medicine
DX: R33.9 Retention of urine, unspecified (principal); Z87.891 Personal history of nicotine dependence
CPT/HCPCS: 51702; 81001; 99283